=== PATIENT | male | born 1950 | race Caucasian/White ===

== ENCOUNTER 2017-12-15 08:43 | Outpatient (CLI) | payer MEDICARE, OTHER ==
--- NOTE | 2017-12-15 18:47 | Ultrasound Report ---
RIGHT LOWER EXTREMITY LIMITED NONVASCULAR ULTRASOUND: 12/15/2017 HISTORY: Pain at the below the knee amputation site. TECHNIQUE: Real-time scanning was performed with promotional representative static images obtained. FINDINGS: Ultrasound examination is performed in the area of clinical pain at the amputation site. No cystic or solid mass, fluid collection, or other abnormality is seen. IMPRESSION: NEGATIVE RIGHT LEG ULTRASOUND AT THE AMPUTATION SITE. AN EXPLANATION FOR PAIN IS NOT SEEN. TD: 12/15/2017 16:10
--- NOTE | 2017-12-15 18:50 | XRAY Report ---
RIGHT TIB-FIB: 12/15/2017 HISTORY: Amputation with pain at the amputation site. COMPARISON: None. FINDINGS: Patient has had a [id number] amputation. The amputation stump appears normal without evidence of periosteal reaction, significant heterotopic bone formation, foreign body, subcutaneous gas or other abnormality. There is adequate soft tissue covering the amputation site. IMPRESSION: NO UNEXPECTED FINDING STATUS POST BELOW THE KNEE AMPUTATION RIGHT LEG. TD: 12/15/2017 16:10
== END 2017-12-15 08:44 | disposition home or self-care (01) ==
LOC: DI 08:43
PROVIDERS: ATTEND Anesthesiology
DX: M79.604 Pain in right leg (principal); G54.6 Phantom limb syndrome with pain; Z89.511 Acquired absence of right leg below knee
CPT/HCPCS: 76882

== ENCOUNTER 2018-01-07 08:14 | Outpatient (CLI) | payer MEDICARE, OTHER ==
--- NOTE | 2018-01-08 08:40 | CT Report ---
Procedure Date: 01/07/2018 Accession Number: [id number] / [id number] Procedure: CT - Lumbar Spine W/O CPT Code: FULL RESULT: EXAM: CT LUMBAR SPINE WITHOUT CONTRAST EXAM DATE: 01/07/2018 09:11 AM. CLINICAL HISTORY: Chronic right lower extremity pain. COMPARISONS: None. TECHNIQUE: Thin-section axial images were acquired of the lumbar spine from T12 to S1 without contrast. Post-processing: Coronal and sagittal reformats. Other: None. In accordance with CT protocol optimization, one or more of the following dose reduction techniques were utilized for this exam: automated exposure control, adjustment of mA and/or KV based on patient size, or use of iterative reconstructive technique. FINDINGS: Alignment: Broad-based levoconvex asymmetric lumbar curve measuring about 11 degrees. Slight degenerative L2 on L3 retrolisthesis. Bones: Five [id number]-pwl-[id number] lumbar vertebral bodies are present. Diffuse chronic degenerative changes. No acute fracture, vertebral body height loss or displaced pars defect. Disk Levels/Facets: T12-L1: Degenerative anterior marginal spurring. Chronic small L1 superior endplate Schmorl's node anteriorly. No disk herniation or significant stenosis. L1-L2: Mild degenerative disk disease and facet arthropathy. Anterior marginal spurring. Asymmetric left of midline foraminal and extraforaminal zone disk protrusion. No significant stenosis or focal nerve root compression. L2-L3: Moderate degenerative disk disease. Vacuum disk. Marginal spurring. Disk space narrowing and chronic endplate degenerative appearing irregularities. Concentric disk bulge and additional asymmetric bulge or broad-based protrusion to the left of midline notably involving the left extraforaminal and foraminal zones. Mild to moderate foraminal narrowing on the left. The left subarticular zone is also mildly stenotic and on the right, mild to moderate foraminal stenosis is also present from intraforaminal disk protrusion with accompanying osteophytic spurring. Mild stenosis also of the central and right subarticular zones. L3-L4: Moderate degenerative disk disease. Moderate to marked right worse than left facet arthropathy. Marginal spurring. Diffuse disk bulge. Additional asymmetric bulge to the right of midline extending through the right foramen into the right extraforaminal zone. Moderately prominent stenosis of the central canal and lateral recesses secondary to bulging annulus and prominent posterior element hypertrophic degenerative changes including ligamenta flavum thickening. Degenerative foraminal stenosis is present bilaterally, mild on the left and moderate to severe on the right. L4-L5: Moderate degenerative disk disease. Mild right and moderate to severe left-sided facet arthropathy. Broad-based disk bulge is present accompanied by osteophytic spurring, especially prominent posteriorly with additional asymmetric bulge or broad-based protrusion to the left of midline contributing to stenosis of the left subarticular, foraminal and extraforaminal zones into which this asymmetric protrusion with osteophyte extends. Central stenosis is mild. Subarticular zone stenosis on the left is mild to moderate. Left foraminal zone stenosis is severe from a combination of soft disk and osteophyte as well as facet degenerative bony hypertrophy. Foraminal stenosis is at least moderate also on the right. L5-S1: Fused disk space. No significant stenosis. The L5 vertebra appears sacralized and transitional. Musculature: No acute abnormality or significant asymmetry. Other: Dorsal epidural spinal stimulator wire electrodes at T11 and T12. IMPRESSION: Prominent chronic multilevel degenerative changes in the lumbar spine with potentially significant multizone multilevel stenosis as detailed above. Mild broad-based levoscoliosis. Dorsal spinal nerve root stimulator hardware at the T11 and T12 levels. RADIA
== END 2018-01-07 08:15 | disposition home or self-care (01) ==
LOC: DI 08:14
PROVIDERS: ATTEND Internal Medicine
DX: M51.36 Other intervertebral disc degeneration, lumbar region (principal); M47.896 Other spondylosis, lumbar region; M51.26 Other intervertebral disc displacement, lumbar region; M48.061 Spinal stenosis, lumbar region without neurogenic claudication; Z97.8 Presence of other specified devices; M43.16 Spondylolisthesis, lumbar region; M41.86 Other forms of scoliosis, lumbar region
CPT/HCPCS: 72131

== ENCOUNTER 2020-01-13 06:51 | Outpatient (CLI) | payer MEDICARE, OTHER ==
--- NOTE | 2020-01-13 10:14 | Ultrasound Report ---
PROCEDURE: Aorta Screening INDICATIONS: AORTA SCREENING TECHNIQUE: Real time scanning was performed of the aorta and iliac arteries, with image documentatio n. COMPARISON: CT lumbar spine dated 01/07/2018 FINDINGS: Aorta: Proximal aortic diameter measures 2.8 x 2.7 cm. Mid-aorta measures 2.6 x 2.2 cm. Distal aor tic diameter is 2.2 x 2.1 cm. Iliac arteries: Right common iliac artery measures 1.6 cm. Left common iliac artery measures 1.5 cm . IMPRESSION: Abdominal aortic ectasia, stable. No evidence for abdominal aortic aneurysm. Recommend continued clinical and imaging surveillance with follow-up screening ultrasound in 5 years. Reviewed by: Carmine Desai MD on 01/13/2020 10:12 AM PDT Approved by: Carmine Desai MD on 01/13/2020 10:12 AM PDT Station ID: [id number]
--- NOTE | 2020-01-13 10:17 | Ultrasound Report ---
PROCEDURE: Bladder INDICATIONS: LOWER URINARY TRACT SX TECHNIQUE: Sonographic evaluation of the lower urinary collecting system. COMPARISON: None. FINDINGS: Multiple grayscale and color Doppler images of the urinary bladder and prostate were acquired. Visual ized urinary bladder wall is unremarkable for degree of bladder distention. No suspicious intralumina l mass lesion. Prevoid urinary bladder volume measured 293 mL. Post void residual volume measured 256 mL. Bilateral ureteral jets were visualized. Prostate gland measures 5.1 x 3.9 x 3.6 cm. Prostatic volume measured 37.4 mL. IMPRESSION: 1. Large post void residual volume of 256 mL. Otherwise, unremarkable sonographic evaluation of the u rinary bladder. 2. Prominent prostate gland. Reviewed by: Carmine Desai MD on 01/13/2020 10:16 AM PDT Approved by: Carmine Desai MD on 01/13/2020 10:16 AM PDT Station ID: [id number]
== END 2020-01-13 06:52 | disposition home or self-care (01) ==
LOC: DI 06:51
PROVIDERS: ATTEND Internal Medicine
DX: Z13.6 Encounter for screening for cardiovascular disorders (principal); I77.811 Abdominal aortic ectasia; N40.1 Benign prostatic hyperplasia with lower urinary tract symptoms
CPT/HCPCS: 76706; 76857

== ENCOUNTER 2020-12-31 14:36 | Inpatient (IN) | payer MEDICARE, OTHER ==
[2020-12-31 15:33] LABS: BASOPHILS # (AUTO) 0.1 10^3/uL (0.0-0.1); BASOPHILS % (AUTO) 0.7 %; EOSINOPHILS # (AUTO) 0.2 10^3/uL (0.0-0.7); EOSINOPHILS % (AUTO) 2.8 %; HCT - HEMATOCRIT 26.4 % (42.0-52.0); HGB - HEMOGLOBIN 8.6 g/dL (14.0-18.0); LYMPHOCYTES # (AUTO) 1.9 10^3/uL (1.5-3.5); LYMPHOCYTES % (AUTO) 23.6 %; MEAN CORPUSCULAR HEMOGLOBIN 29.9 pg (27.0-31.0); MEAN CORPUSCULAR HGB CONC 32.6 g/dL (32.0-36.0); MEAN CORPUSCULAR VOLUME 91.7 fL (80.0-94.0); MEAN PLATELET VOLUME 8.2 fL (7.4-11.4); MONOCYTES # (AUTO) 0.9 10^3/uL (0.0-1.0); MONOCYTES % (AUTO) 10.5 %; NEUTROPHILS # (AUTO) 5.1 10^3/uL (1.5-6.6); NEUTROPHILS % (AUTO) 62.2 %; PLT - PLATELET COUNT 278 10^3/uL (130-450); RED BLOOD COUNT 2.88 10^6/uL (4.70-6.10); RED CELL DISTRIBUTION WIDTH 13.4 % (12.0-15.0); WHITE BLOOD COUNT 8.2 x10^3/uL (4.8-10.8)
[2020-12-31 15:45] LABS: ALBUMIN 4.1 g/dL (3.2-5.5); ALBUMIN/GLOBULIN RATIO 1.5 (1.0-2.2); BILIRUBIN,TOTAL 0.6 mg/dL (0.2-1.0); CALCIUM 9.2 mg/dL (8.5-10.3); CREATININE 0.9 mg/dL (0.6-1.2); POTASSIUM 3.8 mmol/L (3.5-5.0); TOTAL PROTEIN 6.9 g/dL (6.7-8.2)
--- NOTE | 2020-12-31 15:54 | XRAY Report ---
PROCEDURE: Chest 1 View X-Ray INDICATIONS: Chest Pain TECHNIQUE: One view of the chest was acquired. COMPARISON: None FINDINGS: Surgical changes and devices: None. Lungs and pleura: No pleural effusions or pneumothorax. Lungs are clear. Mediastinum: Mediastinal contours appear normal. Heart size is normal. Bones and chest wall: No suspicious bony lesions. Overlying soft tissues appear unremarkable. IMPRESSION: No evidence acute pulmonary process. Reviewed by: Ronal Capps MD on 12/31/2020 2:53 PM LAINA Approved by: Ronal Capps MD on 12/31/2020 2:53 PM AKDT Station ID: [id number]
[2020-12-31] MEDS ORDERED: SODIUM CHLORIDE 0.9% 1,000 ML IV STA ×2 (16:37→16:39)
[2020-12-31] MEDS ORDERED: ONDANSETRON 4 MG/2 ML VIAL IVP PRN (16:43)
[2020-12-31] MEDS ORDERED: SODIUM CHLORIDE FLUSH 0.9% 10 ML SYRINGE IVP PRN (16:43)
--- NOTE | 2020-12-31 16:43 | ED Physician Documentation ---
History of Present Illness - Stated complaint Stated Complaint: CAN'T SWALLOW - Chief complaint Chief Complaint: Heent - History obtained from History obtained from: Patient, Family - History of Present Illness Timing: How many weeks ago (3-4) Pain level max: 0 Pain level now: 0 - Additonal information Additional information: Patient is a 70-year-old male who presents to the department today stating that he has had difficulty swallowing increasing over the past month or so. Has been down in [place], so did not seek care. Flew into [place] last night and came home today. He states that today he was attempting to eat an egg when even that had difficulty going down. He tried to drink milk afterwards and had to tilt himself forward so the milk would run back out. He states he is able to keep a very small amount of water down fluid. Unable to tolerate solids now. He states he has also had dark stools for the past several weeks. No colonoscopy in the past. Nothing makes it better or worse. No abdominal pain. No fevers. No chills. Currently not on any medications at home. Review of Systems Ten Systems: 10 systems reviewed and negative Constitutional: denies: Fever, Chills Ears: denies: Ear pain Nose: denies: Rhinorrhea / runny nose, Congestion Throat: denies: Sore throat Cardiac: denies: Chest pain / pressure Respiratory: denies: Cough, Wheezing GI: reports: Bloody / black stool. denies: Vomiting, Diarrhea, Hematemesis : denies: Dysuria, Frequency, Hesitancy Skin: denies: Rash Musculoskeletal: denies: Neck pain, Back pain Neurologic: denies: Headache PD PAST MEDICAL HISTORY - Past Medical History Past Medical History: No - Past Surgical History Past Surgical History: No - Allergies Allergies/Adverse Reactions: Allergies Allergy/AdvReac Type Severity Reaction Status Date / Time Tetanus Vaccines and Toxoid Allergy Unknown Verified 12/31/20 15:04 - Living Situation Living Situation: reports: With family Living Arrangement: reports: At home - Social History Does the pt have substance abuse?: No - Family History Family history: reports: Non contributory PD ED PE NORMAL - Vitals Vital signs reviewed: Yes - General General: Alert and oriented X 3, No acute distress - HEENT HEENT: PERRL, EOMI, Moist mucous membranes, Pharynx benign - Neck Neck: Supple, no meningeal sign - Cardiac Cardiac: RRR - Respiratory Respiratory: No respiratory distress, Clear bilaterally - Abdomen Abdomen: Soft, Non tender, Non distended - Rectal Rectal: Pt declined - Derm Derm: Warm and dry - Neuro Neuro: Alert and oriented X 3 - Psych Psych: Normal mood, Normal affect Results - Vitals Vitals: Vital Signs - 24 hr 12/31/20 14:55 Temperature 36.5 C Heart Rate 92 Respiratory 16 Rate Blood Pressure 116/66 O2 Saturation 98 Oxygen O2 Source Room air - Labs Labs: Laboratory Tests 12/31/20 12/31/20 12/31/20 15:29 15:29 15:29 WBC 8.2 RBC 2.88 L Hgb 8.6 L Hct 26.4 L MCV 91.7 MCH 29.9 MCHC 32.6 RDW 13.4 Plt Count 278 MPV 8.2 Neut # (Auto) 5.1 Lymph # (Auto) 1.9 [place] # (Auto) 0.9 Eos # (Auto) 0.2 Baso # (Auto) 0.1 Absolute Nucleated RBC 0.00 Nucleated RBC % 0.0 Sodium 141 Potassium 3.8 Chloride 106 Carbon Dioxide 26 Anion Gap 9.0 BUN 20 Creatinine 0.9 Estimated GFR (MDRD) 84 L Glucose 121 H Calcium 9.2 Total Bilirubin 0.6 AST 14 ALT 11 Alkaline Phosphatase 59 Troponin I High Sens 4.9 Total Protein 6.9 Albumin 4.1 Globulin 2.8 Albumin/Globulin Ratio 1.5 Lipase 24 PD MEDICAL DECISION MAKING - ED course Complexity details: reviewed results, re-evaluated patient, considered differential, d/w patient, d/w webmethods consultant ED course: Patient is a 70-year-old male with difficulty swallowing. Unable to tolerate solid foods currently. Able to drink small amounts of water, and manage saliva only. He does appear dehydrated. Given IV fluids. He also has a significant drop in his hemoglobin and has had dark stools. Given the inability to keep himself hydrated along with the significant anemia, discussed the case with Dr. Wright, general surgery who will plan for endoscopy and colonoscopy tomorrow. Discussed the case with Dr. Melendez, hospitalist who accepts This document was made in part using voice recognition software. While efforts are made to proofread this document, sound alike and grammatical errors may occur. Departure - Departure Disposition: ED Place in Observation Clinical Impression: Symptomatic anemia GI bleed Qualifiers: GI bleed type/associated pathology: unspecified gastrointestinal hemorrhage type Qualified Code(s): K92.2 - Gastrointestinal hemorrhage, unspecified Dysphagia Qualifiers: Dysphagia type: unspecified Qualified Code(s): R13.10 - Dysphagia, unspecified Condition: Stable Discharge Date/Time: 12/31/20 17:17
[2020-12-31] MEDS: D5NS W/20 MEQ KCL 1,000 ML IV SCH (17:41)
[2020-12-31] MEDS: SODIUM CHLORIDE FLUSH 0.9% 10 ML SYRINGE IVP SCH (17:48)
[2020-12-31 18:02] LABS: B. PARAPERTUSSIS- RESP PCR PAN NOT DETECTED; B. PERTUSSIS- RESP PCR PANEL NOT DETECTED; C. PNEUMONIAE- RESP PCR PANEL NOT DETECTED; CORONAVIRUS 229E-RESP PCR NOT DETECTED; CORONAVIRUS HKU1-RESP PCR NOT DETECTED; CORONAVIRUS NL63-RESP PCR NOT DETECTED; CORONAVIRUS OC43-RESP PCR NOT DETECTED; HUMAN METAPNEUMOVIRUS NOT DETECTED; INFLUENZA A- RESP PCR PANEL NOT DETECTED; INFLUENZA B - RESP PCR PANEL NOT DETECTED; M. PNEUMONIAE- RESP PCR PANEL NOT DETECTED; PARAINFLUENZA VIRUS 1 NOT DETECTED; PARAINFLUENZA VIRUS 2 NOT DETECTED; PARAINFLUENZA VIRUS 3 NOT DETECTED; PARAINFLUENZA VIRUS 4 NOT DETECTED; RHINOVIRUS/ENTEROVIRUS NOT DETECTED; RSV- RESP PCR PANEL NOT DETECTED; SARS-CoV-2 -RESP PCR PANEL NOT DETECTED
--- NOTE | 2020-12-31 19:05 | HISTORY & PHYSICAL EXAMINATION ---
Chief Complaint - Chief Complaint Chief Complaint: dysphagia and odynophagia History of Present Illness - Admitted From Admitted From:: [facility] ED - History Obtained From Records Reviewed: yes History obtained from: patient - History of Present Illness HPI Comment/Other: Patient is a 70-year-old male with medical history significant for insomnia only who presented to the ED today with complaint of difficulty and pain with swallowing. His symptoms have been going on for a couple of weeks. He normally resides in [facility] 8 months of the year and just returned yesterday. He reports chest pain with deep inspiration and a feeling like he has/needs to burp. 2 days ago he was able to tolerate ice cream. He can handle scrambled eggs however he has significant problems with foods like bread. With liquids like water he has to be sitting straight upright to be able to drink and after a period of time he still experiences dysphagia despite the caution. He also describes an incident 2 nights ago while he was eating he suddenly felt like everything was stuck in his throat. He went to the bathroom and simply leaned over and everything came back up. He denies nausea, vomiting, fever or chills. He reports mild abdominal pain. He has lost 40 pounds in the past 6 months but reports it was intentional. He is being admitted for further work-up to include an EGD. 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 Nerve stim place 2015. Removed 2019) - Family & Social History Family History Comment/Other: He denies any significant family history. Living arrangement: At home Living Situation: With spouse/s.o. Social History Notes: He lives with his . 8 months out of 12 in [place] and 4 months on [facility]. He is independent of activities of daily living. He does not use tobacco products, use alcohol or recreational substances. - POLST Patient has POLST: No POLST Status: Full Code Meds/Allgy - Allergies Allergies/Adverse Reactions: Allergies Allergy/AdvReac Type Severity Reaction Status Date / Time Tetanus Vaccines and Toxoid Allergy Unknown Verified 12/31/20 15:04 Review of Systems - Constitutional Constitutional: denies: Fatigue, Fever, Chills, Weakness - Eyes Eyes: denies: Pain - Ears, Nose & Throat Ears, Nose & Throat: denies: Ear pain - Cardiovascular Cariovascular: denies: Irregular heart rate, Palpitations, Chest pain, Edema - Respiratory Respiratory: denies: Cough, Sputum production, Wheezing, SOB at rest, SOB with exertion - Gastrointestinal Gastrointestinal: reports: Reflux/heartburn. denies: Abdominal distention, Nausea, Vomiting - Genitourinary Genitourinary: denies: Dysuria, Frequency, Urgency, Hematuria - Musculoskeletal Musculoskeletal: reports: Other (right bka stump). denies: Muscle pain, Back pain, Muscle aches - Integumentary Integumentary: denies: Rash, Pruritis, Lesions - Neurological Neurological: denies: General weakness, Focal weakness, Headache, Dizziness - Psychiatric Psychiatric: denies: Depression, Anxiety - Endocrine Endocrine: denies: Polyuria, Polydypsia - Hematologic/Lymphatic Hematologic/Lymphatic: denies: Anemia, Bruising Prior Level of Functionality: Patient is independent of activities of daily living. Exam - Vital Signs Vital Signs: Vital Signs x48h Temp Pulse Pulse Resp BP BP Pulse Ox 12/31/20 18:27 37.8 C 61 16 133/62 H 97 12/31/20 17:13 36.5 C 66 18 137/73 H 100 12/31/20 14:55 36.5 C 92 16 116/66 98 - Physical Exam General Appearance: positive: No acute distress, Alert Eyes Bilateral: positive: PERRL, EOMI ENT: positive: No signs of dehydration Neck: positive: Nml inspection, No JVD, Trachea midline Respiratory: positive: Chest non-tender, No respiratory distress, Breath sounds nml. negative: Wheezes, Rales, Rhonchi Cardiovascular: positive: Regular rate & rhythm, No murmur Abdomen: positive: Non-tender, Nml bowel sounds, No distention. negative: Guarding, Rebound Back: positive: Nml inspection Skin: positive: No rash, Warm, Dry Extremities: positive: Full ROM, No pedal edema, Other (tenderness at right bka stump) Neurologic/Psychiatric: positive: Oriented x3, Mood/affect nml Conclusion/Plan - Problem List (1) Dysphagia Conclusion/Plan: Patient made strict n.p.o. IV hydration with D5+normal saline+ 20 mEq KCl at 83 mL/h Dr. Euceda with general surgery consulted for EGD in the morning Another consideration is differential will be Chaga's Disease. Qualifiers: Dysphagia type: unspecified Qualified Code(s): R13.10 - Dysphagia, unspecified (2) Odynophagia Conclusion/Plan: Patient made strict n.p.o. IV hydration with D5+normal saline+ 20 mEq KCl at 83 mL/h Dr. Euceda with general surgery consulted for EGD in the morning (3) Insomnia Conclusion/Plan: On zolpidem - Lab Results Fish Bones: 12/31/20 15:29 12/31/20 15:29 Core Measures - Anticipated LOS I expect patient to be DC'd or transferred within 96 hours.: Yes - DVT/VTE - Prophylaxis VTE/DVT Device ordered at admit?: Yes
[2020-12-31] MEDS: HYDROcod/ACETAM 7.5 MG/325 MG TABLET PO PRN (20:06)
[2020-12-31] MEDS: ZOLPIDEM 5 MG TABLET PO PRN (22:52)
[2021-01-01] MEDS: SODIUM CHLORIDE FLUSH 0.9% 10 ML SYRINGE IVP SCH ×4 (02:47→23:46)
[2021-01-01] MEDS: HYDROcod/ACETAM 7.5 MG/325 MG TABLET PO PRN ×3 (05:26→19:27)
[2021-01-01] MEDS: D5NS W/20 MEQ KCL 1,000 ML IV SCH ×2 (05:30→16:57)
[2021-01-01 05:37] LABS: HCT - HEMATOCRIT 24.1 % (42.0-52.0); HGB - HEMOGLOBIN 7.7 g/dL (14.0-18.0); MEAN CORPUSCULAR HEMOGLOBIN 29.1 pg (27.0-31.0); MEAN CORPUSCULAR VOLUME 90.9 fL (80.0-94.0); MEAN PLATELET VOLUME 8.7 fL (7.4-11.4); RED BLOOD COUNT 2.65 10^6/uL (4.70-6.10); RED CELL DISTRIBUTION WIDTH 13.1 % (12.0-15.0); WHITE BLOOD COUNT 5.4 x10^3/uL (4.8-10.8)
[2021-01-01 05:54] LABS: CALCIUM 8.2 mg/dL (8.5-10.3); CREATININE 0.8 mg/dL (0.6-1.2); POTASSIUM 3.5 mmol/L (3.5-5.0)
[2021-01-01 06:16] LABS: FOLATE 10.01 ng/mL (5.90 - >24.8)
--- NOTE | 2021-01-01 08:40 | HISTORY & PHYSICAL EXAMINATION ---
Chief Complaint - Chief Complaint Chief Complaint: pain and difficulty on swallowing History of Present Illness - Admitted From Admitted From:: ED - History Obtained From Records Reviewed: yes History obtained from: pt Exam Limitations: none - History of Present Illness HPI Comment/Other: He describes living a healthy life and being well until about 3 weeks ago. He had about 30 lbs intentional weight loss on a keto diet. About 3 weeks ago he developed progressive difficulty and pain on swallowing and presence of low c hest epigastric pain. He states he does not drink, smoke, and has had no significant heart burn symptoms. He denies lower abdominal symptoms. 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 Nerve stim place 2015. Removed 2019) - Family & Social History Family History Comment/Other: He denies any significant family history. Living arrangement: At home Living Situation: With spouse/s.o. Social History Notes: He lives with his . 8 months out of 12 in [place] and 4 months on [facility]. He is independent of activities of daily living. He does not use tobacco products, use alcohol or recreational substances. - POLST Patient has POLST: No POLST Status: Full Code Meds/Allgy - Allergies Allergies/Adverse Reactions: Allergies Allergy/AdvReac Type Severity Reaction Status Date / Time Tetanus Vaccines and Toxoid Allergy Unknown Verified 12/31/20 15:04 Review of Systems - Other Findings Other Findings: 10 pt ros as above otherwise unremarkable Exam - Vital Signs Reviewed Vital Signs: Yes Vital Signs: Vital Signs x48h Temp Pulse Resp BP Pulse Ox 01/01/21 07:15 37.3 C 62 18 124/69 97 01/01/21 03:14 37.0 C 70 18 135/55 H 96 - Physical Exam General Appearance: positive: Alert Eyes Bilateral: positive: PERRL, EOMI Neck: positive: No JVD Respiratory: positive: No respiratory distress, Breath sounds nml Cardiovascular: positive: Regular rate & rhythm Abdomen: positive: Non-tender, No distention Neurologic/Psychiatric: positive: Oriented x3 Conclusion/Plan - Problem List (1) Dysphagia Conclusion/Plan: Plan EGD with biopsies, possible dilation. parq held and consent obtained Qualifiers: Dysphagia type: unspecified Qualified Code(s): R13.10 - Dysphagia, unspecified - Lab Results Fish Bones: 01/01/21 05:20 01/01/21 05:20 - Diagnostic Imaging Results Diagnostic Imaging Results: positive: Read independently (normal chest xray)
--- NOTE | 2021-01-01 10:52 | PHARMACY PROGRESS NOTE ---
- Best Possible Medication History Admit Date and Time: 12/31/20 6701 Processed by: Pharmacy Medication History completed: Yes Patient Interview: Completed (PATIENT ABLE TO CONFIRM HOME MEDICATIONS) As the person ultimately responsible for medication therapy, providers are able to order a medication from an existing home medication list in [facility] via the "Reconcile Routine" prior to Confirmation of that medication by human resources support specialist. Such practice is discouraged except when the physician, in their clinical judgment, deems that a medical need exists for a medication without regard to previous use.
--- NOTE | 2021-01-01 12:40 | ANESTHESIA ---
Pre-Anesthesia VS, & Labs - Diagnosis anemia, dysphagia - Procedure EGD Vital Signs: Temp Pulse Resp BP Pulse Ox 37.3 C 71 16 131/64 H 98 01/01/21 11:00 01/01/21 11:00 01/01/21 11:00 01/01/21 11:00 01/01/21 11:00 Height: 6 ft 5 in Weight (kg): 89.35 kg Body Mass Index: 23.3 BMI Classification: Healthy weight - NPO >8 hours - Lab Results Current Lab Results: Laboratory Tests 01/01/21 05:20: Vitamin B12 380, Folate 10.01 01/01/21 05:20: Sodium 138, Potassium 3.5, Chloride 106, Carbon Dioxide 23, Anion Gap 9.0, BUN 13, Creatinine 0.8, Estimated GFR (MDRD) 96, Glucose 117 H, Calcium 8.2 L, Iron 24 L, TIBC 329, % Saturation 7 L, Transferrin 235 01/01/21 05:20: WBC 5.4, RBC 2.65 L, Hgb 7.7 L, Hct 24.1 L, MCV 90.9, MCH 29.1, MCHC 32.0, RDW 13.1, Plt Count 224, MPV 8.7 12/31/20 15:29: Troponin I High Sens 4.9 12/31/20 15:29: Sodium 141, Potassium 3.8, Chloride 106, Carbon Dioxide 26, Anion Gap 9.0, BUN 20, Creatinine 0.9, Estimated GFR (MDRD) 84 L, Glucose 121 H, Calcium 9.2, Total Bilirubin 0.6, AST 14, ALT 11, Alkaline Phosphatase 59, Total Protein 6.9, Albumin 4.1, Globulin 2.8, Albumin/Globulin Ratio 1.5, Lipase 24 12/31/20 15:29: WBC 8.2, RBC 2.88 L, Hgb 8.6 L, Hct 26.4 L, MCV 91.7, MCH 29.9, MCHC 32.6, RDW 13.4, Plt Count 278, MPV 8.2, Neut # (Auto) 5.1, Lymph # (Auto) 1.9, [place] # (Auto) 0.9, Eos # (Auto) 0.2, Baso # (Auto) 0.1, Absolute Nucleated RBC 0.00, Nucleated RBC % 0.0 Fish Bones: 01/01/21 05:20 01/01/21 05:20 Home Medications and Allergies Home Medications: Ambulatory Orders Citalopram [CeleXA] 10 mg PO DAILY 01/01/21 HYDROcodone/ACET 10/325 [[place] 10 mg/325 mg] 1 tab PO BID PRN 01/01/21 Lisinopril [Zestril] 20 mg PO DAILY 01/01/21 Zolpidem Tartrate [Ambien] 10 mg PO QPM PRN 01/01/21 Active Medications Hydrocodone Bitart/Acetaminophen (Hydrocod/Acetam 7.5 Mg/325 Mg Tablet) 1 tab PO Q4HR PRN PRN Reason: PAIN Last Admin: 01/01/21 09:44 Dose: 1 tab Documented by: Potassium Chloride/Dextrose/Sod Cl (D5ns W/20 Meq Kcl) 1,000 mls @ 83.33 mls/hr IV .Q12H1M [facility] Last Admin: 01/01/21 05:30 Dose: 83.33 mls/hr Documented by: Ondansetron HCl (Ondansetron 4 Mg/2 Ml Vial) 4 mg IVP Q6HR PRN PRN Reason: Nausea / Vomiting Sodium Chloride (Sodium Chloride Flush 0.9% 10 Ml Syringe) 10 ml IVP PRN PRN PRN Reason: NEEDED PER PROVIDER ORDERS Sodium Chloride (Sodium Chloride Flush 0.9% 10 Ml Syringe) 10 ml IVP 0100,0900,1700 [facility] Last Admin: 01/01/21 09:45 Dose: Not Given Documented by: Zolpidem Tartrate (Zolpidem 5 Mg Tablet) 5 mg PO QPM PRN PRN Reason: Insomnia Last Admin: 12/31/20 22:52 Dose: 5 mg Documented by: Citalopram [CeleXA] 10 mg PO DAILY 01/01/21 HYDROcodone/ACET 10/325 [[place] 10 mg/325 mg] 1 tab PO BID PRN 01/01/21 Lisinopril [Zestril] 20 mg PO DAILY 01/01/21 Zolpidem Tartrate [Ambien] 10 mg PO QPM PRN 01/01/21 Allergies/Adverse Reactions: Allergies Allergy/AdvReac Type Severity Reaction Status Date / Time Tetanus Vaccines and Toxoid Allergy Unknown Verified 12/31/20 15:04 Anes History & Medical History - Anesthetic History Anesthesia Complications: reports: No previous complications - Medical History Cardiovascular: reports: None Pulmonary: reports: None Gastrointestinal: reports: Other (dysphagia) Urinary: reports: None Neuro: reports: None Musculoskeletal: reports: None, Other (recent weightloss 40 lbs) Endocrine/Autoimmune: reports: None Blood Disorders: reports: Anemia Skin: reports: None Smoking Status: Never smoker Psychosocial: reports: No issues indicated History of Cancer?: No Other Past Medical History: Insomnia - Surgical History Orthopedic: reports: Other (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 Nerve stim place 2016. Removed 2019) Exam General: Alert, Oriented x3, Cooperative, No acute distress Dental: WNL Mouth Openin Fingerbreadth Neck Mobility: Normal Mallampati classification: II Thyromental Distance: 4-6 cm Mental/Cognitive Status: Alert/Oriented X3, Normal for patient Plan Anesthesia Type: Total IV Consent for Procedure(s) Verified and Reviewed: Yes Code Status: Attempt Resuscitation ASA classification: 2-Mild systemic disease Is this case an emergency?: No
[2021-01-01] MEDS ORDERED: LIDOCAINE-MPF 2% 5 ML VIAL ONE (15:07)
[2021-01-01] MEDS ORDERED: fentaNYL 100 MCG/2 ML VIAL ONE (15:07)
[2021-01-01] MEDS ORDERED: MIDAZOLAM 2 MG/2 ML VIAL ONE (15:07)
[2021-01-01] MEDS ORDERED: PROPOFOL 200 MG/20 ML VIAL IVP ONE (15:07)
--- NOTE | 2021-01-01 15:57 | PROVIDER PROGRESS NOTE ---
Progress Note 70-year-old male who presents with anemia as well as dysphagia, dyspepsia, who was recommended for upper endoscopy per my partner covering call. He is status post below that listed procedures: 1. On entering the esophagus immediately appreciated was a large necrotic distal esophageal/gastroesophageal mass with friability and associated oozing 2. There were variceal-like prominences within the gastric cardia extending from the esophagus which were difficult to delineate from the associated necrosis from the gastroesophageal junctional mass 3. Duodenum normal. No evidence of of duodenitis. Cold forcep biopsy obtained. Hemostatic. 4. Antrum without any antritis. Biopsies obtained cold forceps. Hemostatic. Patent pylorus. 5. Retroflexion was notable for the above listed areas including the necrotic gastroesophageal junctional mass and cardial prominence is consistent with varices. 6. Necrotic tumor biopsied Gastroesophageal junction circumferential.. This was performed cautiously to assure no issues as it relates to bleeding. Plan would be as follows: 1. Transfer to a higher level of care with the ability to address endoscopic hemostasis. 2. Imaging to include staging work-up for what is likely a forgot gastroesophageal malignancy 3. Facility with oncologic resources including radiation amongst others including advance interventional gastroenterology 4. Serial H&H's, transfuse as necessary. 5. Bowel rest Please note that voice recognition software was used to transcribe this note and inadvertent errors might persist in spite of review and editing. I am obliged to you for your attention. I am thankful to you for allowing me to participate with you in this care of this patient.
--- NOTE | 2021-01-01 16:10 | PROVIDER PROGRESS NOTE ---
Assessment/Plan - Problem List (1) Gastric mass Assessment/Plan: The patient underwent EGD done by Dr. George Euceda today. The findings are that of a bleeding gastric mass which is likely malignancy. Was likely causing the obstruction, inability to swallow and pain with swallowing. Will admit to full inpatient status for further management of this. He may need transfer to specialized gastric surgeons, per Dr. Euceda recommendations. Will follow hemoglobin and transfuse if he goes under 7. (2) Esophageal varices determined by endoscopy Assessment/Plan: This patient denied drinking any alcohol or having alcohol abuse issues. Possibly back pressure from the obstructing mass may have caused the esophageal varices. We will continue n.p.o. status. Plan to transfer to specialists: GI, surgery, for higher level of care. (3) UGI bleed Assessment/Plan: This mass is bleeding and he also has esophageal varices which could have bled. Will follow hemoglobin q12 hand transfuse if he goes under 7. (4) Anemia Assessment/Plan: As in #3 above. (5) Insomnia Assessment/Plan: As per Hx - Current Meds Current Meds: Current Medications Generic Name Dose Route Start Last Admin Trade Name Freq PRN Reason Stop Dose Admin Hydrocodone Bitart/Acetaminophen 1 tab 12/31/20 19:42 01/01/21 09:44 Hydrocod/Acetam 7.5 Mg/325 Mg Tablet PO 1 tab Q4HR PRN Administration PAIN Potassium Chloride/Dextrose/Sod Cl 1,000 mls @ 83.33 mls/hr 12/31/20 17:00 01/01/21 05:30 D5ns W/20 Meq Kcl IV 83.33 mls/hr .Q12H1M SERVANDO Administration Sodium Chloride 10 ml 12/31/20 17:00 01/01/21 09:45 Sodium Chloride Flush 0.9% 10 Ml Syringe IVP Not Given 0100,0900,1700 SERVANDO Zolpidem Tartrate 5 mg 12/31/20 20:29 12/31/20 22:52 Zolpidem 5 Mg Tablet PO 5 mg QPM PRN Administration Insomnia - Lab Result Fish Bone Diagrams: 01/02/21 17:15 01/02/21 05:20 - Additional Planning My Orders: My Active Orders 12/31/20 16:43 Oxygen Therapy [RC] .PRN Ondansetron Inj [Zofran Inj] 4 mg IVP Q6HR PRN Sodium Chloride Flush 0.9% [Normal Saline Flush 0.9%] 10 ml IVP PRN PRN 12/31/20 16:44 Activity Orders [RC] Q2HR IO [RC] IOSHIFT Initiate Bowel Care Protocol [RC] .protocol Initiate Line Care Protocol [RC] QSHIFT Initiate Personal Care Protoco [RC] .protocol Vital Signs [RC] Q4HR Code Status [OTHERS] Routine Condition of Patient [OTHERS] Routine DVT Prophylaxis [OTHERS] Routine 12/31/20 16:46 IV Insert [RC] .ONCE MARIA ALEJANDRA Hose [RC] QSHIFT 12/31/20 17:00 D5ns W/20 Meq KCl 1,000 ml IV 83.33 mls/hr Sodium Chloride Flush 0.9% [Normal Saline Flush 0.9%] 10 ml IVP 0100,0900,1700 01/01/21 08:00 General Surgery Consult [CONS] Routine 01/01/21 10:53 DIET [NPO] [DIET] 01/01/21 16:04 Admit [Admit \\ Transfer \\ Status] [RC] .ONCE 01/01/21 17:00 HEMOGLOBIN AND HEMATOCRIT [HEME] Q12H 01/02/21 05:00 CMP [COMPREHENSIVE METABOLIC PANEL] [CHEM] DAILYLAB HEMOGLOBIN AND HEMATOCRIT [HEME] Q12H 01/02/21 17:00 HEMOGLOBIN AND HEMATOCRIT [HEME] Q12H 01/03/21 05:00 HEMOGLOBIN AND HEMATOCRIT [HEME] Q12H Subjective - Subjective Patient Reports: Resting Comfortably, Other (Has "hunger pains". He thinks he will be able to tolerate clear liquids.) Objective Vital Signs: Vital Signs - 24 hr 12/31/20 12/31/20 12/31/20 17:13 18:27 23:49 Temperature 36.5 C 37.8 C 36.5 C Heart Rate 66 Heart Rate [ 61 95 Brachial] Respiratory 18 16 14 Rate Blood Pressure 137/73 H Blood Pressure 133/62 H 119/64 [Left Brachial artery] O2 Saturation 100 97 95 01/01/21 01/01/21 01/01/21 03:14 07:15 11:00 Temperature 37.0 C 37.3 C 37.3 C Heart Rate Heart Rate [ 70 62 71 Brachial] Respiratory 18 18 16 Rate Blood Pressure Blood Pressure 135/55 H 124/69 131/64 H [Left Brachial artery] O2 Saturation 96 97 98 01/01/21 16:03 Temperature 37.1 C Heart Rate Heart Rate [ 88 Brachial] Respiratory 18 Rate Blood Pressure Blood Pressure 149/78 H [Left Brachial artery] O2 Saturation 96 Oxygen O2 Source Room air I&O (Last 24 Hrs): Intake and Output Totals x24h 12/30/20 12/31/20 01/01/21 23:59 23:59 23:59 Intake Total 500 983.294 Output Total 1725 Balance 500 -741.706 General: Alert, Oriented x3 HEENT: Mucous membr. moist/pink Neck: Supple, No JVD Neuro: Alert, Non Focal Cardiovascular: Regular rate, No murmurs Respiratory: No respiratory distress, Breath sounds nml Abdomen: Normal bowel sounds, Soft, No tenderness Extremities: No edema - Results Results: Laboratory Results WBC 5.4 x10^3/uL (4.8-10.8) 01/01/21 05:20 RBC 2.65 10^6/uL (4.70-6.10) L 01/01/21 05:20 Hgb 7.7 g/dL (14.0-18.0) L 01/01/21 05:20 Hct 24.1 % (42.0-52.0) L 01/01/21 05:20 MCV 90.9 fL (80.0-94.0) 01/01/21 05:20 MCH 29.1 pg (27.0-31.0) 01/01/21 05:20 MCHC 32.0 g/dL (32.0-36.0) 01/01/21 05:20 RDW 13.1 % (12.0-15.0) 01/01/21 05:20 Plt Count 224 10^3/uL (130-450) 01/01/21 05:20 MPV 8.7 fL (7.4-11.4) 01/01/21 05:20 Neut # (Auto) 5.1 10^3/uL (1.5-6.6) 12/31/20 15:29 Lymph # (Auto) 1.9 10^3/uL (1.5-3.5) 12/31/20 15:29 [place] # (Auto) 0.9 10^3/uL (0.0-1.0) 12/31/20 15:29 Eos # (Auto) 0.2 10^3/uL (0.0-0.7) 12/31/20 15:29 Baso # (Auto) 0.1 10^3/uL (0.0-0.1) 12/31/20 15:29 Absolute Nucleated RBC 0.00 x10^3/uL 12/31/20 15:29 Nucleated RBC % 0.0 /100WBC 12/31/20 15:29 Sodium 138 mmol/L (135-145) 01/01/21 05:20 Potassium 3.5 mmol/L (3.5-5.0) 01/01/21 05:20 Chloride 106 mmol/L (101-111) 01/01/21 05:20 Carbon Dioxide 23 mmol/L (21-32) 01/01/21 05:20 Anion Gap 9.0 (6-13) 01/01/21 05:20 BUN 13 mg/dL (6-20) 01/01/21 05:20 Creatinine 0.8 mg/dL (0.6-1.2) 01/01/21 05:20 Estimated GFR (MDRD) 96 (>89) 01/01/21 05:20 Glucose 117 mg/dL (70-100) H 01/01/21 05:20 Calcium 8.2 mg/dL (8.5-10.3) L 01/01/21 05:20 Iron 24 ug/dL (45-182) L 01/01/21 05:20 TIBC 329 ug/dL (250-450) 01/01/21 05:20 % Saturation 7 % (20-50) L 01/01/21 05:20 Transferrin 235 mg/dL (180-329) 01/01/21 05:20 Total Bilirubin 0.6 mg/dL (0.2-1.0) 12/31/20 15:29 AST 14 IU/L (10-42) 12/31/20 15:29 ALT 11 IU/L (10-60) 12/31/20 15:29 Alkaline Phosphatase 59 IU/L (42-121) 12/31/20 15:29 Troponin I High Sens 4.9 ng/L (2.3-19.7) 12/31/20 15:29 Total Protein 6.9 g/dL (6.7-8.2) 12/31/20 15:29 Albumin 4.1 g/dL (3.2-5.5) 12/31/20 15:29 Globulin 2.8 g/dL (2.1-4.2) 12/31/20 15:29 Albumin/Globulin Ratio 1.5 (1.0-2.2) 12/31/20 15:29 Lipase 24 U/L (22-51) 12/31/20 15:29 Vitamin B12 380 pg/mL (180-914) 01/01/21 05:20 Folate 10.01 ng/mL (5.90 - >24.8) 01/01/21 05:20 Nasal Adenovirus (PCR) NOT DETECTED 12/31/20 16:57 Nasal B. parapertussis DNA (PCR) NOT DETECTED 12/31/20 16:57 Nasal Coronavir 229E PCR NOT DETECTED 12/31/20 16:57 Nasal Coronavir HKU1 PCR NOT DETECTED 12/31/20 16:57 Nasal Coronavir NL63 PCR NOT DETECTED 12/31/20 16:57 Nasal Coronavir OC43 PCR NOT DETECTED 12/31/20 16:57 Nasal Enterovir/Rhinovir PCR NOT DETECTED 12/31/20 16:57 Nasal Influenza B PCR NOT DETECTED 12/31/20 16:57 Nasal Influenza A PCR NOT DETECTED 12/31/20 16:57 Nasal Parainfluen 1 PCR NOT DETECTED 12/31/20 16:57 Nasal Parainfluen 2 PCR NOT DETECTED 12/31/20 16:57 Nasal Parainfluen 3 PCR NOT DETECTED 12/31/20 16:57 Nasal Parainfluen 4 PCR NOT DETECTED 12/31/20 16:57 Nasal RSV (PCR) NOT DETECTED 12/31/20 16:57 Nasal B.pertussis DNA PCR NOT DETECTED 12/31/20 16:57 Nasal C.pneumoniae (PCR) NOT DETECTED 12/31/20 16:57 David Human Metapneumo PCR NOT DETECTED 12/31/20 16:57 Nasal M.pneumoniae (PCR) NOT DETECTED 12/31/20 16:57 Nasal SARS-CoV-2 (PCR) NOT DETECTED 12/31/20 16:57
[2021-01-01 17:13] LABS: HCT - HEMATOCRIT 24.3 % (42.0-52.0); HGB - HEMOGLOBIN 7.8 g/dL (14.0-18.0)
--- NOTE | 2021-01-01 18:06 | ANESTHESIA POST OP EVALUATION ---
Anesthesia Post Eval - Post Anesthesia Eval Vitals: Last Vital Signs Temp 37.1 C 01/01/21 16:03 Pulse 88 01/01/21 16:03 Resp 18 01/01/21 16:03 BP 149/78 H 01/01/21 16:03 Pulse Ox 96 01/01/21 16:03 CV Function Including HR & BP: Stable Pain Control: Satisfactory Nausea & Vomiting: Negative Mental Status: Baseline Respiratory Status: Airway Patent Hydration Status: Satisfactory Anesthesia Complications: None
[2021-01-01] MEDS: ZOLPIDEM 5 MG TABLET PO PRN (23:45)
[2021-01-02] MEDS: D5NS W/20 MEQ KCL 1,000 ML IV SCH ×2 (04:38→16:40)
[2021-01-02] MEDS: HYDROcod/ACETAM 7.5 MG/325 MG TABLET PO PRN ×5 (04:38→22:08)
[2021-01-02 05:50] LABS: HCT - HEMATOCRIT 24.2 % (42.0-52.0); HGB - HEMOGLOBIN 7.8 g/dL (14.0-18.0)
[2021-01-02 06:00] LABS: ALBUMIN 3.4 g/dL (3.2-5.5); ALBUMIN/GLOBULIN RATIO 1.3 (1.0-2.2); ALKALINE PHOSPHATASE 59 IU/L (42-121); ALT ALANINE AMINOTRANSFERASE < 10 IU/L (10-60); AST ASPARTATE AMINOTRANSFERASE 11 IU/L (10-42); BILIRUBIN,TOTAL 0.6 mg/dL (0.2-1.0); BUN - BLOOD UREA NITROGEN 8 mg/dL (6-20); CALCIUM 8.2 mg/dL (8.5-10.3); CARBON DIOXIDE - CO2 23 mmol/L (21-32); CHLORIDE 106 mmol/L (101-111); CREATININE 0.6 mg/dL (0.6-1.2); GFR - MDRD 134 (>89); GLUCOSE 108 mg/dL (70-100); POTASSIUM 3.5 mmol/L (3.5-5.0); SODIUM 137 mmol/L (135-145)
[2021-01-02] MEDS: SODIUM CHLORIDE FLUSH 0.9% 10 ML SYRINGE IVP SCH ×2 (10:01→17:34)
[2021-01-02] MEDS ORDERED: polyethylene glycoL 3350 17 GM PACKET PO SCH (14:00)
--- NOTE | 2021-01-02 17:03 | Discharge Plan ---
Discharge Plan Problem Reviewed?: Yes Disposition: 02 Transfer Acute Care Hosp Condition: Stable Diet: Regular (Full Liquid) No Smoking: If you smoke, Please STOP! Call for help. Follow-up with: Michael House MD [Primary Care Provider] -
--- NOTE | 2021-01-02 17:05 | DISCHARGE SUMMARY ---
"Discharge Summary Admit Date: 01/01/21 Discharge Date: 01/02/21 Discharging Provider: Nathan Eaton MD Primary Care Provider: Michael El Condition at Discharge: Stable Discharge Disposition: 02 Transfer Acute Care Hosp - DIAGNOSES Admission Diagnoses: Dysphagia Odynophagia Weight loss Discharge Diagnoses with Status of Each Condition: Esophageal massnewly diagnosed, guarded Acute blood loss anemiastable, somewhat worsened Weight lossstable Diet aphasia stable, unchanged Dysphagiaunchanged - HPI History of Present Illness: Patient is a 70-year-old male with medical history significant for insomnia only who presented to the ED today with complaint of difficulty and pain with swallowing. His symptoms have been going on for a couple of weeks. He normally resides in [facility] 8 months of the year and just returned yesterday. He reports chest pain with deep inspiration and a feeling like he has/needs to burp. 2 days ago he was able to tolerate ice cream. He can handle scrambled eggs however he has significant problems with foods like bread. With liquids like water he has to be sitting straight upright to be able to drink and after a period of time he still experiences dysphagia despite the caution. He also describes an incident 2 nights ago while he was eating he suddenly felt like everything was stuck in his throat. He went to the bathroom and simply leaned over and everything came back up. He denies nausea, vomiting, fever or chills. He reports mild abdominal pain. He has lost 40 pounds in the past 6 months but reports it was intentional. He is being admitted for further work-up to include an EGD. - CONSULTS | PROCEDURES Consultations: Dr George Euceda Procedures: EGD: 70-year-old male who presents with anemia as well as dysphagia, dyspepsia, who was recommended for upper endoscopy per my partner covering call. He is status post below that listed procedures: 1. On entering the esophagus immediately appreciated was a large necrotic distal esophageal/gastroesophageal mass with friability and associated oozing 2. There were variceal-like prominences within the gastric cardia extending from the esophagus which were difficult to delineate from the associated necrosis from the gastroesophageal junctional mass 3. Duodenum normal. No evidence of of duodenitis. Cold forcep biopsy obtained. Hemostatic. 4. Antrum without any antritis. Biopsies obtained cold forceps. Hemostatic. Patent pylorus. 5. Retroflexion was notable for the above listed areas including the necrotic gastroesophageal junctional mass and cardial prominence is consistent with varices. 6. Necrotic tumor biopsied Gastroesophageal junction circumferential.. This was performed cautiously to assure no issues as it relates to bleeding. Plan would be as follows: 1. Transfer to a higher level of care with the ability to address endoscopic hemostasis. 2. Imaging to include staging work-up for what is likely a forgot gastroesophageal malignancy 3. Facility with oncologic resources including radiation amongst others including advance interventional gastroenterology 4. Serial H&H's, transfuse as necessary. 5. Bowel rest - Dr George Euceda - HOSPITAL COURSE Hospital Course: After admission, the patient was hemodynamically stable and was able to tolerate clear liquids. His diet was not advanced due to concern for aspiration and obstruction. He was also painful to swallow. The following day after admission, on 01/01/2021, patient underwent EGD by Dr. George Euceda. This found a bleeding gastric mass in the distal gastroesophageal junction with necrotic features, suggestive of possible malignancy. Biopsies were taken with results pending at the time of discharge. Patient remained relatively stable, with minor discomfort and symptoms however his hemoglobin and hematocrit did slowly trend downward throughout the hospital stay.Hemoglobin level on admission was 8.6, hematocrit 26.4, morning on the day of discharge was 7.8/24.2. After discussion with surgeon performing EGD, Dr. Euceda it was decided that the patient would benefit from transfer to a facility with a higher level of care to have advanced endoscopy capabilities, palliative radiation, and possibly thoracic surgery consultation for resection of this mass. The team at [facility] in [place] were contacted and were kind enough to accept the patient in transfer having spoken with Dr. Pillo Francis and Dr. Odell Goins, thoracic surgeon and hospitalist respectively. - ALLERGIES Allergies/Adverse Reactions: Allergies Allergy/AdvReac Type Severity Reaction Status Date / Time Tetanus Vaccines and Toxoid Allergy Unknown Verified 12/31/20 15:04 - MEDICATIONS Home Medications: Ambulatory Orders Medication Instructions Recorded Confirmed Citalopram [CeleXA] 10 mg PO DAILY 01/01/21 01/01/21 HYDROcodone/ACET 10/325 [[place] 10 1 tab PO BID PRN 01/01/21 01/01/21 mg/325 mg] Lisinopril [Zestril] 20 mg PO DAILY 01/01/21 01/01/21 Zolpidem Tartrate [Ambien] 10 mg PO QPM PRN 01/01/21 01/01/21 - PHYSICAL EXAM AT DISCHARGE General Appearance: positive: No acute distress Eyes Bilateral: positive: Normal inspection ENT: positive: ENT inspection nml Neck: positive: Nml inspection Cardiovascular: positive: Regular rate & rhythm Peripheral Pulses: positive: 2+ Abdomen: positive: Tenderness (Mild to moderate epigastric tenderness) Skin: positive: Color nml Extremities: positive: Non-tender, Full ROM, Nml appearance Neurologic/Psychiatric: positive: Oriented x3 - LABS Result Diagrams: 01/02/21 05:20 01/02/21 05:20 - DIAGNOSTIC IMAGING Diagnostic Imaging Results: Final report reviewed"
[2021-01-02 17:19] LABS: HGB - HEMOGLOBIN 8.1 g/dL (14.0-18.0)
--- NOTE | 2021-01-02 18:14 | HISTORY & PHYSICAL EXAMINATION ---
History and Physical - History and Physical THIS IS A PROGRESS NOTE: POD #1 s/p EGD yesterday. 70-year-old male who presents with anemia as well as dysphagia, dyspepsia. Pathology has called with concern for malignancy. He is status post below below listed procedures: 1. On entering the esophagus immediately appreciated was a large necrotic distal esophageal/gastroesophageal mass with friability and associated oozing 2. There were variceal-like prominences within the gastric cardia extending from the esophagus which were difficult to delineate from the associated necrosis from the gastroesophageal junctional mass 3. Duodenum normal. No evidence of of duodenitis. Cold forcep biopsy obtaine d. Hemostatic. 4. Antrum without any antritis. Biopsies obtained cold forceps. Hemostatic. Patent pylorus. 5. Retroflexion was notable for the above listed areas including the necrotic gastroesophageal junctional mass and cardial prominence is consistent with varices. 6. Necrotic tumor biopsied Gastroesophageal junction circumferential.. This was performed cautiously to assure no issues as it relates to bleeding. 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 Severe dysphagia, with acute blood loss anemia. Discussed with thoracic surgery at [facility] in recommending transfer and possible edoscopic ablation versus inpatient external beam radiation. Will also need a jejunostomy tube as well. Multiple specialities absent here and patient is not appropriate for outpatient followup given the acuity and severity of his presentation. Discussed with hospitalist service as well. Plan would be as follows: 1. Transfer to a higher level of care with the ability to address endoscopic hemostasis. 2. Imaging to include staging work-up for what is likely a forgot gastroesophageal malignancy 3. Facility with oncologic resources including radiation amongst others including advance interventional gastroenterology 4. Serial H&H's, transfuse as necessary. 5. Bowel rest Please note that voice recognition software was used to transcribe this note and inadvertent errors might persist in spite of review and editing. I am obliged to you for your attention. I am thankful to you for allowing me to participate with you in this care of this patient.
[2021-01-02] MEDS: ZOLPIDEM 5 MG TABLET PO PRN (22:08)
[2021-01-03 00:03] VITALS: BP 133/74
[2021-01-03] MEDS: SODIUM CHLORIDE FLUSH 0.9% 10 ML SYRINGE IVP SCH (00:27)
== END 2021-01-03 00:40 | disposition short-term general hospital (02) | DRG 374 ==
LOC: ED 14:36 → MS2 16:43 → OBSVTOIN 01-01 16:04
PROVIDERS: ADMIT Internal Medicine; ATTEND Family Medicine Sports Medicine
PROC: 0DB78ZX Excision of Stomach, Pylorus, Via Natural or Artificial Opening Endoscopic, Diagnostic (ICD-10-PCS; 2021-01-01)
PROC: 0DB48ZX Excision of Esophagogastric Junction, Via Natural or Artificial Opening Endoscopic, Diagnostic (ICD-10-PCS; 2021-01-01)
PROC: 0DB98ZX Excision of Duodenum, Via Natural or Artificial Opening Endoscopic, Diagnostic (ICD-10-PCS; principal; 2021-01-01 12:30)
DX: C16.0 Malignant neoplasm of cardia (principal); I85.01 Esophageal varices with bleeding; D64.9 Anemia, unspecified; G47.00 Insomnia, unspecified; Z20.822 Contact with and (suspected) exposure to COVID-19; D62 Acute posthemorrhagic anemia; R13.10 Dysphagia, unspecified; R63.4 Abnormal weight loss; Z68.23 Body mass index [BMI] 23.0-23.9, adult; Z79.899 Other long term (current) drug therapy; Z89.511 Acquired absence of right leg below knee
CPT/HCPCS: 36415; 43239; 71045; 80048; 80053; 82607; 82746; 83540; 83690; 84466; 84484; 85014; 85018; 85025; 85027; 87631; 93005; 96365; 96366; 99284; 99285; A9270; G0378; 0202U

== ENCOUNTER 2021-01-03 00:42 | Outpatient (CLI) | payer MEDICARE, OTHER | END 2021-01-03 00:43 | disposition short-term general hospital (02) | LOC: EMS 00:42 | PROVIDERS: ATTEND Internal Medicine | DX: K22.8 Other specified diseases of esophagus (principal) | CPT/HCPCS: A0425; A0426 ==

== ENCOUNTER 2021-01-15 22:09 | Outpatient (CLI) | payer MEDICARE, OTHER | END 2021-01-15 22:10 | disposition critical access hospital (66) | LOC: EMS 22:09 | DX: G89.18 Other acute postprocedural pain (principal); R50.9 Fever, unspecified; R11.2 Nausea with vomiting, unspecified; Z93.1 Gastrostomy status | CPT/HCPCS: A0425; A0427 ==

== ENCOUNTER 2021-01-15 22:29 | Inpatient (IN) | payer MEDICARE, OTHER ==
[2021-01-15] MEDS ORDERED: ACETAMINOPHEN 325 MG TABLET PO STA (23:20)
[2021-01-15 23:58] LABS: BASOPHILS % (AUTO) 0.1 %; EOSINOPHILS # (AUTO) 0.1 10^3/uL (0.0-0.7); EOSINOPHILS % (AUTO) 0.8 %; LYMPHOCYTES # (AUTO) 1.6 10^3/uL (1.5-3.5); LYMPHOCYTES % (AUTO) 11.3 %; MEAN CORPUSCULAR HEMOGLOBIN 26.6 pg (27.0-31.0); MEAN CORPUSCULAR VOLUME 88.7 fL (80.0-94.0); MEAN PLATELET VOLUME 8.7 fL (7.4-11.4); MONOCYTES # (AUTO) 1.1 10^3/uL (0.0-1.0); MONOCYTES % (AUTO) 7.9 %; NEUTROPHILS % (AUTO) 78.8 %; NRBC ABSOLUTE COUNT (AUTO) 0.02 x10^3/uL; NUCLEATED RED BLOOD CELLS AUTO 0.1 /100WBC; PLT - PLATELET COUNT 361 10^3/uL (130-450); RED BLOOD COUNT 1.24 10^6/uL (4.70-6.10); RED CELL DISTRIBUTION WIDTH 14.7 % (12.0-15.0)
[2021-01-16 00:03] LABS: HGB - HEMOGLOBIN 3.3 g/dL (14.0-18.0)
[2021-01-16 00:07] LABS: LACTIC ACID, VENOUS 2.2 mmol/L (0.5-2.2)
[2021-01-16 00:08] LABS: ALBUMIN 2.7 g/dL (3.2-5.5); BILIRUBIN,TOTAL 0.4 mg/dL (0.2-1.0); CALCIUM 7.3 mg/dL (8.5-10.3); CREATININE 0.8 mg/dL (0.6-1.2); POTASSIUM 4.2 mmol/L (3.5-5.0); TOTAL PROTEIN 5.5 g/dL (6.7-8.2)
[2021-01-16] MEDS ORDERED: IOVERSOL 320 100 ML VIAL IVP ONE ×2 (01:16→02:51)
[2021-01-16] MEDS ORDERED: MORPHINE 2 MG/ML CARPUJECT IVP STA ×2 (01:20→03:50)
[2021-01-16 01:40] LABS: BILIRUBIN,URINE NEGATIVE (NEGATIVE); CLARITY,URINE CLEAR (CLEAR); GLUCOSE, URINE (UA) NEGATIVE (NEGATIVE); KETONES,URINE (UA) NEGATIVE (NEGATIVE); LEUKOCYTE ESTERASE, URINE NEGATIVE (NEGATIVE); NITRITE,URINE NEGATIVE (NEGATIVE); OCCULT BLOOD,URINE NEGATIVE (NEGATIVE); PH,URINE 5.5 PH (5.0-7.5); PROTEIN,URINE NEGATIVE (NEGATIVE); UROBILINOGEN,URINE 0.2 (NORMAL) E.U./dL (NORMAL)
[2021-01-16 01:43] LABS: BACTERIA,URINE None Seen /HPF (None Seen); RBC,URINE None Seen /HPF (0-5); SQUAMOUS EPITHELIAL CELL,UR NONE SEEN (<= Few); WBC,URINE 0-3 /HPF (0-3)
[2021-01-16] MEDS ORDERED: PIPERACILLIN/TAZOBACTAM 3.375 GM in SODIUM CHLORIDE 0.9% MINIBAG 100 ML IV STA (02:47)
[2021-01-16 03:45] LABS: LACTIC ACID, VENOUS 2.3 mmol/L (0.5-2.2)
[2021-01-16] MEDS ORDERED: HYDROmorphone 0.5 MG/0.5 ML SYRINGE IVP PRN (04:24)
[2021-01-16] MEDS ORDERED: ONDANSETRON 4 MG/2 ML VIAL IVP PRN (04:24)
--- NOTE | 2021-01-16 04:37 | HISTORY & PHYSICAL EXAMINATION ---
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 He and his returned from [place] several weeks ago and for 1 month he had noticed difficulty swallowing, food would regurgitate up and he had trouble swallowing even saliva. He was admitted here with that complaint and anemia several weeks ago. EGD was done here that showed a necrotic bleeding gastric ulcer that was obstructing the GI tract, esophageal varices, and he required transfer to higher level of care. The patient reports that he was told it is a cancer but the type is not known yet. Apparently it is not amenable to surgery but radiation and chemo are still being considered. Patient had a jejunostomy tube placed and puts liquefied feeds into that. Today the patient developed rigors and a fever and mild generalized abdominal pain and came to the ER. He has been found to have a hemoglobin of 3, heme positive black stool and was febrile, lactic acid level elevated at 2.3, and he was tachycardic. Chest x-ray is unremarkable, urinalysis unremarkable and the abdominal imaging shows a probable ileus. The presumed source of sepsis is GI, because of the recent manipulation and due to his necrotic and invading gastric malignancy. The patient is being admitted to the Hospitalist service for IV fluids, IV antibiotics, blood transfusions. History - Past Medical History Cardiovascular: reports: None Respiratory: reports: None Neuro: reports: None Endocrine/Autoimmune: reports: None GI: reports: Other : reports: None Musculoskeletal: reports: None, Other Derm: reports: None MRSA Hx?: No Other Past Medical History: Stomach cancer - Past Surgical History Ortho: reports: Other (Has a R leg prosthesis and stimulation unit) - Family & Social History Family History: Mother: , Father: Family History Comment/Other: He denies any significant family history. Living arrangement: At home Living Situation: With spouse/s.o. Social History Notes: He lives with his . 8 months out of 12 in [place] and 4 months on [facility]. He is independent of activities of daily living. He does not use tobacco products, use alcohol or recreational substances. - Substance History Use: Uses substance without health or social issues: NONE - POLST Patient has POLST: No POLST Status: Full Code Meds/Allgy - Home Medications Home Medications: Ambulatory Orders Medication Instructions Recorded Confirmed Citalopram [CeleXA] 10 mg PO DAILY 01/01/21 01/01/21 HYDROcodone/ACET 10/325 [[place] 10 1 tab PO BID PRN 01/01/21 01/01/21 mg/325 mg] Lisinopril [Zestril] 20 mg PO DAILY 01/01/21 01/01/21 Zolpidem Tartrate [Ambien] 10 mg PO QPM PRN 01/01/21 01/01/21 - Allergies Allergies/Adverse Reactions: Allergies Allergy/AdvReac Type Severity Reaction Status Date / Time Tetanus Vaccines and Toxoid Allergy Unknown Verified 12/31/20 15:04 Review of Systems - Constitutional Constitutional: reports: Weakness - Ears, Nose & Throat Ears, Nose & Throat: reports: Other (Feels like mouth is very dry) - Gastrointestinal Gastrointestinal: reports: Abdominal pain, Abdominal distention, Black stools, Other (He still has trouble handling saliva, he was told to moisten his mouth and expectorate any fluid.) - Musculoskeletal Musculoskeletal: reports: Other (The right BKA leg occasionally has jerking movements which he used to treat with oxycodone and stretching out.) - Neurological Neurological: reports: Other (Insomnia) - Hematologic/Lymphatic Hematologic/Lymphatic: reports: Anemia - All Other Systems All Other Systems: reports: Reviewed and negative Exam - Vital Signs Vital Signs: Vital Signs x48h Temp Pulse Pulse Resp BP BP Pulse Ox 01/16/21 04:02 37.3 C 99 19 119/61 01/16/21 04:00 37.3 C 99 19 119/61 96 01/16/21 03:30 36.5 C 99 19 123/64 99 01/16/21 03:19 36.8 C 98 19 115/59 L 01/16/21 03:18 36.8 C 98 19 115/59 L 01/16/21 03:09 36.4 C L 96 19 121/58 L 96 01/16/21 03:05 101 H 18 121/58 L 01/16/21 03:00 100 18 121/58 L 96 01/16/21 02:57 36.4 C L 99 18 117/59 L 01/16/21 02:38 98 18 121/58 L 98 01/16/21 02:03 96 16 113/59 L 94 01/16/21 01:30 98 19 119/55 L 95 01/16/21 01:22 101 H 14 118/57 L 98 01/15/21 22:43 38.3 C H 111 H 13 115/55 L 95 01/15/21 22:38 38.3 C H 111 H 13 115/55 L 95 - Physical Exam General Appearance: positive: Alert, Other (Extremely pale /ashen, appears fatigued) Eyes Bilateral: positive: Normal inspection, Other (Temporal wasting) ENT: positive: Dry mucous membranes Neck: positive: Nml inspection, No JVD Respiratory: positive: No respiratory distress, Breath sounds nml Cardiovascular: positive: Regular rate & rhythm, No murmur Abdomen: positive: Other (Distended, soft, no guarding or rebound, left midabdomen J-tube site appears clean) Skin: positive: Dry, Pallor Extremities: positive: Other (R BKA, L appears normal) Neurologic/Psychiatric: positive: Oriented x3 (Non-focal) Sepsis Event Note (H) - Sepsis Criteria Sepsis Criteria: Recorded Temperature greater than 38.3C or Less than 36C, Recorded Heart Rate greater than 90 bpm, WBC count greater than 12,000 or less than 4000, Metabolic: lactate > 2 mmol/L Conclusion/Plan - Problem List (1) Sepsis Conclusion/Plan: Will begin IV fluids. He already received a bolus in the ED which helped his tachycardia. Await blood cx results. We will begin empiric antibiotics for presumed source being gastrointestinal. We will begin iv Zosyn, and would also plan to use iv Flagyl for anaerobic coverage, but the hospital has no Flagyl supply currently. Follow WBC daily For fevers, Ofirmev IV will be ordered. (2) Profound anemia Conclusion/Plan: Follow H/H every 12 hours. Order blood transfusions (3) Anemia due to GI blood loss Conclusion/Plan: Will follow H/H every 12 hours. Transfuse to get closer to a hemoglobin of 7 however if this is a continuously bleeding tumor, there may be no good outcome unless there is a plan to handle the area that is bleeding (4) Gastric cancer Conclusion/Plan: His gastric cancer was at thr distal esophagus, was obstructive, necrotic and bleeding and probably causing back pressure and he had esophageal varices noted on EGD done here. The pathology report is adenocarcinoma. He admits to having black bowel movements and today guaiac testing in the ED was positive. Will request records from the recent hospitalization at [facility] to determine what was done and the upcoming plan. He was told to only rinse his mouth and spit it out, even sometimes his saliva. His diet therefore will be strict n.p.o., but he can swish and spit (5) Jejunostomy tube present Conclusion/Plan: This was implanted when he was at [facility]. We will request records from that hospitalization. Continue with J-tube feeds, will ask for assistance from a dietary consult. (6) Thrombocytopenia Conclusion/Plan: Follow CBC daily. Because of his GI bleed and this platelet count, no anticoagulants for DVT prophylaxis or aspirin can be used. (7) Hx of right BKA Conclusion/Plan: The right leg is twitching when he is uncomfortable. He wants to stretch out. In the past he used oxycodone for this. We will order IV narcotics as needed - Lab Results Fish Bones: 01/15/21 23:45 01/15/21 23:45
[2021-01-16] MEDS ORDERED: ACETAMINOPHEN 1,000 MG/100 ML 100 ML IV PRN (04:49)
[2021-01-16] MEDS ORDERED: HYDROmorphone 1 MG/ML CARPUJECT IVP STA (04:59)
[2021-01-16] MEDS ORDERED: D5.45NS W/20 MEQ KCL 1,000 ML IV SCH (05:00)
[2021-01-16 05:06] LABS: B. PARAPERTUSSIS- RESP PCR PAN NOT DETECTED; B. PERTUSSIS- RESP PCR PANEL NOT DETECTED; C. PNEUMONIAE- RESP PCR PANEL NOT DETECTED; CORONAVIRUS 229E-RESP PCR NOT DETECTED; CORONAVIRUS HKU1-RESP PCR NOT DETECTED; CORONAVIRUS NL63-RESP PCR NOT DETECTED; CORONAVIRUS OC43-RESP PCR NOT DETECTED; HUMAN METAPNEUMOVIRUS NOT DETECTED; INFLUENZA A- RESP PCR PANEL NOT DETECTED; INFLUENZA B - RESP PCR PANEL NOT DETECTED; M. PNEUMONIAE- RESP PCR PANEL NOT DETECTED; PARAINFLUENZA VIRUS 1 NOT DETECTED; PARAINFLUENZA VIRUS 2 NOT DETECTED; PARAINFLUENZA VIRUS 3 NOT DETECTED; PARAINFLUENZA VIRUS 4 NOT DETECTED; RHINOVIRUS/ENTEROVIRUS NOT DETECTED; RSV- RESP PCR PANEL NOT DETECTED; SARS-CoV-2 -RESP PCR PANEL NOT DETECTED
[2021-01-16 06:49] LABS: BASOPHILS % (AUTO) 0.3 %; EOSINOPHILS # (AUTO) 0.1 10^3/uL (0.0-0.7); EOSINOPHILS % (AUTO) 0.5 %; LYMPHOCYTES # (AUTO) 1.7 10^3/uL (1.5-3.5); LYMPHOCYTES % (AUTO) 11.6 %; MEAN CORPUSCULAR HEMOGLOBIN 28.1 pg (27.0-31.0); MEAN CORPUSCULAR HGB CONC 32.3 g/dL (32.0-36.0); MEAN CORPUSCULAR VOLUME 86.9 fL (80.0-94.0); MEAN PLATELET VOLUME 8.9 fL (7.4-11.4); MONOCYTES # (AUTO) 1.3 10^3/uL (0.0-1.0); MONOCYTES % (AUTO) 8.8 %; NEUTROPHILS # (AUTO) 11.2 10^3/uL (1.5-6.6); NEUTROPHILS % (AUTO) 77.7 %; NRBC ABSOLUTE COUNT (AUTO) 0.02 x10^3/uL; NUCLEATED RED BLOOD CELLS AUTO 0.1 /100WBC; PLT - PLATELET COUNT 369 10^3/uL (130-450); RED BLOOD COUNT 1.53 10^6/uL (4.70-6.10); RED CELL DISTRIBUTION WIDTH 14.3 % (12.0-15.0); WHITE BLOOD COUNT 14.5 x10^3/uL (4.8-10.8)
[2021-01-16] MEDS: SODIUM CHLORIDE FLUSH 0.9% 10 ML SYRINGE IVP PRN (06:49)
[2021-01-16] MEDS: PIPERACILLIN/TAZOBACTAM 3.375 GM in SODIUM CHLORIDE 0.9% MINIBAG 100 ML IV SCH ×3 (06:50→21:37)
[2021-01-16 06:56] LABS: HCT - HEMATOCRIT 13.3 % (42.0-52.0); HGB - HEMOGLOBIN 4.3 g/dL (14.0-18.0)
[2021-01-16 06:57] LABS: SLIDE REVIEW? Indicated
[2021-01-16 07:01] LABS: CALCIUM 7.3 mg/dL (8.5-10.3); CREATININE 0.7 mg/dL (0.6-1.2); MAGNESIUM 2.3 mg/dL (1.7-2.8); POTASSIUM 4.1 mmol/L (3.5-5.0)
[2021-01-16 07:09] LABS: PLATELET ESTIMATE, MANUAL NORMAL (130-450,000) (NORMAL); PLATELET MORPHOLOGY NORMAL APPEARANCE (NORMAL); RBC MORPHOLOGY (MULTIPLE) 1+ MICROCYTOSIS (NORMAL); WBC MORPHOLOGY (MULTIPLE) NORMAL APPEARANCE (NORMAL)
[2021-01-16 07:11] LABS: LACTIC ACID, VENOUS 2.1 mmol/L (0.5-2.2)
--- NOTE | 2021-01-16 07:18 | ED Physician Documentation ---
PD HPI FEVER - Stated complaint Stated Complaint: SEPSIS - Chief complaint Chief Complaint: Fever - History obtained from History obtained from: Patient, Family, EMS - History of Present Illness Timing - onset: How many days ago (3) Timing details: Gradual onset, Waxing and waning Pain level now: 5 Associated symptoms: Chills, Dry cough, NVD Recently seen: Emergency Dept, Surgery, Transferred - Additional information Additional information: BIBA. Patient was admitted to [facility] 12/31 for anemia and few weeks of gradually progressive difficulty with PO intake, solids and liquids. He was found to have necrotic mass on upper endoscopy with biopsies that eventually returned positive for adenocarcinoma. He was transferred to [facility] where he had a J-tube placed. Patient says he was told the cancer was deemed inoperable and that he is to be reevaluated outpatient for consideration of chemotherapy and/or radiation. He says he was discharged 6 days ago. He presents at this time c/o nausea and vomiting x 3 days with low-grade fevers over past 3 days but tonight had 101.8 fever. Review of Systems Constitutional: reports: Fever, Chills, Fatigue Eyes: reports: Reviewed and negative Ears: reports: Reviewed and negative Nose: reports: Reviewed and negative Throat: reports: Reviewed and negative Cardiac: reports: Reviewed and negative Respiratory: reports: Cough. denies: Dyspnea GI: reports: Abdominal Pain, Nausea, Vomiting, Bloody / black stool (black stool) : denies: Dysuria, Frequency Skin: reports: Reviewed and negative Musculoskeletal: reports: Reviewed and negative Neurologic: reports: Generalized weakness. denies: Focal weakness, Numbness, Altered mental status PD PAST MEDICAL HISTORY - Past Medical History Past Medical History: Yes Cardiovascular: None Respiratory: None Neuro: None Endocrine/Autoimmune: None GI: Other : None Musculoskeletal: Other Derm: None Other Past Medical History: Stomach cancer - Past Surgical History Past Surgical History: No Ortho: Amputation, Other - Present Medications Home Medications: Ambulatory Orders Medication Instructions Recorded Confirmed Citalopram [CeleXA] 10 mg PO DAILY 01/01/21 01/01/21 HYDROcodone/ACET 10/325 [[place] 10 1 tab PO BID PRN 01/01/21 01/01/21 mg/325 mg] Lisinopril [Zestril] 20 mg PO DAILY 01/01/21 01/01/21 Zolpidem Tartrate [Ambien] 10 mg PO QPM PRN 01/01/21 01/01/21 - Allergies Allergies/Adverse Reactions: Allergies Allergy/AdvReac Type Severity Reaction Status Date / Time Tetanus Vaccines and Toxoid Allergy Unknown Verified 12/31/20 15:04 - Social History Does the pt smoke?: No Smoking Status: Never smoker Does the pt drink ETOH?: No Does the pt have substance abuse?: No - Immunizations Immunizations are current?: Yes - POLST Patient has POLST: No POLST Status: Full Code PD ED PE NORMAL - Vitals Vital signs reviewed: Yes - General General: Alert and oriented X 3, No acute distress, Well developed/nourished - HEENT HEENT: Other (tacky/pasty mucous membranes) - Cardiac Cardiac: No murmur - Respiratory Respiratory: No respiratory distress, Other (left base rhonchi) - Abdomen Abdomen: Soft, Non distended, Other (mild diffuse tenderness without rebound or guarding; j tube in place and site is c/d/i) - Derm Derm: Warm and dry, Other (pale conjunctiva, pale lips and intraoral mucous membranes) - Extremities Extremities: Other (right BKA (h/o crush injury leading to amputation)) PD ED PE EXPANDED - Cardiac Cardiac: Tachy, Regular Rhythm - Rectal Rectal: Heme Occult Pos - QC +, Normal Tone, Other (black stool on glove) Results - Vitals Vitals: Vital Signs - 24 hr 01/15/21 01/15/21 01/16/21 22:38 22:43 01:22 Temperature 38.3 C H 38.3 C H Heart Rate 111 H 111 H 101 H Heart Rate [ Monitoring electrodes] Respiratory 13 13 14 Rate Blood Pressure 115/55 L 115/55 L 118/57 L Blood Pressure [Left Brachial artery] O2 Saturation 95 95 98 01/16/21 01/16/21 01/16/21 01:30 02:03 02:38 Temperature Heart Rate 98 96 98 Heart Rate [ Monitoring electrodes] Respiratory 19 16 18 Rate Blood Pressure 119/55 L 113/59 L 121/58 L Blood Pressure [Left Brachial artery] O2 Saturation 95 94 98 01/16/21 01/16/21 01/16/21 02:57 03:00 03:05 Temperature 36.4 C L Heart Rate 99 100 101 H Heart Rate [ Monitoring electrodes] Respiratory 18 18 18 Rate Blood Pressure 117/59 L 121/58 L 121/58 L Blood Pressure [Left Brachial artery] O2 Saturation 96 01/16/21 01/16/21 01/16/21 03:09 03:18 03:19 Temperature 36.4 C L 36.8 C 36.8 C Heart Rate 98 98 Heart Rate [ 96 Monitoring electrodes] Respiratory 19 19 19 Rate Blood Pressure 115/59 L 115/59 L Blood Pressure 121/58 L [Left Brachial artery] O2 Saturation 96 01/16/21 01/16/21 01/16/21 03:30 04:00 04:02 Temperature 36.5 C 37.3 C 37.3 C Heart Rate 99 99 99 Heart Rate [ Monitoring electrodes] Respiratory 19 19 19 Rate Blood Pressure 123/64 119/61 119/61 Blood Pressure [Left Brachial artery] O2 Saturation 99 96 Oxygen O2 Source Room air - Labs Labs: Microbiology 01/16/21 01:00 Occult Blood - Final Stool Laboratory Tests 01/15/21 01/15/21 01/15/21 23:45 23:45 23:45 WBC 14.0 H RBC 1.24 L Hgb 3.3 L* Hct 11.0 L* MCV 88.7 MCH 26.6 L MCHC 30.0 L RDW 14.7 Plt Count 361 MPV 8.7 Neut # (Auto) 11.0 H Lymph # (Auto) 1.6 [place] # (Auto) 1.1 H Eos # (Auto) 0.1 Baso # (Auto) 0.0 Absolute Nucleated RBC 0.02 Nucleated RBC % 0.1 Sodium 134 L Potassium 4.2 Chloride 101 Carbon Dioxide 23 Anion Gap 10.0 BUN 25 H Creatinine 0.8 Estimated GFR (MDRD) 96 Glucose 117 H Lactic Acid 2.2 Calcium 7.3 L Total Bilirubin 0.4 AST 29 ALT 39 Alkaline Phosphatase 73 Total Protein 5.5 L Albumin 2.7 L Globulin 2.8 Albumin/Globulin Ratio 1.0 Urine Color Urine Clarity Urine pH Ur Specific Peggs Urine Protein Urine Glucose (UA) Urine Ketones Urine Occult Blood Urine Nitrite Urine Bilirubin Urine Urobilinogen Ur Leukocyte Esterase Urine RBC Urine WBC Ur Squamous Epith Cells Urine Bacteria Urine Culture Comments Nasal Adenovirus (PCR) Nasal B. parapertussis DNA (PCR) Nasal Coronavir 229E PCR Nasal Coronavir HKU1 PCR Nasal Coronavir NL63 PCR Nasal Coronavir OC43 PCR Nasal Enterovir/Rhinovir PCR Nasal Influenza B PCR Nasal Influenza A PCR Nasal Parainfluen 1 PCR Nasal Parainfluen 2 PCR Nasal Parainfluen 3 PCR Nasal Parainfluen 4 PCR Nasal RSV (PCR) Nasal B.pertussis DNA PCR Nasal C.pneumoniae (PCR) David Human Metapneumo PCR Nasal M.pneumoniae (PCR) Nasal SARS-CoV-2 (PCR) Blood Type Blood Type Recheck Antibody Screen Crossmatch IS Only 01/15/21 01/16/21 01/16/21 23:45 00:55 01:30 WBC RBC Hgb Hct MCV MCH MCHC RDW Plt Count MPV Neut # (Auto) Lymph # (Auto) [place] # (Auto) Eos # (Auto) Baso # (Auto) Absolute Nucleated RBC Nucleated RBC % Sodium Potassium Chloride Carbon Dioxide Anion Gap BUN Creatinine Estimated GFR (MDRD) Glucose Lactic Acid Calcium Total Bilirubin AST ALT Alkaline Phosphatase Total Protein Albumin Globulin Albumin/Globulin Ratio Urine Color YELLOW Urine Clarity CLEAR Urine pH 5.5 Ur Specific Peggs 1.015 Urine Protein NEGATIVE Urine Glucose (UA) NEGATIVE Urine Ketones NEGATIVE Urine Occult Blood NEGATIVE Urine Nitrite NEGATIVE Urine Bilirubin NEGATIVE Urine Urobilinogen 0.2 (NORMAL) Ur Leukocyte Esterase NEGATIVE Urine RBC None Seen Urine WBC 0-3 Ur Squamous Epith Cells NONE SEEN Urine Bacteria None Seen Urine Culture Comments NOT INDICATED Nasal Adenovirus (PCR) Nasal B. parapertussis DNA (PCR) Nasal Coronavir 229E PCR Nasal Coronavir HKU1 PCR Nasal Coronavir NL63 PCR Nasal Coronavir OC43 PCR Nasal Enterovir/Rhinovir PCR Nasal Influenza B PCR Nasal Influenza A PCR Nasal Parainfluen 1 PCR Nasal Parainfluen 2 PCR Nasal Parainfluen 3 PCR Nasal Parainfluen 4 PCR Nasal RSV (PCR) Nasal B.pertussis DNA PCR Nasal C.pneumoniae (PCR) David Human Metapneumo PCR Nasal M.pneumoniae (PCR) Nasal SARS-CoV-2 (PCR) Blood Type O POSITIVE Blood Type Recheck O POSITIVE Antibody Screen NEGATIVE Crossmatch IS Only See Detail 01/16/21 01/16/21 03:30 04:00 WBC RBC Hgb Hct MCV MCH MCHC RDW Plt Count MPV Neut # (Auto) Lymph # (Auto) [place] # (Auto) Eos # (Auto) Baso # (Auto) Absolute Nucleated RBC Nucleated RBC % Sodium Potassium Chloride Carbon Dioxide Anion Gap BUN Creatinine Estimated GFR (MDRD) Glucose Lactic Acid 2.3 H Calcium Total Bilirubin AST ALT Alkaline Phosphatase Total Protein Albumin Globulin Albumin/Globulin Ratio Urine Color Urine Clarity Urine pH Ur Specific Peggs Urine Protein Urine Glucose (UA) Urine Ketones Urine Occult Blood Urine Nitrite Urine Bilirubin Urine Urobilinogen Ur Leukocyte Esterase Urine RBC Urine WBC Ur Squamous Epith Cells Urine Bacteria Urine Culture Comments Nasal Adenovirus (PCR) NOT DETECTED Nasal B. parapertussis DNA (PCR) NOT DETECTED Nasal Coronavir 229E PCR NOT DETECTED Nasal Coronavir HKU1 PCR NOT DETECTED Nasal Coronavir NL63 PCR NOT DETECTED Nasal Coronavir OC43 PCR NOT DETECTED Nasal Enterovir/Rhinovir PCR NOT DETECTED Nasal Influenza B PCR NOT DETECTED Nasal Influenza A PCR NOT DETECTED Nasal Parainfluen 1 PCR NOT DETECTED Nasal Parainfluen 2 PCR NOT DETECTED Nasal Parainfluen 3 PCR NOT DETECTED Nasal Parainfluen 4 PCR NOT DETECTED Nasal RSV (PCR) NOT DETECTED Nasal B.pertussis DNA PCR NOT DETECTED Nasal C.pneumoniae (PCR) NOT DETECTED David Human Metapneumo PCR NOT DETECTED Nasal M.pneumoniae (PCR) NOT DETECTED Nasal SARS-CoV-2 (PCR) NOT DETECTED Blood Type Blood Type Recheck Antibody Screen Crossmatch IS Only - Rads (name of study) CT A/P with IV contrast Radiology: Prelim report reviewed, See rad report PD MEDICAL DECISION MAKING - ED course Complexity details: reviewed old records, reviewed results, re-evaluated patient, considered differential, d/w patient, d/w family ED course: febrile on arrival, bp remains stable during ED stay. Leukocytosis but normal lactate. He is profoundly anemic with hgb 3.3. Guaiac positive with black stool. He has very mild TTP on abdominal exam and without peritoneal findings. PRBC ordered and transfusion started in ED. No apparent source of infection on initial testing (unremarkable CXR, UA; CT A/P does not demonstrate infectious/inflammatory process). Case d/w Dr. Marcano; surgical intervention not indicated at this time, does not see benefit nor necessity to transfer at this time. D/W Dr. Melendez, accepts admission to [facility]. Departure - Departure Disposition: 66 [facility] DC/Xfer Clinical Impression: GI bleed Qualifiers: GI bleed type/associated pathology: unspecified gastrointestinal hemorrhage type Qualified Code(s): K92.2 - Gastrointestinal hemorrhage, unspecified Fever Qualifiers: Fever type: unspecified Qualified Code(s): R50.9 - Fever, unspecified Condition: Stable Discharge Date/Time: 01/16/21 05:30
--- NOTE | 2021-01-16 07:59 | XRAY Report ---
PROCEDURE: Chest 2 View X-Ray INDICATIONS: Fever, cough TECHNIQUE: 2 view(s) of the chest. COMPARISON: 12/31/2020 FINDINGS: Surgical changes and devices: None. Lungs and pleura: No pleural effusions or pneumothorax. Lungs are clear. Mediastinum: Mediastinal contours are normal. Heart size is normal. Bones and chest wall: No suspicious bony abnormalities. Soft tissues appear unremarkable. IMPRESSION: No acute cardiopulmonary process demonstrated radiographically. Reviewed by: Yandel Lozoya MD on 01/16/2021 7:58 AM PDT Approved by: Yandel Lozoya MD on 01/16/2021 7:58 AM PDT Station ID: [id number]
[2021-01-16] MEDS: PANTOPRAZOLE 40 MG VIAL IVP SCH ×2 (08:31→21:30)
[2021-01-16] MEDS: SODIUM CHLORIDE FLUSH 0.9% 10 ML SYRINGE IVP SCH ×2 (08:32→20:23)
--- NOTE | 2021-01-16 09:38 | CT Report ---
PROCEDURE: Abdomen/Pelvis W INDICATIONS: Fever, severe anemia CONTRAST: IV CONTRAST: Optiray 320 ml: 100 PO CONTRAST: *NO PO CONTRAST TECHNIQUE: After the administration of intravenous contrast, 5 mm thick sections acquired from the diaphragms to the symphysis. 5 mm thick coronal and sagittal reformats were acquired. For radiation dose reducti on, the following was used: automated exposure control, adjustment of mA and/or kV according to harley ent size. COMPARISON: None. FINDINGS: Image quality: Excellent. ABDOMEN: Lung bases: Lung bases are clear. Heart size is normal. Solid organs: There are 2 nonspecific hypodensities in the left hepatic lobe, one measuring 9 mm and the other measuring 1.3 cm. There is also a tiny hypodensity in the right hepatic dome measuring 5 mm which is likely a cyst. Mildly dilated intrahepatic biliary ducts. The gallbladder is distended with out obvious wall thickening or adjacent inflammatory change. Biliary system is non dilated. Pancrea s enhances normally. No adrenal nodules. Kidneys demonstrate normal size and enhancement, without h ydronephrosis. Peritoneum and bowel: There is abnormal fluid distention and questionable wall thickening of the stom ach. There is also fluid distention of the duodenum and proximal jejunum to the level of a the J-tube insertion site. Beyond the J-tube the bowel is decompressed. There is no small bowel wall thickening or inflammatory change surrounding the intestine. The appendix is normally distended without wall th ickening. Nodes and vessels: There is mild prominence but not threshold enlargement of several gastrohepatic li gament lymph nodes suspicious for jarrod metastatic disease in the setting of recent gastric cancer di agnosis. Aorta and inferior vena cava are normal in size. Miscellaneous: No ventral hernias. PELVIS: Genitourinary: Bladder wall thickness is normal. Miscellaneous: No inguinal hernias or adenopathy. Bones: No suspicious bony lesions. No vertebral body compression fractures. IMPRESSION: Abnormal fluid distention of the distal esophagus, stomach, and the duodenum with thickening of the s tomach. Distention and dilatation is present to the level of the J-tube insertion site. The on the J- tube insertion site the small bowel is decompressed. Findings are suggestive of an obstruction at the level of the J-tube insertion site. Gastric wall thickening is consistent with recent gastric cancer diagnosis. Gallbladder distention without findings of cholecystitis. Nonspecific hepatic hypodensities are worrisome for metastatic disease, although this is not definiti ve. Numerous prominent but not vessels enlarged gastrohepatic ligament lymph nodes are suspicious for nod al metastasis. No significant change from the preliminary report. Reviewed by: Yandel Lozoya MD on 01/16/2021 9:37 AM PDT Approved by: Yandel Lozoya MD on 01/16/2021 9:37 AM PDT Station ID: [id number]
[2021-01-16] MEDS ORDERED: MORPHINE 2 MG/ML CARPUJECT IVP PRN (12:18)
[2021-01-16] MEDS ORDERED: HYDROcod/ACETAM 10 MG/325 MG TABLET PO PRN (14:07)
[2021-01-16] MEDS: D5.45NS W/20 MEQ KCL 1,000 ML IV SCH ×2 (14:25→21:45)
[2021-01-16 17:00] LABS: HGB - HEMOGLOBIN 5.4 g/dL (14.0-18.0)
[2021-01-16 17:01] LABS: HCT - HEMATOCRIT 16.6 % (42.0-52.0)
[2021-01-16] MEDS: oxyCODONE 5 MG TABLET PO PRN (20:22)
[2021-01-16] MEDS: ZOLPIDEM 5 MG TABLET PO PRN (21:45)
[2021-01-17] MEDS: SODIUM CHLORIDE FLUSH 0.9% 10 ML SYRINGE IVP SCH ×3 (00:15→16:56)
[2021-01-17] MEDS: oxyCODONE 5 MG TABLET PO PRN ×5 (01:04→21:01)
[2021-01-17 05:12] LABS: BASOPHILS # (AUTO) 0.1 10^3/uL (0.0-0.1); BASOPHILS % (AUTO) 0.6 %; EOSINOPHILS # (AUTO) 0.2 10^3/uL (0.0-0.7); EOSINOPHILS % (AUTO) 2.6 %; HCT - HEMATOCRIT 21.2 % (42.0-52.0); LYMPHOCYTES # (AUTO) 1.3 10^3/uL (1.5-3.5); LYMPHOCYTES % (AUTO) 15.7 %; MEAN CORPUSCULAR HEMOGLOBIN 28.7 pg (27.0-31.0); MEAN CORPUSCULAR VOLUME 86.9 fL (80.0-94.0); MEAN PLATELET VOLUME 8.9 fL (7.4-11.4); MONOCYTES # (AUTO) 0.9 10^3/uL (0.0-1.0); MONOCYTES % (AUTO) 11.6 %; NEUTROPHILS # (AUTO) 5.5 10^3/uL (1.5-6.6); NEUTROPHILS % (AUTO) 67.9 %; NRBC ABSOLUTE COUNT (AUTO) 0.02 x10^3/uL; NUCLEATED RED BLOOD CELLS AUTO 0.2 /100WBC; PLT - PLATELET COUNT 296 10^3/uL (130-450); RED BLOOD COUNT 2.44 10^6/uL (4.70-6.10); RED CELL DISTRIBUTION WIDTH 15.9 % (12.0-15.0); WHITE BLOOD COUNT 8.1 x10^3/uL (4.8-10.8)
[2021-01-17 05:20] LABS: CALCIUM 7.5 mg/dL (8.5-10.3); CREATININE 0.6 mg/dL (0.6-1.2); MAGNESIUM 2.2 mg/dL (1.7-2.8); POTASSIUM 4.4 mmol/L (3.5-5.0)
[2021-01-17] MEDS: PIPERACILLIN/TAZOBACTAM 3.375 GM in SODIUM CHLORIDE 0.9% MINIBAG 100 ML IV SCH ×3 (05:29→21:02)
[2021-01-17] MEDS: D5.45NS W/20 MEQ KCL 1,000 ML IV SCH (05:30)
[2021-01-17] MEDS ORDERED: CITALOPRAM 10 MG TABLET PO SCH (09:00)
[2021-01-17] MEDS: PANTOPRAZOLE 40 MG VIAL IVP SCH ×2 (09:07→21:02)
[2021-01-17 13:58] LABS: HCT - HEMATOCRIT 24.4 % (42.0-52.0)
--- NOTE | 2021-01-17 14:39 | PROVIDER PROGRESS NOTE ---
Subjective - Prog Note Date Prog Note Date: 01/17/21 - Subjective Subjective: He reports doing well today. Denies any abdominal pain. Has been tolerating clear liquid diet without nausea or vomiting. Current Medications - Current Medications Current Medications: Active Medications Citalopram Hydrobromide (Citalopram 10 Mg Tablet) 10 mg PO DAILY [facility] Last Admin: 01/17/21 09:07 Dose: 10 mg Documented by: Piperacillin Sod/Tazobactam (Sod 3.375 gm/ Sodium Chloride) 100 mls @ 25 mls/hr IV Q8H [facility] Last Infusion: 01/17/21 10:04 Dose: Infused Documented by: Morphine Sulfate (Morphine 2 Mg/Ml Carpuject) 2 mg IVP Q2HR PRN PRN Reason: PAIN Last Admin: 01/16/21 12:39 Dose: 2 mg Documented by: Ondansetron HCl (Ondansetron 4 Mg/2 Ml Vial) 4 mg IVP Q6HR PRN PRN Reason: Nausea / Vomiting Oxycodone HCl (Oxycodone 5 Mg Tablet) 10 mg PO Q4HR PRN PRN Reason: PAIN Last Admin: 01/17/21 10:14 Dose: 10 mg Documented by: Pantoprazole Sodium (Pantoprazole 40 Mg Vial) 40 mg IVP BID [facility] Last Admin: 01/17/21 09:07 Dose: 40 mg Documented by: Sodium Chloride (Sodium Chloride Flush 0.9% 10 Ml Syringe) 10 ml IVP PRN PRN PRN Reason: NEEDED PER PROVIDER ORDERS Last Admin: 01/16/21 06:49 Dose: 10 ml Documented by: Sodium Chloride (Sodium Chloride Flush 0.9% 10 Ml Syringe) 10 ml IVP 0100,0900,1700 [facility] Last Admin: 01/17/21 09:07 Dose: 10 ml Documented by: Zolpidem Tartrate (Zolpidem 5 Mg Tablet) 10 mg PO QPM PRN PRN Reason: Insomnia Last Admin: 01/16/21 21:45 Dose: 10 mg Documented by: Citalopram [CeleXA] 10 mg PO DAILY 01/01/21 HYDROcodone/ACET 10/325 [[place] 10 mg/325 mg] 1 tab PO BID PRN 01/01/21 Lisinopril [Zestril] 20 mg PO DAILY 01/01/21 Zolpidem Tartrate [Ambien] 10 mg PO QPM PRN 01/01/21 Scopolamine Patch [Transderm-Scop] 1 each TOP Q3D 01/16/21 Objective - Vital Signs/Intake & Output Reviewed Vital Signs: Yes Vital Signs: Vital Signs x48h Temp Pulse Pulse Resp BP BP Pulse Ox 01/17/21 13:06 37.1 C 73 18 139/78 H 01/17/21 13:00 37.1 C 65 18 139/78 H 97 01/17/21 10:45 36.9 C 72 18 129/71 01/17/21 10:25 36.6 C 72 18 124/72 01/17/21 09:00 18 96 Intake & Output: Intake & Output 01/14/21 01/15/21 01/16/21 01/17/21 23:59 23:59 23:59 23:59 Intake Total 3333.750 2232.667 Output Total 1075 700 Balance 2258.750 1532.667 - Objective General Appearance: positive: No acute distress, Alert Eyes Bilateral: positive: Normal inspection ENT: positive: ENT inspection nml Neck: positive: Nml inspection Respiratory: positive: No respiratory distress. negative: Wheezes, Rales Cardiovascular: positive: Regular rate & rhythm, No murmur. negative: Tachycardia Abdomen: positive: Non-tender, No distention, Other (Jejunostomy in place.). negative: Tenderness Extremities: positive: No pedal edema, Other (Right BKA noted.) Neurologic/Psychiatric: negative: Disoriented to person, Disoriented to place - Lab Results Fish Bones: 01/17/21 13:51 01/17/21 04:30 Other Labs: Lab Results x24hrs 01/17/21 01/17/21 01/17/21 Range/Units 13:51 04:30 04:30 WBC 8.1 (4.8-10.8) x10^3/uL RBC 2.44 L (4.70-6.10) 10^6/uL Hgb 8.0 L 7.0 L* (14.0-18.0) g/dL Hct 24.4 L 21.2 L (42.0-52.0) % MCV 86.9 (80.0-94.0) fL MCH 28.7 (27.0-31.0) pg MCHC 33.0 (32.0-36.0) g/dL RDW 15.9 H (12.0-15.0) % Plt Count 296 (130-450) 10^3/uL MPV 8.9 (7.4-11.4) fL Neut # (Auto) 5.5 (1.5-6.6) 10^3/uL Lymph # (Auto) 1.3 L (1.5-3.5) 10^3/uL Vernon # (Auto) 0.9 (0.0-1.0) 10^3/uL Eos # (Auto) 0.2 (0.0-0.7) 10^3/uL Baso # (Auto) 0.1 (0.0-0.1) 10^3/uL Absolute Nucleated RBC 0.02 x10^3/uL Nucleated RBC % 0.2 /100WBC Sodium 136 (135-145) mmol/L Potassium 4.4 (3.5-5.0) mmol/L Chloride 105 (101-111) mmol/L Carbon Dioxide 24 (21-32) mmol/L Anion Gap 7.0 (6-13) BUN 16 (6-20) mg/dL Creatinine 0.6 (0.6-1.2) mg/dL Estimated GFR (MDRD) 134 (>89) Glucose 130 H (70-100) mg/dL Calcium 7.5 L (8.5-10.3) mg/dL Magnesium 2.2 (1.7-2.8) mg/dL Blood Type Antibody Screen Crossmatch IS Only 01/16/21 01/16/21 Range/Units 16:42 00:55 WBC (4.8-10.8) x10^3/uL RBC (4.70-6.10) 10^6/uL Hgb 5.4 L* (14.0-18.0) g/dL Hct 16.6 L* (42.0-52.0) % MCV (80.0-94.0) fL MCH (27.0-31.0) pg MCHC (32.0-36.0) g/dL RDW (12.0-15.0) % Plt Count (130-450) 10^3/uL MPV (7.4-11.4) fL Neut # (Auto) (1.5-6.6) 10^3/uL Lymph # (Auto) (1.5-3.5) 10^3/uL Vernon # (Auto) (0.0-1.0) 10^3/uL Eos # (Auto) (0.0-0.7) 10^3/uL Baso # (Auto) (0.0-0.1) 10^3/uL Absolute Nucleated RBC x10^3/uL Nucleated RBC % /100WBC Sodium (135-145) mmol/L Potassium (3.5-5.0) mmol/L Chloride (101-111) mmol/L Carbon Dioxide (21-32) mmol/L Anion Gap (6-13) BUN (6-20) mg/dL Creatinine (0.6-1.2) mg/dL Estimated GFR (MDRD) (>89) Glucose (70-100) mg/dL Calcium (8.5-10.3) mg/dL Magnesium (1.7-2.8) mg/dL Blood Type O POSITIVE Antibody Screen NEGATIVE Crossmatch IS Only See Detail ABX Reporting Has patient been on IV antibiotics over the past 48 hours?: Yes Sepsis Event Note (H) - Sepsis Criteria Sepsis Criteria: Recorded Temperature greater than 38.3C or Less than 36C, Recorded Heart Rate greater than 90 bpm, WBC count greater than 12,000 or less than 4000, Metabolic: lactate > 2 mmol/L Assessment/Plan - Problem List (1) Anemia due to GI blood loss Impression: He has slowly responded to transfusion. His hemoglobin is 7.0 this morning and this afternoon it has improved to 8.0 after 1 unit of packed red blood cell. There has been no obvious evidence of bleeding but his stool is positive for occult blood. This is likely secondary to the gastric cancer. He will keep him on Protonix IV. We will continue to monitor his hemoglobin every 8 hours and transfuse as needed. (2) Fever Impression: Afebrile since admission without any obvious source of infection. Chest x-ray and urinalysis unremarkable. Blood cultures are negative to date. He does remain on Zosyn IV. I do wonder if there could have been bacterial translocation and transient bacteremia causing his fever. We will keep him on Zosyn IV with today being day 2. If he remains afebrile with negative blood cultures then we will likely discontinue antibiotics tomorrow. Qualifiers: Fever type: unspecified Qualified Code(s): R50.9 - Fever, unspecified (3) Gastric cancer Impression: He unfortunately has known metastatic gastric cancer which is on operable. I did speak with Dr. Sanon today of oncology the patient is supposed to be seeing in 9 days. He did review the patient's chart and we discussed his presentation and concern for acute blood loss anemia secondary to the gastric cancer. Dr. Sanon does feel that the patient could benefit from palliative radiation and possibly interventional radiology for consideration of embolization. He feels transfer to high-level care would be warranted. I did speak with [facility] in [place] and although they have no beds at the moment, I did add the patient to the list. I also spoke to [facility] and they also have no beds at the moment but I also added the patient to the list there. We will look to transfer the patient once a bed is available. The patient and family were updated on this plan and are agreeable to it. (4) Jejunostomy tube present Impression: We will initiate trickle feeds today to ensure there is no evidence of obstruction.
[2021-01-17 15:13] LABS: INR 1.4 (0.8-1.2); PT - PROTHROMBIN TIME 15.6 secs (9.9-12.6)
[2021-01-17 20:12] LABS: HCT - HEMATOCRIT 24.4 % (42.0-52.0); HGB - HEMOGLOBIN 8.3 g/dL (14.0-18.0)
[2021-01-17] MEDS: SODIUM CHLORIDE FLUSH 0.9% 10 ML SYRINGE IVP PRN ×2 (21:02→22:54)
[2021-01-17] MEDS: ZOLPIDEM 5 MG TABLET PO PRN (22:04)
[2021-01-17] MEDS ORDERED: ZOLPIDEM 5 MG TABLET PO ONE (23:14)
[2021-01-18] MEDS: SODIUM CHLORIDE FLUSH 0.9% 10 ML SYRINGE IVP SCH (00:03)
[2021-01-18 04:14] VITALS: BP 119/74
--- NOTE | 2021-01-18 06:49 | Discharge Plan ---
Discharge Plan Problem Reviewed?: Yes Disposition: 02 Transfer Acute Care Hosp Condition: Stable No Smoking: If you smoke, Please STOP! Call for help. Follow-up with: Michael House MD [Primary Care Provider] -
--- NOTE | 2021-01-18 06:53 | DISCHARGE SUMMARY ---
"Discharge Summary Admit Date: 01/16/21 Discharge Date: 01/18/21 Discharging Provider: Praveena Cormier MD Condition at Discharge: Stable Discharge Disposition: 02 Transfer Acute Care Hosp - DIAGNOSES Discharge Diagnoses with Status of Each Condition: 1. Acute blood loss anemia due to GI blood loss 2. Gastric cancer 3. Sepsis 4. Jejunostomy tube present 5. 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 He and his returned from [place] several weeks ago and for 1 month he had noticed difficulty swallowing, food would regurgitate up and he had trouble swallowing even saliva. He was admitted here with that complaint and anemia several weeks ago. EGD was done here that showed a necrotic bleeding gastric ulcer that was obstructing the GI tract, es ophageal varices, and he required transfer to higher level of care. The patient reports that he was told it is a cancer but the type is not known yet. Apparently it is not amenable to surgery but radiation and chemo are still being considered. Patient had a jejunostomy tube placed and puts liquefied feeds into that. Today the patient developed rigors and a fever and mild generalized abdominal pain and came to the ER. He has been found to have a hemoglobin of 3, heme positive black stool and was febrile, lactic acid level elevated at 2.3, and he was tachycardic. Chest x-ray is unremarkable, urinalysis unremarkable and the abdominal imaging shows a probable ileus. The presumed source of sepsis is GI, because of the recent manipulation and due to his necrotic and invading gastric malignancy. The patient is being admitted to the Hospitalist service for IV fluids, IV antibiotics, blood transfusions. - Past Medical History Cardiovascular: reports: None Respiratory: reports: None Neuro: reports: None Endocrine/Autoimmune: reports: None GI: reports: Other : reports: None Musculoskeletal: reports: None, Other Derm: reports: None MRSA Hx?: No Other Past Medical History: Stomach cancer - Past Surgical History Ortho: reports: Other (Has a R leg prosthesis and stimulation unit) - CONSULTS | PROCEDURES Procedures: 1. Chest x-ray without acute cardiopulmonary process. 2. Abdomen pelvis CT with abdominal fluid distention of the distal esophagus, stomach, and the duodenum with thickening of the stomach. Distention and dilation is present to the level of the J-tube insertion site. On the J-tube insertion site the small bowel is decompressed. Findings are suggestive of obstruction at the level of the J-tube insertion site. Gastric wall thickening consistent with recent gastric cancer diagnosis. Gallbladder distention without findings of cholecystitis. Nonspecific hepatic hypodensities worrisome for metastatic disease. Prominent but not enlarged gastrohepatic ligament lymph nodes suspicious for jarrod metastasis. 3. Transfusion of 6 units of packed red cells 4. Blood cultures negative after 2 days - HOSPITAL COURSE Hospital Course: The patient was placed on MedSurg and started on empiric antibiotics because of the high fevers, white cell count. He was transfused 6 units of blood to maintain his hemoglobin. On admission he started out at 3.3. By discharge he was 8.3. Platelets remained stable and at discharge were 296. White cell count was now normal on the day of discharge. He presented at a white cell count 14,000 and he was now 8.1 thousand. Blood cultures were negative for growth. Fecal occult blood stool test was negative. Although stool was black and tarry at times. Due to the complicated nature of the gastric mass, we did query oncology from the [facility] who comes to the [place] to consult on oupatient oncology patients. This patient was going to need relatively urgent radiation therapy to control the size of this mass as well as hopefully control bleeding. As such we reached out to [facility] who accepted this patient in transfer. At discharge temperature was 36.9. Pulse 81. Blood pressure 119/74. Respirations 18. 96% on room air. He was denying abdominal pain and tolerating a clear liquid diet without nausea or vomiting. He did not have any respiratory distress, did not have any wheezing or rales. He had a regular rate and rhythm without a murmur. The abdomen had a jejunostomy tube in place, but was nontender, hypoactive bowel sounds. The right BKA is noted, with skin closed/healed. He is oriented to person and place. He is transferred in stable condition, greater than 30 minutes was spent fulfillment coordinator rdinating discharge. - ALLERGIES Allergies/Adverse Reactions: Allergies Allergy/AdvReac Type Severity Reaction Status Date / Time Tetanus Vaccines and Toxoid Allergy Unknown Verified 12/31/20 15:04 - MEDICATIONS Home Medications: Ambulatory Orders Medication Instructions Recorded Confirmed Citalopram [CeleXA] 10 mg PO DAILY 01/01/21 01/16/21 HYDROcodone/ACET 10/325 [[place] 10 1 tab PO BID PRN 01/01/21 01/16/21 mg/325 mg] Lisinopril [Zestril] 20 mg PO DAILY 01/01/21 01/01/21 Zolpidem Tartrate [Ambien] 10 mg PO QPM PRN 01/01/21 01/16/21 Scopolamine Patch [Transderm-Scop] 1 each TOP Q3D 01/16/21 01/16/21 - LABS Result Diagrams: 01/17/21 20:06 01/17/21 04:30 - SEPSIS Sepsis Criteria: Recorded Temperature greater than 38.3C or Less than 36C, Recorded Heart Rate greater than 90 bpm, WBC count greater than 12,000 or less than 4000, Metabolic: lactate > 2 mmol/L"
== END 2021-01-18 04:30 | disposition short-term general hospital (02) | DRG 872 ==
LOC: EDUNIT# → SUPCPDRO 22:29 → ED 22:29 → MS3 01-16 04:24
PROVIDERS: ADMIT Internal Medicine; ATTEND Specialist
PROC: 30233N1 Transfusion of Nonautologous Red Blood Cells into Peripheral Vein, Percutaneous Approach (ICD-10-PCS; principal; 2021-01-16)
DX: A41.9 Sepsis, unspecified organism (principal); R50.9 Fever, unspecified; K92.2 Gastrointestinal hemorrhage, unspecified; Z20.822 Contact with and (suspected) exposure to COVID-19; C16.9 Malignant neoplasm of stomach, unspecified; D64.9 Anemia, unspecified; D62 Acute posthemorrhagic anemia; Z89.511 Acquired absence of right leg below knee; Z87.11 Personal history of peptic ulcer disease; Z93.4 Other artificial openings of gastrointestinal tract status; D69.6 Thrombocytopenia, unspecified; R16.0 Hepatomegaly, not elsewhere classified
CPT/HCPCS: 36415; 36430; 71046; 74177; 80048; 80053; 81001; 82272; 83605; 83735; 85014; 85018; 85025; 85610; 86850; 86900; 86901; 86920; 87040; 87631; 96365; 96375; 96376; 99284; 99285; A9270; J1170; P9016; Q9967; 0202U; 84100; 84134; 87086

== ENCOUNTER 2021-01-18 04:30 | Outpatient (CLI) | payer MEDICARE, OTHER | END 2021-01-18 04:31 | disposition short-term general hospital (02) | LOC: EMS 04:30 | PROVIDERS: ATTEND Specialist | DX: K92.2 Gastrointestinal hemorrhage, unspecified (principal); R19.09 Other intra-abdominal and pelvic swelling, mass and lump; R50.9 Fever, unspecified; Z74.01 Bed confinement status | CPT/HCPCS: A0425; A0428 ==

== ENCOUNTER 2021-02-22 05:21 | Outpatient (CLI) | payer MEDICARE, OTHER | END 2021-02-22 05:22 | disposition critical access hospital (66) | LOC: EMS 05:21 | DX: T85.528A Displacement of other gastrointestinal prosthetic devices, implants and grafts, initial encounter (principal); R55 Syncope and collapse | CPT/HCPCS: A0425; A0429 ==

== ENCOUNTER 2021-02-22 05:40 | Inpatient (IN) | payer MEDICARE, OTHER ==
[2021-02-22] MEDS ORDERED: ONDANSETRON 4 MG/2 ML VIAL IVP STA ×2 (06:14→08:28)
[2021-02-22] MEDS ORDERED: SODIUM CHLORIDE 0.9% 1,000 ML IV STA ×3 (06:14→08:27)
[2021-02-22 06:32] LABS: BASOPHILS % (AUTO) 0.4 %; EOSINOPHILS % (AUTO) 0.4 %; HCT - HEMATOCRIT 27.8 % (42.0-52.0); HGB - HEMOGLOBIN 8.3 g/dL (14.0-18.0); LYMPHOCYTES % (AUTO) 14.4 %; MEAN CORPUSCULAR HEMOGLOBIN 24.5 pg (27.0-31.0); MEAN CORPUSCULAR HGB CONC 29.9 g/dL (32.0-36.0); MEAN PLATELET VOLUME 9.9 fL (7.4-11.4); MONOCYTES % (AUTO) 8.4 %; NEUTROPHILS % (AUTO) 75.6 %; PLT - PLATELET COUNT 149 10^3/uL (130-450); RED BLOOD COUNT 3.39 10^6/uL (4.70-6.10); RED CELL DISTRIBUTION WIDTH 18.9 % (12.0-15.0); WHITE BLOOD COUNT 2.6 x10^3/uL (4.8-10.8)
[2021-02-22 06:37] LABS: ABNORMAL LYMPHS % (MANUAL) 0 %
[2021-02-22 06:46] LABS: ALBUMIN 2.2 g/dL (3.2-5.5); ALBUMIN/GLOBULIN RATIO 0.9 (1.0-2.2); BILIRUBIN,TOTAL 0.4 mg/dL (0.2-1.0); CALCIUM 6.8 mg/dL (8.5-10.3); CREATININE 0.7 mg/dL (0.6-1.2); POTASSIUM 4.4 mmol/L (3.5-5.0); TOTAL PROTEIN 4.7 g/dL (6.7-8.2)
[2021-02-22] MEDS ORDERED: PROMETHAZINE INJ 25 MG in SODIUM CHLORIDE 0.9% 50 ML IV STA (06:53)
[2021-02-22] MEDS ORDERED: PROMETHAZINE 25 MG/1 ML VIAL ONE (06:58)
--- NOTE | 2021-02-22 07:04 | ED Physician Documentation ---
History of Present Illness - Stated complaint Stated Complaint: FEEDING TUBE CAME OUT - Chief complaint Chief Complaint: Abd Pain - History obtained from History obtained from: Patient, EMS - Additonal information Additional information: Patient is brought to the emergency department by EMS for chief complaint of "J- tube fell out". Patient states he woke up a few hours ago and realized that his J-tube had come out. Patient states it has been in place for about 2 months and that he is noticed that the skin and tissue around the suture sites has been becoming increasingly red and "mushy". Patient denies any fevers or chills. He has brought the J-tube with him. Medics do note that the patient complained of feeling very dizzy when they got him up to transfer to their bed, and they state that the patient said he felt like he was going to lose consciousness. Patient has been feeling fairly fine, though he does complain of a little nausea. He just started chemotherapy about 4 days ago for stage IV gastric cancer. He has also been receiving radiation. No other complaints at this time. Review of Systems Ten Systems: 10 systems reviewed and negative Constitutional: reports: Sweats, Other (Dizziness) Eyes: reports: Reviewed and negative Ears: reports: Reviewed and negative Nose: reports: Reviewed and negative Throat: reports: Reviewed and negative Cardiac: reports: Reviewed and negative Respiratory: reports: Reviewed and negative GI: reports: Nausea, Reviewed and negative : reports: Reviewed and negative Skin: reports: Reviewed and negative Musculoskeletal: reports: Reviewed and negative Neurologic: reports: Reviewed and negative Psychiatric: reports: Reviewed and negative Endocrine: reports: Reviewed and negative Immunocompromised: reports: Reviewed and negative PD PAST MEDICAL HISTORY - Past Medical History Past Medical History: Yes Cardiovascular: None Respiratory: None Neuro: None Endocrine/Autoimmune: None GI: Other : None Musculoskeletal: Other Derm: None - Past Surgical History Past Surgical History: No Ortho: Amputation, Other - Present Medications Home Medications: Ambulatory Orders Medication Instructions Recorded Confirmed Citalopram [CeleXA] 10 mg PO DAILY 01/01/21 01/16/21 HYDROcodone/ACET 10/325 [[place] 10 1 tab PO BID PRN 01/01/21 02/22/21 mg/325 mg] Lisinopril [Zestril] 20 mg PO DAILY 01/01/21 01/01/21 Zolpidem Tartrate [Ambien] 10 mg PO QPM PRN 01/01/21 02/22/21 Scopolamine Patch [Transderm-Scop] 1 each TOP Q3D 01/16/21 02/22/21 LORazepam [Ativan] 0.5 mg PO TID 02/22/21 02/22/21 Omeprazole [PriLOSEC] 20 mg PO DAILY 02/22/21 02/22/21 dexAMETHasone [Decadron] 4 mg PO DAILY 02/22/21 02/22/21 - Allergies Allergies/Adverse Reactions: Allergies Allergy/AdvReac Type Severity Reaction Status Date / Time Tetanus Vaccines and Toxoid Allergy Unknown Verified 02/22/21 05:44 - Social History Does the pt smoke?: No Smoking Status: Never smoker Does the pt drink ETOH?: No Does the pt have substance abuse?: No - Immunizations Immunizations are current?: Yes - POLST Patient has POLST: No POLST Status: Full Code PD ED PE NORMAL - Vitals Vital signs reviewed: Yes - General General: Alert and oriented X 3, No acute distress - HEENT HEENT: Atraumatic, PERRL, EOMI, Moist mucous membranes - Neck Neck: Supple, no meningeal sign - Cardiac Cardiac: RRR, No murmur - Respiratory Respiratory: No respiratory distress, Clear bilaterally - Abdomen Abdomen: Soft, Non tender, Non distended, Other (No specific tenderness. Jejunostomy site just to left of midline, oozing a little bit of yellow fluid. Does not appear cellulitic. Shallow ulcerations consistent with areas of suture, with mild only erythematous skin surrounding. No expressible drainage) - Derm Derm: Warm and dry - Extremities Extremities: No deformity - Neuro Neuro: Alert and oriented X 3 - Psych Psych: Normal mood, Normal affect Results - Vitals Vitals: Vital Signs - 24 hr 02/22/21 02/22/21 02/22/21 05:44 05:46 05:58 Temperature 36.1 C L 36.1 C L Heart Rate 90 90 75 Respiratory 16 16 19 Rate Blood Pressure 87/76 L 87/76 L 98/73 O2 Saturation 93 93 93 02/22/21 06:31 Temperature Heart Rate 62 Respiratory 18 Rate Blood Pressure 95/76 O2 Saturation 93 Oxygen O2 Source Room air - Labs Labs: Laboratory Tests 02/22/21 02/22/21 02/22/21 06:27 06:27 06:27 WBC 2.6 L RBC 3.39 L Hgb 8.3 L Hct 27.8 L MCV 82.0 MCH 24.5 L MCHC 29.9 L RDW 18.9 H Plt Count 149 MPV 9.9 Sodium 132 L Potassium 4.4 Chloride 101 Carbon Dioxide 21 Anion Gap 10.0 BUN 27 H Creatinine 0.7 Estimated GFR (MDRD) 111 Glucose 125 H Lactic Acid 2.4 H Calcium 6.8 L Total Bilirubin 0.4 AST 24 ALT 41 Alkaline Phosphatase 45 Total Protein 4.7 L Albumin 2.2 L Globulin 2.5 Albumin/Globulin Ratio 0.9 L Lipase 17 L PD MEDICAL DECISION MAKING - ED course Complexity details: reviewed results, re-evaluated patient, considered differential, d/w patient ED course: The patient was given IV fluid boluses and is currently receiving his second one. He has received Zofran, then Phenergan for his nausea.The tube was replaced, with good output of thick yellow fluid which smelled somewhat of stool. His labs had shown a hemoglobin of 8.4, and a slightly elevated lactate at 2.4. Plan is to continue to rehydrate. Patient signed out to Dr. Roldan pending completion of fluids and reevaluation. Departure - Departure Clinical Impression: Jejunostomy tube fell out, Dehydration Vomiting Qualifiers: Vomiting type: bilious vomiting Nausea presence: with nausea Qualified Code(s): R11.14 - Bilious vomiting Hypotension Qualifiers: Hypotension type: unspecified hypotension type Qualified Code(s): I95.9 - Hypotension, unspecified
[2021-02-22 07:38] LABS: BAND NEUTROPHILS % (MANUAL) 14 %; LYMPHOCYTES # (MANUAL) 0.4 10^3/uL (1.5-3.5); LYMPHOCYTES % (MANUAL) 2 %; MONOCYTES # (MANUAL) 0.1 10^3/uL (0.0-1.0); NEUTROPHILS # (MANUAL) 2.1 10^3/uL (1.5-6.6); REACTIVE LYMPHS % (MANUAL) 12 %
[2021-02-22 07:39] LABS: DIFFERENTIAL COMMENT MANUAL DIFFERENTIAL
--- NOTE | 2021-02-22 08:38 | XRAY Report ---
PROCEDURE: Abdomen 1 View X-Ray INDICATIONS: replaced J-tube TECHNIQUE: 1 view of the abdomen were acquired. COMPARISON: CT abdomen and pelvis 01/16/2021 FINDINGS: A jejunostomy tube is seen in the upper abdomen with tip in the right upper quadrant. No partial dila tierney loop of bowel demonstrated. Large amount of stool in the left colon and rectum. IMPRESSION: Catheter overlying the upper abdomen, by report representing a jejunostomy tube. Tip of the catheter is within the right upper quadrant. No significant change from preliminary report Reviewed by: Yandel Lozoya MD on 02/22/2021 8:37 AM PDT Approved by: Yandel Lozoya MD on 02/22/2021 8:37 AM PDT Station ID: [id number]
--- NOTE | 2021-02-22 08:49 | XRAY Report ---
PROCEDURE: Chest 1 View X-Ray INDICATIONS: chest pain TECHNIQUE: One view of the chest was acquired. COMPARISON: Chest x-ray 01/16/2021 FINDINGS: Surgical changes and devices: Right Port-A-Cath is present with distal tip projecting over the mid SV C. Lungs and pleura: There is an overall appearance of mild coarsened interstitial opacities. Mild appea nellie of increased opacity is noted within the left base. Mediastinum: Mediastinal contours appear normal. Heart size is normal. Bones and chest wall: No suspicious bony lesions. Overlying soft tissues appear unremarkable. IMPRESSION: Mild coarsened interstitial opacities possibly related to edema versus developing airspace disease prabhakar ch as pneumonia. Mild left basilar opacity could represent dependent changes versus developing areas of pneumonia/effusion. Reviewed by: Archana Burton MD on 02/22/2021 8:47 AM PDT Approved by: Archana Burton MD on 02/22/2021 8:47 AM PDT Station ID: [id number]
[2021-02-22] MEDS ORDERED: cefTRIAXone 1 GM VIAL IVP STA (08:52)
[2021-02-22] MEDS ORDERED: AZITHROMYCIN INJ 500 MG in SODIUM CHLORIDE 0.9% 250 ML IV STA (08:52)
[2021-02-22] MEDS ORDERED: ADENOSINE 6 MG/2 ML VIAL IVP STA (09:18)
[2021-02-22] MEDS ORDERED: KETAMINE 500 MG/10 ML VIAL IVP STA (09:38)
[2021-02-22 09:50] LABS: CORONAVIRUS 229E-RESP PCR NOT DETECTED; CORONAVIRUS HKU1-RESP PCR NOT DETECTED; CORONAVIRUS NL63-RESP PCR NOT DETECTED; CORONAVIRUS OC43-RESP PCR NOT DETECTED; HUMAN METAPNEUMOVIRUS NOT DETECTED; RHINOVIRUS/ENTEROVIRUS NOT DETECTED; SARS-CoV-2 -RESP PCR PANEL NOT DETECTED
[2021-02-22 09:51] LABS: B. PARAPERTUSSIS- RESP PCR PAN NOT DETECTED; B. PERTUSSIS- RESP PCR PANEL NOT DETECTED; C. PNEUMONIAE- RESP PCR PANEL NOT DETECTED; INFLUENZA A- RESP PCR PANEL NOT DETECTED; INFLUENZA B - RESP PCR PANEL NOT DETECTED; M. PNEUMONIAE- RESP PCR PANEL NOT DETECTED; PARAINFLUENZA VIRUS 1 NOT DETECTED; PARAINFLUENZA VIRUS 2 NOT DETECTED; PARAINFLUENZA VIRUS 3 NOT DETECTED; PARAINFLUENZA VIRUS 4 NOT DETECTED; RSV- RESP PCR PANEL NOT DETECTED
--- NOTE | 2021-02-22 10:26 | ED Physician Documentation ---
ED Addendum - Addendum Addendum: 02/22/21 10:22The patient's blood pressure had improved with some IV fluids. However it then softened again to 90s systolic. He did have improved color though. Recheck lactate x-ray showed an increase from the 2.4 now up to 3.6. He states he does feel generally weak still. His relative arrived and states he had been receiving IV antibiotics levofloxacin I believe or something with Floxin and the word for concern of pneumonia. I did talk with the hospitalist and we would place him in the hospital because of the concerns for the pneumonia versus or in conjunction with early sepsis and the low blood pressure. Certainly some element of under hydration is likely. He does not have any abdominal pain or tenderness so I did not do a scan. He had some loose stool and we sent that to the lab for studies. At this point awaiting orders and the patient to go to the floor, he did abruptly have him monitor rhythm change to a fast heart rate at 1 70-1 80. It was fairly regular appearing so could not distinguish SVT versus A. fib. He was awake and conversant but slightly pale. He was given 6 mg adenosine IV which slowed the rhythm down and showed an apparent A. fib which then resumed at the rate of 1 70-1 80. Blood pressure at this point was 83 systolic. He was a michelle le bit more pale in color. I was considering medication for sedation but given the apparent unstable nature of it with the new onset A. fib, I talked with the patient and explained the situation and he consented to an emergent cardioversion without sedation. AP approach with the pads was used and the patient was cardioverted at 120 J with successful return to sinus rhythm. His blood pressure improved to 99 systolic. I advised the hospitalist of the event and she will place him in ICU instead of the floor.
--- NOTE | 2021-02-22 11:24 | HISTORY & PHYSICAL EXAMINATION ---
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 He and his returned from [place] this Spring and for 1 month he had noticed difficulty swallowing, food would regurgitate up and he had trouble swallowing even saliva. He was admitted here with that complaint and anemia in December 2019 and EGD was done here that showed a necrotic bleeding gastric ulcer that was obstructing the GI tract, and he had esophageal varices, and he required transfer to higher level of care. He was diagnosed with gastric cancer, got a Jejunostomy tube placed, puts liquefied feeds into that. He was admitted here again with fever, abdominal pain and was found to have a hemoglobin of 3, heme positive black stool, was febrile, lactic acid level elevated at 2.3, was tachycardic and abdominal imaging then showed an ileus and he required blood transfused and iv antibiotics and was transferred to . Subsequently, has had a port placed, had recent outpatient radiation for 10 days and had chemo started on Friday02/18/2021 (5 days ago). Yesterday his jejunostomy tube fell out (it pulled on something), and today he had 2 loose BMs and felt weak and thus came to the ER. He was found to have BP of 90 systolic, Hgb 8 (which is his baseline), WBC 2.6, L.A. 2.4 and he received 2L of iv fluids. The repeat L.A. was 3.6. A CXR shows mild infiltrate vs atelectasis. He then went into witnessed Afib-flutter with RVR (new onset) at rate 180 c in the ED, and underwent cardioversion. He is being admitted to the ICU. History - Past Medical History Cardiovascular: reports: None Respiratory: reports: None Neuro: reports: None Endocrine/Autoimmune: reports: None GI: reports: Other : reports: None Musculoskeletal: reports: Other Derm: reports: None MRSA Hx?: No - Past Surgical History General: reports: EGD Ortho: reports: Amputation, Other - Family & Social History Family History: Mother: , Father: Family History Comment/Other: He denies any significant family history. Living Situation: With spouse/s.o. Social History Notes: He lives with his . 8 months out of 12 in [place] and 4 months on [facility]. He is independent of activities of daily living. He does not use tobacco products, use alcohol or recreational substances. - Substance History Use: Uses substance without health or social issues: NONE - POLST Patient has POLST: No POLST Status: Full Code Meds/Allgy - Home Medications Home Medications: Ambulatory Orders Medication Instructions Recorded Confirmed Citalopram [CeleXA] 10 mg PO DAILY 01/01/21 02/22/21 Zolpidem Tartrate [Ambien] 10 mg PO QPM PRN 01/01/21 02/22/21 Scopolamine Patch [Transderm-Scop] 1 each TOP Q3D 01/16/21 02/22/21 Enoxaparin Sodium [Lovenox] 80 mg SQ BID 02/22/21 02/22/21 LORazepam [Ativan] 0.5 mg PO TID PRN 02/22/21 02/22/21 Loperamide [Imodium] 2 mg PO PRN PRN 02/22/21 02/22/21 OLANZapine [Olanzapine] 2.5 mg PO QPM 02/22/21 02/22/21 Omeprazole [PriLOSEC] 20 mg PO DAILY 02/22/21 02/22/21 Ondansetron Odt [Zofran Odt] 4 mg SL Q8H PRN 02/22/21 02/22/21 Prochlorperazine [Compazine] 5 mg PO Q8H PRN 02/22/21 02/22/21 - Allergies Allergies/Adverse Reactions: Allergies Allergy/AdvReac Type Severity Reaction Status Date / Time Tetanus Vaccines and Toxoid Allergy Unknown Verified 02/22/21 05:44 Exam - Vital Signs Vital Signs: Vital Signs x48h Temp Pulse Resp BP Pulse Ox 02/22/21 09:18 173 H 18 83/62 L 92 02/22/21 09:05 169 H 16 104/59 L 92 02/22/21 08:45 70 16 103/84 H 93 02/22/21 08:30 78 16 90/70 93 02/22/21 08:15 82 16 90/60 94 02/22/21 07:30 67 18 116/70 93 02/22/21 07:06 74 18 101/60 95 02/22/21 06:31 62 18 95/76 93 02/22/21 05:58 75 19 98/73 93 02/22/21 05:46 36.1 C L 90 16 87/76 L 93 02/22/21 05:44 36.1 C L 90 16 87/76 L 93 Sepsis Event Note (H) - Sepsis Criteria Sepsis Criteria: Recorded Heart Rate greater than 90 bpm, SBP less than 90 mmHg, Metabolic: lactate > 2 mmol/L Conclusion/Plan - Problem List (1) Sepsis Conclusion/Plan: Colitis related to his chemo causing diarrhea could be his source of sepsis or his pulmonary infiltrates. Will start IV fluids. Will order empiric IV antibiotics to cover both aspiration pneumonia and colitis. Admit to the ICU. Follow electrolytes and CBC daily (2) Hypotension Conclusion/Plan: He likely has a combination of hypovolemia from N/V and septic shock as the cause of Hypotension Qualifiers: Hypotension type: unspecified hypotension type Qualified Code(s): I95.9 - Hypotension, unspecified (3) Aspiration pneumonia Conclusion/Plan: Because of the frequent vomiting that he has had recently, suspect that his pulmonary infiltrates could be aspiration pneumonia. He received empiric ceftriaxone and Zithromax for coverage of pneumonia in the ED but we will use Zosyn to cover anaerobes and for aspiration pneumonia treatment. Order sputum culture if he makes sputum (4) Diarrhea Conclusion/Plan: This is most likely related to the recent radiation and chemotherapy but will need to rule out infectious causes. C. difficile and stool cultures are pending. Will start IV fluids to prevent further dehydration. Will resume feeds through his jejunostomy (since it was replaced by the ED provider Dr. Samuel), with an easy to digest formula. Will start Imodium if C diff neg>> it was neg. (5) N&V (nausea and vomiting) Conclusion/Plan: This is most likely related to the radiation and chemotherapy. Will order as needed Zofran and as needed Compazine. (6) Leukopenia due to antineoplastic chemotherapy Conclusion/Plan: Follow CBC daily. When his ANC is below 1000, will start specific orders (7) New onset atrial fibrillation Conclusion/Plan: This has this is a new diagnosis for him and was witnessed in the ED and he was rapidly cardioverted back to sinus rhythm. Admit to the ICU and managed on telemetry. Evaluate for causes: will R/O hyperthyroidism, acute WA with troponins and heart failure by obtaining an Echo. Because of his low blood pressure, will not automatically add beta-saadia or Cardizem for prevention of recurrence, would use digoxin if he gets tachycardic again. Will consider what type of anticoagulation based on information regarding his jejunostomy that fell out. Will guaiac its contents (8) Gastric cancer Conclusion/Plan: According to the , he has mets in the abdomen. We will request records from his oncology provider or last hospitalization - Lab Results Fish Bones: 02/22/21 06:27 02/22/21 06:27
[2021-02-22] MEDS: D5NS W/20 MEQ KCL 1,000 ML IV SCH ×2 (11:30→21:21)
[2021-02-22] MEDS: MORPHINE 2 MG/ML CARPUJECT IVP PRN ×2 (12:54→15:08)
[2021-02-22] MEDS ORDERED: PIPERACILLIN/TAZOBACTAM 3.375 GM in SODIUM CHLORIDE 0.9% MINIBAG 100 ML IV SCH (13:00)
--- NOTE | 2021-02-22 13:49 | PHARMACY PROGRESS NOTE ---
- Best Possible Medication History Admit Date and Time: 02/22/21 0928 Processed by: Pharmacy Medication History completed: Yes Patient Interview: Completed Secondary Source(s): Written medication list (SPOUSE BROUGHT IN WRITTEN MEDICATION LIST ) As the person ultimately responsible for medication therapy, providers are able to order a medication from an existing home medication list in [facility] via the "Reconcile Routine" prior to Confirmation of that medication by technical support 1 software engineer. Such practice is discouraged except when the physician, in their clinical judgment, deems that a medical need exists for a medication without regard to previous use.
[2021-02-22] MEDS: ONDANSETRON 4 MG/2 ML VIAL IVP PRN ×2 (15:08→22:05)
[2021-02-22] MEDS: PROCHLORPERAZINE 10 MG/2 ML VIAL IVP PRN ×2 (16:39→23:32)
[2021-02-22] MEDS ORDERED: LOPERAMIDE ORAL SOLUTION 2 MG/15 ML UDC PO PRN (17:00)
[2021-02-22] MEDS: PIPERACILLIN/TAZOBACTAM 3.375 GM in SODIUM CHLORIDE 0.9% MINIBAG 100 ML IV SCH (17:20)
[2021-02-22] MEDS: SODIUM CHLORIDE FLUSH 0.9% 10 ML SYRINGE IVP SCH ×2 (17:29→20:22)
[2021-02-22] MEDS ORDERED: MORPHINE 2 MG/ML CARPUJECT IVP PRN (17:43)
[2021-02-22 20:15] LABS: BILIRUBIN,URINE NEGATIVE (NEGATIVE); GLUCOSE, URINE (UA) NEGATIVE (NEGATIVE); KETONES,URINE (UA) NEGATIVE (NEGATIVE); LEUKOCYTE ESTERASE, URINE NEGATIVE (NEGATIVE); NITRITE,URINE NEGATIVE (NEGATIVE); OCCULT BLOOD,URINE NEGATIVE (NEGATIVE); PH,URINE 5.5 PH (5.0-7.5); PROTEIN,URINE NEGATIVE (NEGATIVE); UROBILINOGEN,URINE 0.2 (NORMAL) E.U./dL (NORMAL)
[2021-02-22] MEDS: HYDROmorphone 1 MG/ML CARPUJECT IVP PRN ×2 (20:19→22:48)
[2021-02-22 20:21] LABS: CLARITY,URINE CLEAR (CLEAR)
[2021-02-22] MEDS: LORazepam 2 MG/ML VIAL IVP PRN (20:22)
[2021-02-22] MEDS ORDERED: SCOPOLAMINE PATCH TOP SCH (21:00)
[2021-02-22] MEDS ORDERED: ACETAMINOPHEN 325 MG TABLET PO PRN (23:31)
[2021-02-22] MEDS: SODIUM CHLORIDE FLUSH 0.9% 10 ML SYRINGE IVP PRN (23:32)
[2021-02-22] MEDS ORDERED: ZOLPIDEM 5 MG TABLET PO PRN (23:32)
[2021-02-22] MEDS: ZOLPIDEM 5 MG TABLET PO PRN (23:59)
[2021-02-23] MEDS: PIPERACILLIN/TAZOBACTAM 3.375 GM in SODIUM CHLORIDE 0.9% MINIBAG 100 ML IV SCH ×4 (01:03→20:32)
[2021-02-23] MEDS: LORazepam 2 MG/ML VIAL IVP PRN ×3 (03:45→22:29)
[2021-02-23] MEDS: SODIUM CHLORIDE FLUSH 0.9% 10 ML SYRINGE IVP PRN ×2 (05:43→06:12)
[2021-02-23 05:50] LABS: CALCIUM, IONIZED 1.03 mmol/L (1.15-1.33); VBG PH 7.445 (7.31-7.41)
[2021-02-23 06:08] LABS: EOSINOPHILS % (AUTO) 0.7 %; HCT - HEMATOCRIT 26.5 % (42.0-52.0); LYMPHOCYTES % (AUTO) 13.7 %; MEAN CORPUSCULAR HEMOGLOBIN 24.8 pg (27.0-31.0); MEAN CORPUSCULAR HGB CONC 30.2 g/dL (32.0-36.0); MEAN PLATELET VOLUME 10.2 fL (7.4-11.4); MONOCYTES % (AUTO) 6.5 %; NEUTROPHILS % (AUTO) 78.4 %; PLT - PLATELET COUNT 141 10^3/uL (130-450); RED BLOOD COUNT 3.23 10^6/uL (4.70-6.10)
[2021-02-23] MEDS: HYDROmorphone 1 MG/ML CARPUJECT IVP PRN ×4 (06:08→19:10)
[2021-02-23 06:11] LABS: INR 1.2 (0.8-1.2); PT - PROTHROMBIN TIME 13.5 secs (9.9-12.6)
[2021-02-23] MEDS: PANTOPRAZOLE 40 MG VIAL IVP SCH (06:12)
[2021-02-23 06:20] LABS: ALBUMIN 1.8 g/dL (3.2-5.5); BILIRUBIN,DIRECT 0.1 mg/dL (0.1-0.5); BILIRUBIN,TOTAL 0.4 mg/dL (0.2-1.0); PHOSPHORUS 2.8 mg/dL (2.5-4.6); WHITE BLOOD COUNT 1.4 x10^3/uL (4.8-10.8)
[2021-02-23 06:21] LABS: ABNORMAL LYMPHS % (MANUAL) 0 %; ALBUMIN 1.8 g/dL (3.2-5.5); ALBUMIN/GLOBULIN RATIO 0.8 (1.0-2.2); BILIRUBIN,TOTAL 0.6 mg/dL (0.2-1.0); CALCIUM 6.9 mg/dL (8.5-10.3); CREATININE 0.5 mg/dL (0.6-1.2); POTASSIUM 3.8 mmol/L (3.5-5.0); TOTAL PROTEIN 4.1 g/dL (6.7-8.2)
[2021-02-23 06:30] LABS: BAND NEUTROPHILS % (MANUAL) 5 %; DIFFERENTIAL COMMENT MANUAL DIFFERENTIAL; LYMPHOCYTES # (MANUAL) 0.2 10^3/uL (1.5-3.5); LYMPHOCYTES % (MANUAL) 15 %; NEUTROPHILS # (MANUAL) 1.1 10^3/uL (1.5-6.6); PLATELET ESTIMATE, MANUAL NORMAL (130-450,000) (NORMAL); PLATELET MORPHOLOGY NORMAL APPEARANCE (NORMAL); RBC MORPHOLOGY (MULTIPLE) 2+ ANISOCYTOSIS (NORMAL); WBC MORPHOLOGY (MULTIPLE) NORMAL APPEARANCE (NORMAL)
[2021-02-23] MEDS: D5NS W/20 MEQ KCL 1,000 ML IV SCH ×2 (08:03→17:36)
[2021-02-23] MEDS: METOPROLOL 5 MG/5 ML VIAL IVP SCH ×2 (08:36→17:36)
[2021-02-23] MEDS: ONDANSETRON 4 MG/2 ML VIAL IVP PRN (08:39)
[2021-02-23] MEDS: SODIUM CHLORIDE FLUSH 0.9% 10 ML SYRINGE IVP SCH ×2 (08:41→13:00)
[2021-02-23] MEDS ORDERED: ENOXAPARIN 40 MG/0.4 ML SYRINGE SUBQ SCH ×2 (09:00→10:30)
[2021-02-23] MEDS: PROCHLORPERAZINE 10 MG/2 ML VIAL IVP PRN (09:05)
--- NOTE | 2021-02-23 13:11 | ADVANCE CARE PLANNING NOTE ---
Advance Care Planning - Planning Encounter Date: 02/23/21 Time: 12:00 Purpose: To confirm DNR status and sign a POLST To confirm his wishes after having a telemedicine meeting with his Oncologist 1 hour ago. Parties in Attendance: I spoke to the patient and who was at bedside Decisional Capacity of the Patient: He is lucid and making appropriate decisions He was not given narcotics or Benzos (for N/V), until after the telemedicine meeting - Diagnosis for Encounter (1) Gastric cancer Summary: Yesterday the told me that the cancer was seen on his abdominal CT metastasized to many abdominal locations. After the meeting with Dr. Chavez 1 hour ago, his GI oncologist, the patient understood that he has 2 weeks to 2 months to live. No further chemotherapy will be offered to him because it would "shorten his life and not prolong it". The then described that Hospice has already been contacted 3 days ago and visited in their house and could potentially take him when he is ready for hospice care. 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 He and his returned from [place] this Spring and for 1 month he had noticed difficulty swallowing, food would regurgitate up and he had trouble swallowing even saliva. He was admitted here with that complaint and anemia in December 2019 and EGD was done here that showed a necrotic bleeding gastric ulcer that was obstructing the GI tract, and he had esophageal varices, and he required transfer to higher level of care. He was diagnosed with gastric cancer, got a Jejunostomy tube placed, puts liquefied feeds into that. He was admitted here again with fever, abdominal pain and was found to have a hemoglobin of 3, heme positive black stool, was febrile, lactic acid level elevated at 2.3, was tachycardic and abdominal imaging then showed an ileus and he required blood transfused and iv antibiotics and was transferred to . Subsequently, has had a port placed, had recent outpatient radiation for 10 days and had chemo started on Friday02/18/2021 (6 days ago). His jejunostomy tube fell out (it pulled on something), and he started having diarrhea and felt weak and thus came to the ER yesterday. He was found to have BP of 90 systolic, WBC 2.6, L.A. 2.4 then 3.6. The J tube was replaced by the ER doctor. He was admitted to the ICU with sepsis, chemo-induced N/V/D and neutropenia and a poss aspiration pneumonia. Goals of Care: The patient was definite about wanting to naturally, and wanted to be made DNR./DNI. We completed the POLST form during this meeting. He will follow his Oncologist's recommendations and not get further chemo. He and his want to proceed with Hospice care at his home. I advise that he be treated here as an Inpt for the N/V/D and (stump) pain, until these symptoms are under control. He and his agreed. I expect he may need to be here 1-2 more days therefore. Plan: Continue DNR/DNI status, which was ordered yesterday when he first told me his wishes. Move him out of ICU status. Continue narcotics, Ativan/Compazine/Scopalamine patch for N/V, start Imodium for diarrhea, continue tube feeds for comfort and possibly stop this before DCh. Will continue antibx until day of DCh. Hospice referral to be ordered officially. Inform Social Work to coordinate hospice equipment and discharge. Code Status: Do Not Attempt Resuscitation Time spent on advance care plannin min
--- NOTE | 2021-02-23 13:12 | PROVIDER PROGRESS NOTE ---
Assessment/Plan - Problem List (1) Aspiration pneumonia Assessment/Plan: A sputum culture was obtained and does have bacteria on Gram stain. Await culture results. Will continue empiric Zosyn (2) Diarrhea Assessment/Plan: His stool was negative for C. difficile. He could not have CT of the abdomen because of the elevated creatinine but most likely this is a result of the chemotherapy that he just had because the time course suggests this. Will not plan a CT abdomen since comfort and Hospice care are the upcoming plan. Will start Imodium to decrease liquid stools. Continue with IV fluids. (3) N&V (nausea and vomiting) Assessment/Plan: Overnight his prn Zofran alternating with prn Compazine did little to help his symptoms. His scopolamine patch was resumed once the meds were reconciled which helped. Ativan IV was also given which significantly helped the nausea. We will continue with these meds as needed (4) Leukopenia due to antineoplastic chemotherapy Assessment/Plan: White blood count has dropped further, consistent with recent chemotherapy. Will order precautions as his ANC drops below thousand. Since there will be no aggressive measures such as blood transfusions or transfer planned, will decrease the frequency of monitoring his CBC (5) New onset atrial fibrillation Assessment/Plan: Urgent cardioversion done in the ED yesterday. Etiology is unclear, he does not have hyperthyroidism, troponins were negative for an acute HI. He is not short of breath to consider PE as a cause, he does have a history of DVT however. He is uncomfortable wearing MARIA ALEJANDRA stockings on 1 foot and request Lovenox. The Lovenox will not be a prophylactic dose but resume his DVT dose of 80 mg subcu twice daily (6) Gastric cancer Assessment/Plan: He had a telemedicine meeting with his gastro oncologist today, Dr. Chavez. He was told that there will be no more chemotherapy treatments because of how badly this last chemo made him feel. He has 2 weeks to 2 mos prognosis, per his . Hospice was recommended. I explained to him and the that we will continue to treat his symptoms of N/V/D before he is discharged. Will order a hospice consult officially. (7) Sepsis Assessment/Plan: Resolved (8) Hypotension Qualifiers: Hypotension type: unspecified hypotension type Qualified Code(s): I95.9 - Hypotension, unspecified Assessment/Plan: Resolved with iv fluids - Current Meds Current Meds: Current Medications Generic Name Dose Route Start Last Admin Trade Name Freq PRN Reason Stop Dose Admin Acetaminophen 650 mg 02/22/21 23:31 02/22/21 23:58 Acetaminophen 325 Mg Tablet PO 650 mg Q6HR PRN Administration Pain or Fever > 38C (100.4F) Hydromorphone HCl 1 mg 02/22/21 20:05 02/23/21 12:59 Hydromorphone 1 Mg/Ml Carpuject IVP 1 mg Q3HR PRN Administration PAIN Potassium Chloride/Dextrose/Sod Cl 1,000 mls @ 100 mls/hr 02/22/21 11:00 02/23/21 08:03 D5ns W/20 Meq Kcl IV 100 mls/hr .Q10H SERVANDO Administration Piperacillin Sod/Tazobactam 100 mls @ 25 mls/hr 02/23/21 13:00 02/23/21 12:59 Sod 3.375 gm/ Sodium Chloride IV 25 mls/hr Q8H SERVANDO Administration Loperamide HCl 2 mg 02/22/21 17:00 02/22/21 18:05 Loperamide Oral Solution 2 Mg/15 Ml Udc PO 2 mg Q2H PRN Administration Diarrhea Lorazepam 0.5 mg 02/22/21 20:04 02/23/21 03:45 Lorazepam 2 Mg/Ml Vial IVP 0.5 mg Q6H PRN Administration Nausea / Vomiting Metoprolol Tartrate 2.5 mg 02/23/21 09:00 02/23/21 08:36 Metoprolol 5 Mg/5 Ml Vial IVP 2.5 mg Q8H SERVANDO Administration Ondansetron HCl 4 mg 02/22/21 11:00 02/23/21 08:39 Ondansetron 4 Mg/2 Ml Vial IVP 4 mg Q6HR PRN Administration Nausea / Vomiting Pantoprazole Sodium 40 mg 02/23/21 07:00 02/23/21 06:12 Pantoprazole 40 Mg Vial IVP 40 mg QDAC SERVANDO Administration Prochlorperazine Edisylate 10 mg 02/22/21 12:54 02/23/21 09:05 Prochlorperazine 10 Mg/2 Ml Vial IVP 10 mg Q6HR PRN Administration Nausea / Vomiting Scopolamine HBr 1 patch 02/22/21 21:00 02/22/21 20:22 Scopolamine Patch TOP 1 patch Q3D SERVANDO Administration Sodium Chloride 10 ml 02/22/21 17:00 02/23/21 13:00 Sodium Chloride Flush 0.9% 10 Ml Syringe IVP 10 ml 0100,0900,1700 SERVANDO Administration Sodium Chloride 10 ml 02/22/21 11:00 02/23/21 06:12 Sodium Chloride Flush 0.9% 10 Ml Syringe IVP 10 ml PRN PRN Administration NEEDED PER PROVIDER ORDERS Zolpidem Tartrate 10 mg 02/22/21 23:45 02/22/21 23:59 Zolpidem 5 Mg Tablet PO 10 mg QPM PRN Administration Insomnia - Lab Result Fish Bone Diagrams: 02/23/21 05:45 02/23/21 05:45 - Additional Planning My Orders: My Active Orders 02/22/21 12:30 CUL, RESPIRATORY [RM] Urgent 02/22/21 12:37 Straight Catheter Insertion [RC] PRN 02/22/21 12:41 Code Status [OTHERS] Routine 02/22/21 12:54 Prochlorperazine Inj [Compazine Inj] 10 mg IVP Q6HR PRN 02/22/21 13:57 Tube Feeding [RC] QSHIFT 02/22/21 17:00 Loperamide Oral Solution [Imodium Oral Solution] 2 mg PO Q2H PRN Sodium Chloride Flush 0.9% [Normal Saline Flush 0.9%] 10 ml IVP 0100,0900,1700 02/23/21 09:00 Metoprolol Inj [Lopressor Inj] 2.5 mg IVP Q8H 02/23/21 13:00 Piperacillin/Tazobactam [Zosyn] 3.375 gm Sodium Chloride 0.9% Minibag [Normal Saline 0.9% Minibag] 100 ml IV Q8H 02/23/21 21:00 Enoxaparin [Lovenox] 80 mg SUBQ BID 02/24/21 05:00 BMP - BASIC METABOLIC PANEL [CHEM] DAILYLAB CALCIUM, IONIZED ([facility]) [BG] DAILYLAB CBC - COMP BLD CT W/AUTO DIFF [HEME] DAILYLAB 02/25/21 05:00 BMP - BASIC METABOLIC PANEL [CHEM] DAILYLAB CALCIUM, IONIZED ([facility]) [BG] DAILYLAB CBC - COMP BLD CT W/AUTO DIFF [HEME] DAILYLAB COMPREHENSIVE METABOLIC PANEL [CHEM] Timed MAGNESIUM [CHEM] Timed PHOSPHORUS [CHEM] Timed PREALBUMIN [CHEM] Timed 02/26/21 05:00 BMP - BASIC METABOLIC PANEL [CHEM] DAILYLAB CBC - COMP BLD CT W/AUTO DIFF [HEME] DAILYLAB 02/28/21 05:00 COMPREHENSIVE METABOLIC PANEL [CHEM] Timed MAGNESIUM [CHEM] Timed PHOSPHORUS [CHEM] Timed PREALBUMIN [CHEM] Timed Subjective - Subjective Patient Reports: Feeling Better (Less stump pain, less abd pain where jejunostomy was replaced and sewn in, less diarrhea, less N/V on Ativan and Scopalamine patch) Objective Vital Signs: Vital Signs - 24 hr 02/22/21 02/22/21 02/22/21 14:00 15:00 16:00 Temperature 37.3 C Heart Rate [ 106 H 106 H 109 H Monitoring electrodes] Respiratory 19 18 18 Rate Blood Pressure Blood Pressure 103/71 108/80 114/74 [Right Brachial artery] O2 Saturation 94 93 95 02/22/21 02/22/21 02/22/21 17:00 18:00 19:00 Temperature Heart Rate [ 109 H 111 H 112 H Monitoring electrodes] Respiratory 21 21 21 Rate Blood Pressure Blood Pressure 99/69 117/77 118/78 [Right Brachial artery] O2 Saturation 94 95 96 02/22/21 02/22/21 02/22/21 19:21 20:00 21:00 Temperature 37.2 C Heart Rate [ 113 H 110 H Monitoring electrodes] Respiratory 22 20 Rate Blood Pressure Blood Pressure 120/80 108/70 [Right Brachial artery] O2 Saturation 95 93 02/22/21 02/22/21 02/23/21 22:00 23:00 00:00 Temperature 37.9 C Heart Rate [ 114 H 114 H 112 H Monitoring electrodes] Respiratory 17 21 19 Rate Blood Pressure Blood Pressure 117/83 H 121/78 124/78 [Right Brachial artery] O2 Saturation 95 92 93 02/23/21 02/23/21 02/23/21 01:00 02:00 03:00 Temperature Heart Rate [ 113 H 107 H 106 H Monitoring electrodes] Respiratory 22 24 18 Rate Blood Pressure Blood Pressure 121/74 113/71 115/72 [Right Brachial artery] O2 Saturation 92 95 97 02/23/21 02/23/21 02/23/21 04:00 05:00 06:00 Temperature 37.0 C Heart Rate [ 111 H 112 H 116 H Monitoring electrodes] Respiratory 23 24 23 Rate Blood Pressure Blood Pressure 116/76 123/81 H 120/77 [Right Brachial artery] O2 Saturation 95 96 96 02/23/21 02/23/21 02/23/21 07:00 08:00 08:36 Temperature 37.1 C Heart Rate [ 118 H 122 H Monitoring electrodes] Respiratory 23 21 Rate Blood Pressure 128/82 H Blood Pressure 122/80 119/78 [Right Brachial artery] O2 Saturation 95 96 02/23/21 02/23/21 02/23/21 08:40 08:45 08:50 Temperature Heart Rate [ 126 H 109 H 111 H Monitoring electrodes] Respiratory 22 Rate Blood Pressure Blood Pressure 128/82 H 126/83 H 125/75 [Right Brachial artery] O2 Saturation 96 02/23/21 02/23/21 02/23/21 09:00 10:00 11:00 Temperature Heart Rate [ 116 H 118 H 120 H Monitoring electrodes] Respiratory 23 22 26 H Rate Blood Pressure Blood Pressure 131/84 H 129/85 H 126/78 [Right Brachial artery] O2 Saturation 95 95 96 02/23/21 12:00 Temperature 37.5 C Heart Rate [ 121 H Monitoring electrodes] Respiratory 27 H Rate Blood Pressure Blood Pressure 119/73 [Right Brachial artery] O2 Saturation 95 Oxygen O2 Source Nasal cannula I&O (Last 24 Hrs): Intake and Output Totals x24h 02/21/21 02/22/21 02/23/21 23:59 23:59 23:59 Intake Total 5516.667 2110.000 Output Total 950 551 Balance 4566.667 1559.000 General: Alert, Oriented x3 HEENT: Mucous membr. 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) - Results Results: Laboratory Results WBC 1.4 x10^3/uL (4.8-10.8) L* 02/23/21 05:45 RBC 3.23 10^6/uL (4.70-6.10) L 02/23/21 05:45 Hgb 8.0 g/dL (14.0-18.0) L 02/23/21 05:45 Hct 26.5 % (42.0-52.0) L 02/23/21 05:45 MCV 82.0 fL (80.0-94.0) 02/23/21 05:45 MCH 24.8 pg (27.0-31.0) L 02/23/21 05:45 MCHC 30.2 g/dL (32.0-36.0) L 02/23/21 05:45 RDW 20.0 % (12.0-15.0) H 02/23/21 05:45 Plt Count 141 10^3/uL (130-450) 02/23/21 05:45 MPV 10.2 fL (7.4-11.4) 02/23/21 05:45 Neut # (Auto) Not Reportable 02/23/21 05:45 Lymph # (Auto) Not Reportable 02/23/21 05:45 [place] # (Auto) Not Reportable 02/23/21 05:45 Eos # (Auto) Not Reportable 02/23/21 05:45 Baso # (Auto) Not Reportable 02/23/21 05:45 Absolute Nucleated RBC Not Reportable 02/23/21 05:45 Total Counted 100 02/23/21 05:45 Band Neuts % (Manual) 5 % (0-10) 02/23/21 05:45 Reactive Lymphs % (Man) 12 % 02/22/21 06:27 Abnorm Lymph % (Manual) 0 % 02/23/21 05:45 Nucleated RBC % Not Reportable 02/23/21 05:45 Neutrophils # (Manual) 1.1 10^3/uL (1.5-6.6) L 02/23/21 05:45 Lymphocytes # (Manual) 0.2 10^3/uL (1.5-3.5) L 02/23/21 05:45 Monocytes # (Manual) 0.0 10^3/uL (0.0-1.0) 02/23/21 05:45 Eosinophils # (Manual) 0.0 10^3/uL (0-0.7) 02/23/21 05:45 Basophils # (Manual) 0.0 10^3/uL (0-0.1) 02/23/21 05:45 Differential Comment MANUAL DIFFERENTIAL 02/23/21 05:45 WBC Morphology NORMAL APPEARANCE (NORMAL) 02/23/21 05:45 Platelet Estimate NORMAL (130-450,000) (NORMAL) 02/23/21 05:45 Platelet Morphology NORMAL APPEARANCE (NORMAL) 02/23/21 05:45 RBC Morph Micro Appear 2+ ANISOCYTOSIS (NORMAL) 02/23/21 05:45 PT 13.5 secs (9.9-12.6) H 02/23/21 05:45 INR 1.2 (0.8-1.2) 02/23/21 05:45 VBG pH 7.445 (7.31-7.41) H 02/23/21 05:45 Ionized Calcium 1.03 mmol/L (1.15-1.33) L 02/23/21 05:45 Sodium 136 mmol/L (135-145) 02/23/21 05:45 Sodium Cancelled 02/23/21 05:45 Potassium 3.8 mmol/L (3.5-5.0) 02/23/21 05:45 Potassium Cancelled 02/23/21 05:45 Chloride 107 mmol/L (101-111) 02/23/21 05:45 Chloride Cancelled 02/23/21 05:45 Carbon Dioxide 21 mmol/L (21-32) 02/23/21 05:45 Carbon Dioxide Cancelled 02/23/21 05:45 Anion Gap 8.0 (6-13) 02/23/21 05:45 Anion Gap Cancelled 02/23/21 05:45 BUN 23 mg/dL (6-20) H 02/23/21 05:45 BUN Cancelled 02/23/21 05:45 Creatinine 0.5 mg/dL (0.6-1.2) L 02/23/21 05:45 Creatinine Cancelled 02/23/21 05:45 Estimated GFR (MDRD) 164 (>89) 02/23/21 05:45 Estimated GFR (MDRD) Cancelled 02/23/21 05:45 Glucose 146 mg/dL (70-100) H 02/23/21 05:45 Glucose Cancelled 02/23/21 05:45 Lactic Acid 1.7 mmol/L (0.5-2.2) 02/22/21 14:09 Calcium 6.9 mg/dL (8.5-10.3) L 02/23/21 05:45 Calcium Cancelled 02/23/21 05:45 Phosphorus 2.8 mg/dL (2.5-4.6) 02/23/21 05:45 Magnesium 2.0 mg/dL (1.7-2.8) 02/23/21 05:45 Total Bilirubin 0.4 mg/dL (0.2-1.0) 02/23/21 05:45 Total Bilirubin 0.6 mg/dL (0.2-1.0) 02/23/21 05:45 Direct Bilirubin 0.1 mg/dL (0.1-0.5) 02/23/21 05:45 AST 31 IU/L (10-42) 02/23/21 05:45 AST 33 IU/L (10-42) 02/23/21 05:45 ALT 42 IU/L (10-60) 02/23/21 05:45 ALT 44 IU/L (10-60) 02/23/21 05:45 Alkaline Phosphatase 43 IU/L (42-121) 02/23/21 05:45 Alkaline Phosphatase 44 IU/L (42-121) 02/23/21 05:45 Troponin I High Sens 48.3 ng/L (2.3-19.7) H* 02/22/21 14:09 Total Protein 4.0 g/dL (6.7-8.2) L 02/23/21 05:45 Total Protein 4.1 g/dL (6.7-8.2) L 02/23/21 05:45 Albumin 1.8 g/dL (3.2-5.5) L 02/23/21 05:45 Albumin 1.8 g/dL (3.2-5.5) L 02/23/21 05:45 Globulin 2.2 g/dL (2.1-4.2) 02/23/21 05:45 Globulin 2.3 g/dL (2.1-4.2) 02/23/21 05:45 Albumin/Globulin Ratio 0.8 (1.0-2.2) L 02/23/21 05:45 Prealbumin 10 mg/dL (18-45) L 02/23/21 05:45 Lipase 17 U/L (22-51) L 02/22/21 06:27 TSH 1.51 uIU/mL (0.34-5.60) 02/23/21 05:45 Urine Color YELLOW 02/22/21 16:10 Urine Clarity CLEAR (CLEAR) 02/22/21 16:10 Urine pH 5.5 PH (5.0-7.5) 02/22/21 16:10 Ur Specific [place] 1.025 (1.002-1.030) 02/22/21 16:10 Urine Protein NEGATIVE mg/dL (NEGATIVE) 02/22/21 16:10 Urine Glucose (UA) NEGATIVE mg/dL (NEGATIVE) 02/22/21 16:10 Urine Ketones NEGATIVE mg/dL (NEGATIVE) 02/22/21 16:10 Urine Occult Blood NEGATIVE (NEGATIVE) 02/22/21 16:10 Urine Nitrite NEGATIVE (NEGATIVE) 02/22/21 16:10 Urine Bilirubin NEGATIVE (NEGATIVE) 02/22/21 16:10 Urine Urobilinogen 0.2 (NORMAL) E.U./dL (NORMAL) 02/22/21 16:10 Ur Leukocyte Esterase NEGATIVE (NEGATIVE) 02/22/21 16:10 Ur Microscopic Review NOT INDICATED 02/22/21 16:10 Urine Culture Comments NOT INDICATED 02/22/21 16:10 Nasal Adenovirus (PCR) NOT DETECTED 02/22/21 08:50 Nasal B. parapertussis DNA (PCR) NOT DETECTED 02/22/21 08:50 Nasal Coronavir 229E PCR NOT DETECTED 02/22/21 08:50 Nasal Coronavir HKU1 PCR NOT DETECTED 02/22/21 08:50 Nasal Coronavir NL63 PCR NOT DETECTED 02/22/21 08:50 Nasal Coronavir OC43 PCR NOT DETECTED 02/22/21 08:50 Nasal Enterovir/Rhinovir PCR NOT DETECTED 02/22/21 08:50 Nasal Influenza B PCR NOT DETECTED 02/22/21 08:50 Nasal Influenza A PCR NOT DETECTED 02/22/21 08:50 Nasal Parainfluen 1 PCR NOT DETECTED 02/22/21 08:50 Nasal Parainfluen 2 PCR NOT DETECTED 02/22/21 08:50 Nasal Parainfluen 3 PCR NOT DETECTED 02/22/21 08:50 Nasal Parainfluen 4 PCR NOT DETECTED 02/22/21 08:50 Nasal RSV (PCR) NOT DETECTED 02/22/21 08:50 Nasal Screen MRSA (PCR) NEGATIVE (NEGATIVE) 02/22/21 11:30 Nasal B.pertussis DNA PCR NOT DETECTED 02/22/21 08:50 Nasal C.pneumoniae (PCR) NOT DETECTED 02/22/21 08:50 David Human Metapneumo PCR NOT DETECTED 02/22/21 08:50 Nasal M.pneumoniae (PCR) NOT DETECTED 02/22/21 08:50 Nasal SARS-CoV-2 (PCR) NOT DETECTED 02/22/21 08:50 Stl C. diff Tox B Gene NEGATIVE (NEGATIVE) 02/22/21 10:15 - Procedures Procedures: Procedures EXCISION OF DUODENUM, ENDO, DIAGN (01/01/21) EXCISION OF ESOPHAGOGASTRIC JUNCTION, ENDO, DIAGN (01/01/21) EXCISION OF STOMACH, PYLORUS, ENDO, DIAGN (01/01/21) TRANSFUSE NONAUT RED BLOOD CELLS IN PERIPH VEIN, PERC (01/16/21) Sepsis Event Note (H) - Sepsis Criteria Sepsis Criteria: Recorded Heart Rate greater than 90 bpm, SBP less than 90 mmHg, Metabolic: lactate > 2 mmol/L
[2021-02-23] MEDS: ACETAMINOPHEN 160 MG/5 ML SUSP UDC NG PRN (17:36)
[2021-02-23] MEDS: ENOXAPARIN 80 MG/0.8 ML SYRINGE SUBQ SCH (20:33)
[2021-02-23] MEDS: ZOLPIDEM 5 MG TABLET PO PRN (20:34)
[2021-02-23] MEDS ORDERED: MIDAZOLAM 2 MG/2 ML VIAL ONE (22:42)
[2021-02-23] MEDS ORDERED: fentaNYL 100 MCG/2 ML VIAL ONE (22:45)
[2021-02-23] MEDS ORDERED: diltiaZEM INJ 5 MG/ML VIAL ONE ×3 (22:48→22:52)
[2021-02-23] MEDS: diltiaZEM INJ 125 MG in DEXTROSE 5% 100 ML IV SCH (22:54)
[2021-02-23] MEDS ORDERED: MIDAZOLAM 2 MG/2 ML VIAL IVP STA (22:54)
[2021-02-23] MEDS ORDERED: diltiaZEM INJ 5 MG/ML VIAL IVP STA ×2 (22:55→22:56)
[2021-02-23] MEDS ORDERED: SODIUM CHLORIDE 0.9% 500 ML IV ONE (22:58)
[2021-02-23 23:16] LABS: CREATININE 0.5 mg/dL (0.6-1.2); PHOSPHORUS 2.7 mg/dL (2.5-4.6); POTASSIUM 3.7 mmol/L (3.5-5.0)
[2021-02-23 23:19] LABS: BASOPHILS % (AUTO) 0.5 %; HCT - HEMATOCRIT 27.2 % (42.0-52.0); HGB - HEMOGLOBIN 8.2 g/dL (14.0-18.0); LYMPHOCYTES % (AUTO) 23.3 %; MEAN CORPUSCULAR HEMOGLOBIN 24.8 pg (27.0-31.0); MEAN CORPUSCULAR HGB CONC 30.1 g/dL (32.0-36.0); MEAN CORPUSCULAR VOLUME 82.2 fL (80.0-94.0); MEAN PLATELET VOLUME 10.7 fL (7.4-11.4); MONOCYTES % (AUTO) 5.2 %; NEUTROPHILS % (AUTO) 69.5 %; PLT - PLATELET COUNT 143 10^3/uL (130-450); RED BLOOD COUNT 3.31 10^6/uL (4.70-6.10); RED CELL DISTRIBUTION WIDTH 20.1 % (12.0-15.0); WHITE BLOOD COUNT 2.1 x10^3/uL (4.8-10.8)
--- NOTE | 2021-02-23 23:19 | PROVIDER PROGRESS NOTE ---
Drop Wire Stringer Note - Drop Wire Stringer Note Drop Wire Stringer Note: Patient went into sustained V. tach with a heart rate as high as 212. His SBP was as low as 60's. He was awake and alert throughout the incident. I talked with him and he was agreeable to being shocked out of that rhythm. As a result he was given 2.5 of Versed and 120 J was applied x1. The subsequent rhythm was atrial fibrillation with heart rate as high as 170s. He was given diltiazem 15 mg IV x1. This was repeated shortly after the first dose. His heart rate improved and fluctuated between 100-130s. He was started on a diltiazem drip at 5 with instructions to titrate to effect. I updated the patient's about this events. She expressed understanding and asked if the patient can be kept alive. I explained that I would apply another shock if he went into V. tach again however that if his heart stopped and/or he became unresponsive or if he was h ypoxic and did not respond to noninvasive measures of oxygenation we will respect his wishes of DNR and not undertake any invasive measures. She expressed understanding.
[2021-02-23 23:26] LABS: ABNORMAL LYMPHS % (MANUAL) 0 %
[2021-02-23 23:30] LABS: CALCIUM 6.5 mg/dL (8.5-10.3)
[2021-02-23 23:55] LABS: BAND NEUTROPHILS % (MANUAL) 4 %; LYMPHOCYTES # (MANUAL) 0.4 10^3/uL (1.5-3.5); LYMPHOCYTES % (MANUAL) 20 %; MONOCYTES # (MANUAL) 0.1 10^3/uL (0.0-1.0); NEUTROPHILS # (MANUAL) 1.6 10^3/uL (1.5-6.6)
[2021-02-23 23:56] LABS: DIFFERENTIAL COMMENT MANUAL DIFFERENTIAL; PLATELET ESTIMATE, MANUAL NORMAL (130-450,000) (NORMAL); PLATELET MORPHOLOGY NORMAL APPEARANCE (NORMAL); WBC MORPHOLOGY (MULTIPLE) NORMAL APPEARANCE (NORMAL)
[2021-02-24] MEDS ORDERED: POTASSIUM CHLOR 20 MEQ/100 ML 20 MEQ/100 ML BAG IV ONE (00:48)
[2021-02-24] MEDS ORDERED: CALCIUM GLUCONATE 1,000 MG in SODIUM CHLORIDE 0.9% 50 ML IV ONE (00:49)
[2021-02-24] MEDS: HYDROmorphone 1 MG/ML CARPUJECT IVP PRN ×8 (01:32→23:39)
[2021-02-24] MEDS: SODIUM CHLORIDE FLUSH 0.9% 10 ML SYRINGE IVP SCH ×5 (01:36→23:33)
[2021-02-24] MEDS: METOPROLOL 5 MG/5 ML VIAL IVP SCH ×3 (02:21→17:04)
[2021-02-24] MEDS: SODIUM CHLORIDE FLUSH 0.9% 10 ML SYRINGE IVP PRN ×5 (02:24→23:39)
[2021-02-24] MEDS: D5NS W/20 MEQ KCL 1,000 ML IV SCH ×3 (03:58→23:41)
[2021-02-24] MEDS: ONDANSETRON 4 MG/2 ML VIAL IVP PRN ×2 (03:58→16:02)
[2021-02-24] MEDS: PIPERACILLIN/TAZOBACTAM 3.375 GM in SODIUM CHLORIDE 0.9% MINIBAG 100 ML IV SCH (05:08)
[2021-02-24 05:30] LABS: VBG PH 7.442 (7.31-7.41)
[2021-02-24 05:31] LABS: BASOPHILS % (AUTO) 0.5 %; EOSINOPHILS % (AUTO) 0.5 %; HCT - HEMATOCRIT 26.3 % (42.0-52.0); LYMPHOCYTES % (AUTO) 24.1 %; MEAN CORPUSCULAR HEMOGLOBIN 24.8 pg (27.0-31.0); MEAN CORPUSCULAR HGB CONC 30.4 g/dL (32.0-36.0); MEAN CORPUSCULAR VOLUME 81.4 fL (80.0-94.0); MEAN PLATELET VOLUME 9.6 fL (7.4-11.4); MONOCYTES % (AUTO) 5.2 %; NEUTROPHILS % (AUTO) 68.8 %; PLT - PLATELET COUNT 133 10^3/uL (130-450); RED BLOOD COUNT 3.23 10^6/uL (4.70-6.10); WHITE BLOOD COUNT 2.1 x10^3/uL (4.8-10.8)
[2021-02-24 05:37] LABS: CALCIUM 6.6 mg/dL (8.5-10.3); CREATININE 0.5 mg/dL (0.6-1.2); POTASSIUM 3.7 mmol/L (3.5-5.0)
[2021-02-24 05:50] LABS: ABNORMAL LYMPHS % (MANUAL) 2 %; ALBUMIN 1.7 g/dL (3.2-5.5); BAND NEUTROPHILS % (MANUAL) 2 %; LYMPHOCYTES # (MANUAL) 0.3 10^3/uL (1.5-3.5); LYMPHOCYTES % (MANUAL) 14 %; MAGNESIUM 1.9 mg/dL (1.7-2.8); NEUTROPHILS # (MANUAL) 1.7 10^3/uL (1.5-6.6); PHOSPHORUS 2.4 mg/dL (2.5-4.6)
[2021-02-24 05:51] LABS: DIFFERENTIAL COMMENT MANUAL DIFFERENTIAL; PLATELET ESTIMATE, MANUAL DECREASED (<130,000) (NORMAL); PLATELET MORPHOLOGY NORMAL APPEARANCE (NORMAL); WBC MORPHOLOGY (MULTIPLE) NORMAL APPEARANCE (NORMAL)
[2021-02-24] MEDS: PANTOPRAZOLE 40 MG VIAL IVP SCH (06:57)
[2021-02-24] MEDS: ACETAMINOPHEN 160 MG/5 ML SUSP UDC NG PRN ×2 (06:58→16:02)
[2021-02-24] MEDS ORDERED: POTASSIUM PHOSPHATE 15 MMOL in SODIUM CHLORIDE 0.9% 250 ML IV ONE (09:00)
[2021-02-24] MEDS: ENOXAPARIN 80 MG/0.8 ML SYRINGE SUBQ SCH ×2 (09:02→20:18)
--- NOTE | 2021-02-24 10:22 | PROVIDER PROGRESS NOTE ---
Assessment/Plan - Problem List (1) Infection due to ESBL-producing Escherichia coli Assessment/Plan: The sputum culture is growing E. coli which is ESBL-producing. We will stop his Zosyn. We will start iv Meropenem (2) Aspiration pneumonia Assessment/Plan: Antibiotic coverage to be changed as above in #1. Continue with O2 supplemental keeping sats over 90%. Mucinex if needed (3) V-tach Assessment/Plan: Went to V. tach at 220 last night. He was alert with this but blood pressure dropped to 60 systolic. He consented to conscious sedation and had an elective cardioversion and went into A. fib. He was then put on Dilts drip for rate control. Will check troponin x2 to determine if an acute [place] was the underlying cause of the VT Will begin amiodarone p.o. for suppression of both A. fib and VT, and stop Cardizem drip. (4) Diarrhea Assessment/Plan: Decreased Continue Imodium prn (5) N&V (nausea and vomiting) Assessment/Plan: Improved wioth prn meds (6) Leukopenia due to antineoplastic chemotherapy Assessment/Plan: Chemotherapy was several days ago and the WBC still dropping Today he had a Zoom meeting with his GI oncologist who said there will be no further chemotherapy because of how badly it is affected him. The patient will now be going home and accepted by hospice in the next few days (7) New onset atrial fibrillation Assessment/Plan: He required elective cardioversion done in the ED which converted him to sinus rhythm. He is on DVTtreatment doses of Lovenox (8) Gastric cancer Assessment/Plan: The prognosis is poor: He and his learned that he has 2 weeks to 2 months to live. He will be going home and accepted by hospice in several days (9) Sepsis Assessment/Plan: Resolved (10) Hypotension Qualifiers: Hypotension type: unspecified hypotension type Qualified Code(s): I95.9 - Hypotension, unspecified Assessment/Plan: Resolved - Current Meds Current Meds: Current Medications Generic Name Dose Route Start Last Admin Trade Name Freq PRN Reason Stop Dose Admin Acetaminophen 640 mg 02/23/21 16:10 02/24/21 06:58 Acetaminophen 160 Mg/5 Ml Susp Udc NG 640 mg Q6HR PRN Administration Pain or Fever > 38C (100.4F) Enoxaparin Sodium 80 mg 02/23/21 21:00 02/24/21 09:02 Enoxaparin 80 Mg/0.8 Ml Syringe SUBQ 80 mg BID SERVANDO Administration Hydromorphone HCl 1 mg 02/22/21 20:05 02/24/21 08:01 Hydromorphone 1 Mg/Ml Carpuject IVP 1 mg Q3HR PRN Administration PAIN Potassium Chloride/Dextrose/Sod Cl 1,000 mls @ 100 mls/hr 02/22/21 11:00 02/24/21 09:00 D5ns W/20 Meq Kcl IV 100 mls/hr .Q10H SERVANDO Infusion Diltiazem HCl 125 mg/ Dextrose 125 mls @ 5 mls/hr 02/23/21 23:00 02/24/21 09:00 IV 10 mg/hr .Q25H SERVANDO 10 mls/hr Titration Protocol 5 MG/HR Potassium Phosphate 15 mmol/ 255 mls @ 63.75 mls/hr 02/24/21 09:00 02/24/21 09:01 Sodium Chloride IV 02/24/21 12:59 63.75 mls/hr ONCE ONE Administration Loperamide HCl 2 mg 02/22/21 17:00 02/22/21 18:05 Loperamide Oral Solution 2 Mg/15 Ml Udc PO 2 mg Q2H PRN Administration Diarrhea Lorazepam 0.5 mg 02/22/21 20:04 02/23/21 22:29 Lorazepam 2 Mg/Ml Vial IVP 0.5 mg Q6H PRN Administration Nausea / Vomiting Metoprolol Tartrate 2.5 mg 02/23/21 09:00 02/24/21 09:01 Metoprolol 5 Mg/5 Ml Vial IVP 2.5 mg Q8H SERVANDO Administration Ondansetron HCl 4 mg 02/22/21 11:00 02/24/21 03:58 Ondansetron 4 Mg/2 Ml Vial IVP 4 mg Q6HR PRN Administration Nausea / Vomiting Pantoprazole Sodium 40 mg 02/23/21 07:00 02/24/21 06:57 Pantoprazole 40 Mg Vial IVP 40 mg QDAC SERVANDO Administration Prochlorperazine Edisylate 10 mg 02/22/21 12:54 02/23/21 09:05 Prochlorperazine 10 Mg/2 Ml Vial IVP 10 mg Q6HR PRN Administration Nausea / Vomiting Scopolamine HBr 1 patch 02/22/21 21:00 02/22/21 20:22 Scopolamine Patch TOP 1 patch Q3D SERVANDO Administration Sodium Chloride 10 ml 02/22/21 17:00 02/24/21 09:02 Sodium Chloride Flush 0.9% 10 Ml Syringe IVP 10 ml 0100,0900,1700 SERVANDO Administration Sodium Chloride 10 ml 02/22/21 11:00 02/24/21 06:57 Sodium Chloride Flush 0.9% 10 Ml Syringe IVP 10 ml PRN PRN Administration NEEDED PER PROVIDER ORDERS Zolpidem Tartrate 10 mg 02/22/21 23:45 02/23/21 20:34 Zolpidem 5 Mg Tablet PO 10 mg QPM PRN Administration Insomnia - Lab Result Fish Bone Diagrams: 02/25/21 04:30 02/25/21 04:30 - Additional Planning My Orders: My Active Orders 02/23/21 11:30 MISC TEST QUEST AMBIENT [REFLAB] Routine 02/23/21 13:00 Piperacillin/Tazobactam [Zosyn] 3.375 gm Sodium Chloride 0.9% Minibag [Normal Saline 0.9% Minibag] 100 ml IV Q8H 02/23/21 13:41 Telemetry- [RC] Q4HR 02/23/21 13:43 Miscellaenous Nursing Order [RC] QSHIFT 02/23/21 16:10 Acetaminophen [Tylenol] 640 mg NG Q6HR PRN 02/23/21 21:00 Enoxaparin [Lovenox] 80 mg SUBQ BID 02/24/21 09:00 Potassium Phosphate 15 mmol Sodium Chloride 0.9% [Normal Saline 0.9%] 250 ml IV ONCE 02/24/21 11:00 Meropenem [Merrem] 1 gm Sodium Chloride 0.9% Minibag [Normal Saline 0.9% Minibag] 100 ml IV Q8H 02/25/21 05:00 BMP - BASIC METABOLIC PANEL [CHEM] DAILYLAB CBC - COMP BLD CT W/AUTO DIFF [HEME] DAILYLAB COMPREHENSIVE METABOLIC PANEL [CHEM] Timed MAGNESIUM [CHEM] Timed PHOSPHORUS [CHEM] Timed 02/26/21 05:00 BMP - BASIC METABOLIC PANEL [CHEM] DAILYLAB CBC - COMP BLD CT W/AUTO DIFF [HEME] DAILYLAB 02/28/21 05:00 COMPREHENSIVE METABOLIC PANEL [CHEM] Timed Subjective - Subjective Patient Reports: Resting Comfortably, Cough (Sputum is mixed with gastric contents upon suctioning using a Yankauer) Objective Vital Signs: Vital Signs - 24 hr 02/23/21 02/23/21 02/23/21 11:00 12:00 13:00 Temperature 37.5 C Heart Rate [ 120 H 121 H 117 H Monitoring electrodes] Respiratory 26 H 27 H 26 H Rate Blood Pressure Blood Pressure 126/78 119/73 123/74 [Right Brachial artery] O2 Saturation 96 95 96 02/23/21 02/23/21 02/23/21 14:00 15:00 16:00 Temperature 37.7 C Heart Rate [ 117 H 115 H 120 H Monitoring electrodes] Respiratory 23 25 H 26 H Rate Blood Pressure Blood Pressure 125/78 114/80 129/80 [Right Brachial artery] O2 Saturation 94 98 95 02/23/21 02/23/21 02/23/21 17:00 17:36 18:00 Temperature Heart Rate [ 114 H 106 H Monitoring electrodes] Respiratory 25 H 22 Rate Blood Pressure 124/79 Blood Pressure 124/79 [Right Brachial artery] O2 Saturation 95 96 02/23/21 02/23/21 02/23/21 18:05 19:00 22:27 Temperature 37.6 C Heart Rate [ 108 H 109 H 107 H Monitoring electrodes] Respiratory 25 H 23 Rate Blood Pressure Blood Pressure 110/85 H 117/74 115/72 [Right Brachial artery] O2 Saturation 95 94 02/23/21 02/23/21 02/23/21 22:35 22:40 22:42 Temperature 36.3 C L Heart Rate [ 215 H 215 H 169 H Monitoring electrodes] Respiratory 22 29 H 30 H Rate Blood Pressure Blood Pressure 65/49 L 68/57 L 123/107 H [Right Brachial artery] O2 Saturation 100 02/23/21 02/23/21 02/23/21 22:44 22:50 22:54 Temperature Heart Rate [ 118 H 132 H Monitoring electrodes] Respiratory Rate Blood Pressure 59/40 L 73/58 L Blood Pressure 93/63 87/59 L [Right Brachial artery] O2 Saturation 02/23/21 02/23/21 02/23/21 22:59 23:00 23:04 Temperature Heart Rate [ 117 H 115 H 112 H Monitoring electrodes] Respiratory 26 H Rate Blood Pressure Blood Pressure 87/60 L 90/59 L 89/58 L [Right Brachial artery] O2 Saturation 94 02/23/21 02/23/21 02/23/21 23:09 23:17 23:22 Temperature Heart Rate [ 113 H 111 H 112 H Monitoring electrodes] Respiratory Rate Blood Pressure Blood Pressure 95/58 L 91/58 L 84/58 L [Right Brachial artery] O2 Saturation 02/23/21 02/23/21 02/23/21 23:27 23:30 23:32 Temperature Heart Rate [ 110 H 107 H Monitoring electrodes] Respiratory 21 Rate Blood Pressure Blood Pressure 92/57 L 90/55 L [Right Brachial artery] O2 Saturation 98 02/23/21 02/24/21 02/24/21 23:47 00:00 00:03 Temperature Heart Rate [ 100 111 H 111 H Monitoring electrodes] Respiratory 27 H Rate Blood Pressure Blood Pressure 100/60 101/65 101/65 [Right Brachial artery] O2 Saturation 94 02/24/21 02/24/21 02/24/21 00:15 00:18 00:30 Temperature Heart Rate [ 104 H 104 H 112 H Monitoring electrodes] Respiratory 27 H Rate Blood Pressure Blood Pressure 114/63 114/63 102/65 [Right Brachial artery] O2 Saturation 94 02/24/21 02/24/21 02/24/21 01:00 01:30 02:00 Temperature Heart Rate [ 111 H 99 115 H Monitoring electrodes] Respiratory 26 H 20 24 Rate Blood Pressure Blood Pressure 102/62 108/66 106/73 [Right Brachial artery] O2 Saturation 96 95 96 02/24/21 02/24/21 02/24/21 02:21 02:23 02:25 Temperature Heart Rate [ 105 H 92 Monitoring electrodes] Respiratory Rate Blood Pressure 106/73 Blood Pressure 116/74 110/74 [Right Brachial artery] O2 Saturation 02/24/21 02/24/21 02/24/21 02:30 02:35 02:40 Temperature Heart Rate [ 96 94 96 Monitoring electrodes] Respiratory Rate Blood Pressure Blood Pressure 106/82 H 106/75 110/70 [Right Brachial artery] O2 Saturation 02/24/21 02/24/21 02/24/21 02:45 03:00 03:15 Temperature 37.1 C Heart Rate [ 98 98 98 Monitoring electrodes] Respiratory 20 Rate Blood Pressure Blood Pressure 109/72 111/71 106/68 [Right Brachial artery] O2 Saturation 96 02/24/21 02/24/21 02/24/21 03:30 04:00 05:00 Temperature Heart Rate [ 99 97 103 H Monitoring electrodes] Respiratory 26 H 28 H Rate Blood Pressure Blood Pressure 109/71 116/73 118/72 [Right Brachial artery] O2 Saturation 97 94 02/24/21 02/24/21 02/24/21 06:00 07:00 08:00 Temperature 37.4 C Heart Rate [ 101 H 96 98 Monitoring electrodes] Respiratory 21 23 26 H Rate Blood Pressure Blood Pressure 101/67 126/72 124/70 [Right Brachial artery] O2 Saturation 95 96 95 02/24/21 09:00 Temperature Heart Rate [ 94 Monitoring electrodes] Respiratory 22 Rate Blood Pressure Blood Pressure 121/76 [Right Brachial artery] O2 Saturation 96 Oxygen O2 Source Nasal cannula I&O (Last 24 Hrs): Intake and Output Totals x24h 02/22/21 02/23/21 02/24/21 23:59 23:59 23:59 Intake Total 5516.667 4992.250 2615.500 Output Total 950 2001 1200 Balance 4566.667 2991.250 1415.500 General: Alert, Oriented x3 HEENT: EOMI, Mucous membr. 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) - Results Results: Laboratory Results WBC 2.1 x10^3/uL (4.8-10.8) L 02/24/21 05:00 RBC 3.23 10^6/uL (4.70-6.10) L 02/24/21 05:00 Hgb 8.0 g/dL (14.0-18.0) L 02/24/21 05:00 Hct 26.3 % (42.0-52.0) L 02/24/21 05:00 MCV 81.4 fL (80.0-94.0) 02/24/21 05:00 MCH 24.8 pg (27.0-31.0) L 02/24/21 05:00 MCHC 30.4 g/dL (32.0-36.0) L 02/24/21 05:00 RDW 20.0 % (12.0-15.0) H 02/24/21 05:00 Plt Count 133 10^3/uL (130-450) 02/24/21 05:00 MPV 9.6 fL (7.4-11.4) 02/24/21 05:00 Neut # (Auto) Not Reportable 02/24/21 05:00 Lymph # (Auto) Not Reportable 02/24/21 05:00 [place] # (Auto) Not Reportable 02/24/21 05:00 Eos # (Auto) Not Reportable 02/24/21 05:00 Baso # (Auto) Not Reportable 02/24/21 05:00 Absolute Nucleated RBC Not Reportable 02/24/21 05:00 Total Counted 100 02/24/21 05:00 Band Neuts % (Manual) 2 % (0-10) 02/24/21 05:00 Reactive Lymphs % (Man) 12 % 02/22/21 06:27 Abnorm Lymph % (Manual) 2 % 02/24/21 05:00 Nucleated RBC % Not Reportable 02/24/21 05:00 Neutrophils # (Manual) 1.7 10^3/uL (1.5-6.6) 02/24/21 05:00 Lymphocytes # (Manual) 0.3 10^3/uL (1.5-3.5) L 02/24/21 05:00 Monocytes # (Manual) 0.0 10^3/uL (0.0-1.0) 02/24/21 05:00 Eosinophils # (Manual) 0.0 10^3/uL (0-0.7) 02/24/21 05:00 Basophils # (Manual) 0.0 10^3/uL (0-0.1) 02/24/21 05:00 Differential Comment MANUAL DIFFERENTIAL 02/24/21 05:00 WBC Morphology NORMAL APPEARANCE (NORMAL) 02/24/21 05:00 Platelet Estimate DECREASED (<130,000) (NORMAL) 02/24/21 05:00 Platelet Morphology NORMAL APPEARANCE (NORMAL) 02/24/21 05:00 RBC Morph Micro Appear 1+ ANISOCYTOSIS (NORMAL) 1+ HYPOCHROMASIA (NORMAL) 02/24/21 05:00 RBC Morph Micro Appear 1+ ANISOCYTOSIS (NORMAL) 1+ HYPOCHROMASIA (NORMAL) 02/24/21 05:00 PT 13.5 secs (9.9-12.6) H 02/23/21 05:45 INR 1.2 (0.8-1.2) 02/23/21 05:45 VBG pH 7.409 (7.31-7.41) 02/24/21 23:53 Ionized Calcium 1.01 mmol/L (1.15-1.33) L 02/24/21 23:53 Sodium 133 mmol/L (135-145) L 02/24/21 05:00 Potassium 3.7 mmol/L (3.5-5.0) 02/24/21 05:00 Chloride 103 mmol/L (101-111) 02/24/21 05:00 Carbon Dioxide 21 mmol/L (21-32) 02/24/21 05:00 Anion Gap 9.0 (6-13) 02/24/21 05:00 BUN 15 mg/dL (6-20) 02/24/21 05:00 Creatinine 0.5 mg/dL (0.6-1.2) L 02/24/21 05:00 Estimated GFR (MDRD) 164 (>89) 02/24/21 05:00 Glucose 140 mg/dL (70-100) H 02/24/21 05:00 Lactic Acid 1.7 mmol/L (0.5-2.2) 02/22/21 14:09 Calcium 6.6 mg/dL (8.5-10.3) L 02/24/21 05:00 Phosphorus 2.4 mg/dL (2.5-4.6) L 02/24/21 05:00 Magnesium 1.9 mg/dL (1.7-2.8) 02/24/21 05:00 Total Bilirubin 0.4 mg/dL (0.2-1.0) 02/23/21 05:45 Total Bilirubin 0.6 mg/dL (0.2-1.0) 02/23/21 05:45 Direct Bilirubin 0.1 mg/dL (0.1-0.5) 02/23/21 05:45 AST 31 IU/L (10-42) 02/23/21 05:45 AST 33 IU/L (10-42) 02/23/21 05:45 ALT 42 IU/L (10-60) 02/23/21 05:45 ALT 44 IU/L (10-60) 02/23/21 05:45 Alkaline Phosphatase 43 IU/L (42-121) 02/23/21 05:45 Alkaline Phosphatase 44 IU/L (42-121) 02/23/21 05:45 Troponin I High Sens 41.3 ng/L (2.3-19.7) H* 02/24/21 05:00 Total Protein 4.0 g/dL (6.7-8.2) L 02/23/21 05:45 Total Protein 4.1 g/dL (6.7-8.2) L 02/23/21 05:45 Albumin 1.7 g/dL (3.2-5.5) L 02/24/21 05:00 Globulin 2.2 g/dL (2.1-4.2) 02/23/21 05:45 Globulin 2.3 g/dL (2.1-4.2) 02/23/21 05:45 Albumin/Globulin Ratio 0.8 (1.0-2.2) L 02/23/21 05:45 Prealbumin 10 mg/dL (18-45) L 02/23/21 05:45 Lipase 17 U/L (22-51) L 02/22/21 06:27 TSH 1.51 uIU/mL (0.34-5.60) 02/23/21 05:45 Urine Color YELLOW 02/22/21 16:10 Urine Clarity CLEAR (CLEAR) 02/22/21 16:10 Urine pH 5.5 PH (5.0-7.5) 02/22/21 16:10 Ur Specific [place] 1.025 (1.002-1.030) 02/22/21 16:10 Urine Protein NEGATIVE mg/dL (NEGATIVE) 02/22/21 16:10 Urine Glucose (UA) NEGATIVE mg/dL (NEGATIVE) 02/22/21 16:10 Urine Ketones NEGATIVE mg/dL (NEGATIVE) 02/22/21 16:10 Urine Occult Blood NEGATIVE (NEGATIVE) 02/22/21 16:10 Urine Nitrite NEGATIVE (NEGATIVE) 02/22/21 16:10 Urine Bilirubin NEGATIVE (NEGATIVE) 02/22/21 16:10 Urine Urobilinogen 0.2 (NORMAL) E.U./dL (NORMAL) 02/22/21 16:10 Ur Leukocyte Esterase NEGATIVE (NEGATIVE) 02/22/21 16:10 Ur Microscopic Review NOT INDICATED 02/22/21 16:10 Urine Culture Comments NOT INDICATED 02/22/21 16:10 Nasal Adenovirus (PCR) NOT DETECTED 02/22/21 08:50 Nasal B. parapertussis DNA (PCR) NOT DETECTED 02/22/21 08:50 Nasal Coronavir 229E PCR NOT DETECTED 02/22/21 08:50 Nasal Coronavir HKU1 PCR NOT DETECTED 02/22/21 08:50 Nasal Coronavir NL63 PCR NOT DETECTED 02/22/21 08:50 Nasal Coronavir OC43 PCR NOT DETECTED 02/22/21 08:50 Nasal Enterovir/Rhinovir PCR NOT DETECTED 02/22/21 08:50 Nasal Influenza B PCR NOT DETECTED 02/22/21 08:50 Nasal Influenza A PCR NOT DETECTED 02/22/21 08:50 Nasal Parainfluen 1 PCR NOT DETECTED 02/22/21 08:50 Nasal Parainfluen 2 PCR NOT DETECTED 02/22/21 08:50 Nasal Parainfluen 3 PCR NOT DETECTED 02/22/21 08:50 Nasal Parainfluen 4 PCR NOT DETECTED 02/22/21 08:50 Nasal RSV (PCR) NOT DETECTED 02/22/21 08:50 Nasal Screen MRSA (PCR) NEGATIVE (NEGATIVE) 02/22/21 11:30 Nasal B.pertussis DNA PCR NOT DETECTED 02/22/21 08:50 Nasal C.pneumoniae (PCR) NOT DETECTED 02/22/21 08:50 David Human Metapneumo PCR NOT DETECTED 02/22/21 08:50 Nasal M.pneumoniae (PCR) NOT DETECTED 02/22/21 08:50 Nasal SARS-CoV-2 (PCR) NOT DETECTED 02/22/21 08:50 Stl C. diff Tox B Gene NEGATIVE (NEGATIVE) 02/22/21 10:15 - Procedures Procedures: Procedures EXCISION OF DUODENUM, ENDO, DIAGN (01/01/21) EXCISION OF ESOPHAGOGASTRIC JUNCTION, ENDO, DIAGN (01/01/21) EXCISION OF STOMACH, PYLORUS, ENDO, DIAGN (01/01/21) TRANSFUSE NONAUT RED BLOOD CELLS IN PERIPH VEIN, PERC (01/16/21) Sepsis Event Note (H) - Sepsis Criteria Sepsis Criteria: Recorded Heart Rate greater than 90 bpm, SBP less than 90 mmHg, Metabolic: lactate > 2 mmol/L
[2021-02-24] MEDS ORDERED: diltiaZEM INJ 5 MG/ML VIAL ONE (10:57)
[2021-02-24] MEDS: MEROPENEM 1 GM in SODIUM CHLORIDE 0.9% MINIBAG 100 ML IV SCH ×2 (11:14→19:02)
[2021-02-24] MEDS: LORazepam 2 MG/ML VIAL IVP PRN ×2 (11:18→20:59)
[2021-02-24] MEDS: diltiaZEM INJ 125 MG in DEXTROSE 5% 100 ML IV SCH (11:27)
[2021-02-24 14:29] LABS: BUN - BLOOD UREA NITROGEN 14 mg/dL (6-20); CALCIUM 6.8 mg/dL (8.5-10.3); CARBON DIOXIDE - CO2 23 mmol/L (21-32); CHLORIDE 105 mmol/L (101-111); CREATININE 0.4 mg/dL (0.6-1.2); GFR - MDRD 213 (>89); GLUCOSE 125 mg/dL (70-100); IONIZED CALCIUM IF INDICATED YES; SODIUM 135 mmol/L (135-145)
[2021-02-24 14:31] LABS: CALCIUM, IONIZED 0.98 mmol/L (1.15-1.33); VBG PH 7.457 (7.31-7.41)
[2021-02-24] MEDS ORDERED: MAGNESIUM SULFATE 2 GRAM 2 GM/50 ML BAG IV ONE (15:18)
[2021-02-24] MEDS: PROCHLORPERAZINE 10 MG/2 ML VIAL IVP PRN (19:02)
[2021-02-24] MEDS: ZOLPIDEM 5 MG TABLET PO PRN (21:04)
[2021-02-24] MEDS ORDERED: METOPROLOL 5 MG/5 ML VIAL IVP STA (23:19)
[2021-02-25] MEDS: METOPROLOL 5 MG/5 ML VIAL IVP SCH ×3 (01:16→18:02)
[2021-02-25] MEDS: diltiaZEM INJ 125 MG in DEXTROSE 5% 100 ML IV SCH ×2 (01:17→09:51)
[2021-02-25] MEDS: SODIUM CHLORIDE FLUSH 0.9% 10 ML SYRINGE IVP PRN ×3 (01:21→06:54)
[2021-02-25] MEDS: ACETAMINOPHEN 160 MG/5 ML SUSP UDC NG PRN (01:55)
[2021-02-25] MEDS ORDERED: SCOPOLAMINE PATCH TOP SCH (02:00)
[2021-02-25] MEDS: HYDROmorphone 1 MG/ML CARPUJECT IVP PRN ×7 (02:10→20:54)
[2021-02-25] MEDS: PROCHLORPERAZINE 10 MG/2 ML VIAL IVP PRN ×2 (02:45→14:59)
[2021-02-25] MEDS: MEROPENEM 1 GM in SODIUM CHLORIDE 0.9% MINIBAG 100 ML IV SCH ×3 (02:46→18:03)
[2021-02-25] MEDS: LORazepam 2 MG/ML VIAL IVP PRN (04:39)
[2021-02-25 05:29] LABS: BASOPHILS % (AUTO) 0.4 %; HCT - HEMATOCRIT 29.4 % (42.0-52.0); HGB - HEMOGLOBIN 8.8 g/dL (14.0-18.0); LYMPHOCYTES % (AUTO) 52.2 %; MEAN CORPUSCULAR HEMOGLOBIN 24.4 pg (27.0-31.0); MEAN CORPUSCULAR HGB CONC 29.9 g/dL (32.0-36.0); MEAN CORPUSCULAR VOLUME 81.4 fL (80.0-94.0); MEAN PLATELET VOLUME 10.7 fL (7.4-11.4); MONOCYTES % (AUTO) 5.9 %; NEUTROPHILS % (AUTO) 41.1 %; PLT - PLATELET COUNT 162 10^3/uL (130-450); RED BLOOD COUNT 3.61 10^6/uL (4.70-6.10); WHITE BLOOD COUNT 2.7 x10^3/uL (4.8-10.8)
[2021-02-25 05:56] LABS: ALBUMIN 1.8 g/dL (3.2-5.5); ALBUMIN/GLOBULIN RATIO 0.8 (1.0-2.2); BILIRUBIN,TOTAL 0.4 mg/dL (0.2-1.0); CREATININE 0.6 mg/dL (0.6-1.2); PHOSPHORUS 2.6 mg/dL (2.5-4.6); POTASSIUM 4.5 mmol/L (3.5-5.0)
[2021-02-25 05:57] LABS: CALCIUM 6.4 mg/dL (8.5-10.3)
[2021-02-25 06:06] LABS: ABNORMAL LYMPHS % (MANUAL) 14 %; BAND NEUTROPHILS % (MANUAL) 3 %; LYMPHOCYTES # (MANUAL) 1.2 10^3/uL (1.5-3.5); LYMPHOCYTES % (MANUAL) 29 %; MONOCYTES # (MANUAL) 0.2 10^3/uL (0.0-1.0); NEUTROPHILS # (MANUAL) 1.4 10^3/uL (1.5-6.6)
[2021-02-25] MEDS ORDERED: CALCIUM GLUCONATE 1,000 MG in SODIUM CHLORIDE 0.9% 50 ML IV ONE (06:06)
[2021-02-25 06:07] LABS: DIFFERENTIAL COMMENT MANUAL DIFFERENTIAL; PLATELET ESTIMATE, MANUAL NORMAL (130-450,000) (NORMAL); PLATELET MORPHOLOGY NORMAL APPEARANCE (NORMAL); WBC MORPHOLOGY (MULTIPLE) NORMAL APPEARANCE (NORMAL)
[2021-02-25] MEDS ORDERED: CALCIUM GLUCONATE 1000 MG/10 ML VIAL ONE (06:49)
[2021-02-25] MEDS: PANTOPRAZOLE 40 MG VIAL IVP SCH (06:54)
[2021-02-25 07:02] LABS: CALCIUM, IONIZED 1.01 mmol/L (1.15-1.33); VBG PH 7.409 (7.31-7.41)
[2021-02-25] MEDS: ONDANSETRON 4 MG/2 ML VIAL IVP PRN (07:58)
[2021-02-25] MEDS: D5NS W/20 MEQ KCL 1,000 ML IV SCH (08:02)
[2021-02-25] MEDS: ENOXAPARIN 80 MG/0.8 ML SYRINGE SUBQ SCH ×2 (08:03→21:04)
[2021-02-25] MEDS ORDERED: MORPHINE 2 MG/ML CARPUJECT IVP PRN (08:34)
[2021-02-25] MEDS: SODIUM CHLORIDE FLUSH 0.9% 10 ML SYRINGE IVP SCH ×2 (09:33→18:03)
[2021-02-25] MEDS ORDERED: oxyCODONE 5 MG TABLET PO PRN (11:54)
[2021-02-25] MEDS ORDERED: LORazepam 0.5 MG TABLET PO PRN (11:54)
[2021-02-25] MEDS ORDERED: FUROSEMIDE 20 MG/2 ML VIAL IVP STA (11:59)
[2021-02-25] MEDS ORDERED: D5NS W/20 MEQ KCL 1,000 ML IV SCH (11:59)
[2021-02-25] MEDS ORDERED: CITALOPRAM 10 MG TABLET PO SCH (12:00)
[2021-02-25] MEDS ORDERED: fentaNYL 25 MCG PATCH TOP SCH (12:00)
[2021-02-25] MEDS ORDERED: LIDOCAINE 2% URO-JET 5 ML SYRINGE UR ONE (12:00)
[2021-02-25] MEDS ORDERED: HYOSCYAMINE SL 0.125 MG TABLET SL PRN (12:01)
[2021-02-25] MEDS ORDERED: ZOLPIDEM 5 MG TABLET PO PRN (12:03)
--- NOTE | 2021-02-25 12:05 | PROVIDER PROGRESS NOTE ---
Assessment/Plan - Problem List (1) Acute and chronic respiratory failure with hypoxia Assessment/Plan: He was desaturating at admission, started on O2 per n.c. Since last night he is rhoncherous and O2 suppl at 15L today. Continue with treatment of aspiration pneumonia (since stomach contents are being suctioned from the back of his mouth, he probably has continued aspiration because of his gastric obstruction). We will begin morphine IV as needed dyspnea. Continue with scopolamine patch for secretions and will add hyoscyamine also for secretions. Continue with supplemental oxygen. Will decrease his IV fluids from 75/h to TKO and give a dose of IV Lasix x1. He will eventually be going home then will begin under the care of Hospice. He is not comfortable and needs adjustment of meds to manage his secretions and air hunger. He will need O2 cylinder at home and will need a Yankauer tip and suctio n machine (due to his gastric obstruction caused by his cancer). Possible discharge home tomorrow, eventual Hospice care planned. They have a hospital bed at home (delivered yesterday) but no oxygen tank or suction machine was delivered yet. [facility] RN to arrange for that. I spoke to Dr Cuba (Director of Hospice) today. (2) Infection due to ESBL-producing Escherichia coli Assessment/Plan: Continueing new merram iv, since yesterday's ESBL sputum culture was resulted (3) Aspiration pneumonia Assessment/Plan: Continue with meropenem. Unfortunately he cannot get Mucinex. Physical suctioning of pharynx has to be done. (4) V-tach Assessment/Plan: Two nights ago he went into V. tach at a rate of 220 and he was awake with this despite a low BP. He did wish to be electrically cardioverted out of VTach, which was successful and put him back in A. fib. Continue with IV metoprolol today and stop it at midnight Will start amiodarone loading 400 mg per j tube bid, to suppress V. tach (5) New onset atrial fibrillation Assessment/Plan: When he presented in the ED he went into new onset of A. fib with RVR and he was electively cardioverted out of it. After the V. tach he went back into the A. fib. He is needed IV Cardizem for rate control. He is on Lovenox 80 twice daily for DVT history which is also treating stroke prevention. Will taper the IV Cardizem to off today Continue with IV metoprolol today and stop it at midnight Will start Amiodarone loading today, at 400 mg per j tube bid, to control Afib rate. (6) Diarrhea Assessment/Plan: This was likely caused by his chemotherapy Improved with prn Imodium. (7) N&V (nausea and vomiting) Assessment/Plan: This was likely caused by his chemotherapy. Improved with prn Ativan, Compazine, Zofran and scopolamine patch (8) Leukopenia due to antineoplastic chemotherapy Assessment/Plan: White blood count was yesterday 2.18, today 2.7. He will no longer be getting chemotherapy per his GI oncologist ([employer] telemedicine meeting several days ago) (9) Gastric cancer Assessment/Plan: The mass caused complete obstruction of his GI tract. He received a jejunostomy tube and was getting feedings through this at home. Since admission, when he had diarrhea, we changed the type of nutrition he gets through the J-tube which is not hyperosmolar. We will go home with this newly started feeding solution. Possible discharge tomorrow (10) Sepsis Assessment/Plan: Resolved (11) Hypotension Qualifiers: Hypotension type: unspecified hypotension type Qualified Code(s): I95.9 - Hypotension, unspecified Assessment/Plan: Resolved with iv hydration - Current Meds Current Meds: Current Medications Generic Name Dose Route Start Last Admin Trade Name Freq PRN Reason Stop Dose Admin Acetaminophen 640 mg 02/23/21 16:10 02/25/21 01:55 Acetaminophen 160 Mg/5 Ml Susp Udc NG 640 mg Q6HR PRN Administration Pain or Fever > 38C (100.4F) Enoxaparin Sodium 80 mg 02/23/21 21:00 02/25/21 08:03 Enoxaparin 80 Mg/0.8 Ml Syringe SUBQ 80 mg BID SERVANDO Administration Hydromorphone HCl 1 mg 02/22/21 20:05 02/25/21 11:14 Hydromorphone 1 Mg/Ml Carpuject IVP 1 mg Q3HR PRN Administration PAIN Diltiazem HCl 125 mg/ Dextrose 125 mls @ 5 mls/hr 02/23/21 23:00 02/25/21 11:00 IV 15 mg/hr .Q25H SERVANDO 15 mls/hr Titration Protocol 5 MG/HR Meropenem 1 gm/ Sodium 100 mls @ 200 mls/hr 02/24/21 11:00 02/25/21 11:13 Chloride IV 200 mls/hr Q8H SERVANDO Administration Loperamide HCl 2 mg 02/22/21 17:00 02/22/21 18:05 Loperamide Oral Solution 2 Mg/15 Ml Udc PO 2 mg Q2H PRN Administration Diarrhea Lorazepam 0.5 mg 02/22/21 20:04 02/25/21 04:39 Lorazepam 2 Mg/Ml Vial IVP 0.5 mg Q6H PRN Administration Nausea / Vomiting Metoprolol Tartrate 2.5 mg 02/23/21 09:00 02/25/21 08:02 Metoprolol 5 Mg/5 Ml Vial IVP 02/26/21 00:01 2.5 mg Q8H SERVANDO Administration Morphine Sulfate 2 mg 02/25/21 08:34 02/25/21 09:34 Morphine 2 Mg/Ml Carpuject IVP 2 mg Q2HR PRN Administration Dyspnea Ondansetron HCl 4 mg 02/22/21 11:00 02/25/21 07:58 Ondansetron 4 Mg/2 Ml Vial IVP 4 mg Q6HR PRN Administration Nausea / Vomiting Pantoprazole Sodium 40 mg 02/23/21 07:00 02/25/21 06:54 Pantoprazole 40 Mg Vial IVP 40 mg QDAC SERVANDO Administration Prochlorperazine Edisylate 10 mg 02/22/21 12:54 02/25/21 02:45 Prochlorperazine 10 Mg/2 Ml Vial IVP 10 mg Q6HR PRN Administration Nausea / Vomiting Scopolamine HBr 1 patch 02/25/21 02:00 02/25/21 01:17 Scopolamine Patch TOP 1 patch Q3D@0900 SERVANDO Administration Sodium Chloride 10 ml 02/22/21 17:00 02/25/21 09:33 Sodium Chloride Flush 0.9% 10 Ml Syringe IVP 10 ml 0100,0900,1700 SERVANDO Administration Sodium Chloride 10 ml 02/22/21 11:00 02/25/21 06:54 Sodium Chloride Flush 0.9% 10 Ml Syringe IVP 10 ml PRN PRN Administration NEEDED PER PROVIDER ORDERS Zolpidem Tartrate 10 mg 02/22/21 23:45 02/24/21 21:04 Zolpidem 5 Mg Tablet PO 10 mg QPM PRN Administration Insomnia - Lab Result Fish Bone Diagrams: 02/25/21 04:30 02/25/21 04:30 - Additional Planning My Orders: My Active Orders 02/25/21 08:34 Morphine Inj (Carpuject) [Morphine (Carpuject)] 2 mg IVP Q2HR PRN 02/25/21 11:54 LORazepam [Ativan] 0.5 mg PO TID PRN oxyCODONE [Roxicodone] 10 mg PO 5XD PRN 02/25/21 11:54 Zolpidem Tartrate [Ambien] 10 mg PO QPM PRN 02/25/21 11:56 Miscellaenous Nursing Order [RC] ONCE 02/25/21 11:59 Singh Insertion [RC] QSHIFT 02/25/21 11:59 D5ns W/20 Meq KCl 1,000 ml IV 40 mls/hr 02/25/21 12:00 Singh Continuation and Care [RC] QSHIFT Amiodarone [Pacerone] 400 mg PO BID Citalopram [CeleXA] 10 mg PO DAILY fentaNYL 25 MCG PATCH [Duragesic] 1 patch TOP Q3D 02/25/21 12:01 Hyoscyamine [Levsin] 0.125 mg SL AC PRN 02/25/21 18:00 oxyCODONE ORAL SOLN [Roxicodone Oral Soln] 10 mg PO Q4HR PRN 02/26/21 05:00 BMP - BASIC METABOLIC PANEL [CHEM] DAILYLAB CBC - COMP BLD CT W/AUTO DIFF [HEME] DAILYLAB 02/28/21 05:00 COMPREHENSIVE METABOLIC PANEL [CHEM] Timed Subjective - Subjective Patient Reports: Shortness of Breath Nursing Reports: Cough (Needing higher supplemental O2 since overnight), Other (Rhonchi and suctioning phlegm and gastric contents via Yankauer) Objective Vital Signs: Vital Signs - 24 hr 02/24/21 02/24/21 02/24/21 13:00 14:00 15:00 Temperature Heart Rate [ 100 99 102 H Monitoring electrodes] Respiratory 23 24 22 Rate Blood Pressure Blood Pressure 115/72 122/78 121/72 [Right Brachial artery] O2 Saturation 95 95 96 02/24/21 02/24/21 02/24/21 16:00 17:00 17:04 Temperature 37.3 C Heart Rate [ 103 H 102 H Monitoring electrodes] Respiratory 25 H 23 Rate Blood Pressure 120/73 Blood Pressure 132/80 H 120/73 [Right Brachial artery] O2 Saturation 96 95 02/24/21 02/24/21 02/24/21 18:00 19:00 19:16 Temperature 37.5 C Heart Rate [ 94 101 H Monitoring electrodes] Respiratory 21 22 Rate Blood Pressure Blood Pressure [Right Brachial artery] O2 Saturation 96 94 02/24/21 02/24/21 02/24/21 21:00 21:05 21:10 Temperature Heart Rate [ 111 H 108 H 113 H Monitoring electrodes] Respiratory 21 Rate Blood Pressure Blood Pressure 116/78 112/74 125/77 [Right Brachial artery] O2 Saturation 92 02/24/21 02/24/21 02/24/21 21:15 21:30 21:45 Temperature Heart Rate [ 110 H 119 H 121 H Monitoring electrodes] Respiratory 21 Rate Blood Pressure Blood Pressure 122/70 143/120 H 120/100 H [Right Brachial artery] O2 Saturation 91 L 02/24/21 02/24/21 02/24/21 22:00 22:10 22:16 Temperature Heart Rate [ 125 H Monitoring electrodes] Respiratory 24 26 H 31 H Rate Blood Pressure Blood Pressure 128/85 H [Right Brachial artery] O2 Saturation 87 L 85 L 90 L 02/24/21 02/24/21 02/24/21 23:00 23:30 23:33 Temperature Heart Rate [ 124 H 140 H Monitoring electrodes] Respiratory 29 H 33 H Rate Blood Pressure 141/69 H Blood Pressure 118/74 148/81 H [Right Brachial artery] O2 Saturation 90 L 85 L 02/24/21 02/24/21 02/24/21 23:35 23:40 23:45 Temperature Heart Rate [ 109 H 106 H 105 H Monitoring electrodes] Respiratory 31 H Rate Blood Pressure Blood Pressure 105/78 102/76 109/74 [Right Brachial artery] O2 Saturation 90 L 02/24/21 02/24/21 02/25/21 23:50 23:55 00:00 Temperature 36.7 C Heart Rate [ 104 H 105 H 107 H Monitoring electrodes] Respiratory 26 H Rate Blood Pressure Blood Pressure 115/76 102/76 112/75 [Right Brachial artery] O2 Saturation 90 L 02/25/21 02/25/21 02/25/21 00:17 01:00 01:15 Temperature Heart Rate [ 117 H 115 H 120 H Monitoring electrodes] Respiratory 28 H 26 H Rate Blood Pressure Blood Pressure 100/63 106/64 [Right Brachial artery] O2 Saturation 90 L 93 02/25/21 02/25/21 02/25/21 01:16 01:21 01:25 Temperature Heart Rate [ 111 H Monitoring electrodes] Respiratory 27 H Rate Blood Pressure 106/64 Blood Pressure 108/76 [Right Brachial artery] O2 Saturation 95 02/25/21 02/25/21 02/25/21 01:30 01:45 02:00 Temperature Heart Rate [ 111 H 126 H 119 H Monitoring electrodes] Respiratory 32 H Rate Blood Pressure Blood Pressure 108/62 111/75 114/71 [Right Brachial artery] O2 Saturation 92 02/25/21 02/25/21 02/25/21 02:09 02:54 03:00 Temperature 36.9 C Heart Rate [ 123 H Monitoring electrodes] Respiratory 28 H 29 H Rate Blood Pressure Blood Pressure 103/74 [Right Brachial artery] O2 Saturation 94 92 02/25/21 02/25/21 02/25/21 04:00 05:00 05:49 Temperature Heart Rate [ 121 H 128 H Monitoring electrodes] Respiratory 26 H 27 H 30 H Rate Blood Pressure Blood Pressure 104/77 134/73 H [Right Brachial artery] O2 Saturation 89 L 86 L 89 L 02/25/21 02/25/21 02/25/21 06:00 07:00 08:00 Temperature 37.4 C Heart Rate [ 116 H 125 H 116 H Monitoring electrodes] Respiratory 33 H 36 H 30 H Rate Blood Pressure Blood Pressure 92/62 122/76 124/77 [Right Brachial artery] O2 Saturation 88 L 89 L 91 L 02/25/21 02/25/21 02/25/21 09:00 10:00 11:00 Temperature Heart Rate [ 105 H 108 H 103 H Monitoring electrodes] Respiratory 29 H 26 H 28 H Rate Blood Pressure Blood Pressure 100/71 107/65 97/64 [Right Brachial artery] O2 Saturation 91 L 95 94 Oxygen O2 Source Oxymizer I&O (Last 24 Hrs): Intake and Output Totals x24h 02/23/21 02/24/21 02/25/21 23:59 23:59 23:59 Intake Total 4992.250 6637.832 2630.167 Output Total 2000 1801 515 Balance 2991.250 4836.832 2115.167 General: Alert, Mild distress (Kicking feet to lie flat), Other ((EXAM DONE REMOTELY)) HEENT: Mucous membr. moist/pink Neck: Supple, No JVD Neuro: Alert Cardiovascular: No murmurs, Other (Irreg irreg) Respiratory: Rales, Rhonchi Abdomen: Soft, Other (Has J tube) Extremities: No edema, Other (Pale) - Results Results: Laboratory Results WBC 2.7 x10^3/uL (4.8-10.8) L 02/25/21 04:30 RBC 3.61 10^6/uL (4.70-6.10) L 02/25/21 04:30 Hgb 8.8 g/dL (14.0-18.0) L 02/25/21 04:30 Hct 29.4 % (42.0-52.0) L 02/25/21 04:30 MCV 81.4 fL (80.0-94.0) 02/25/21 04:30 MCH 24.4 pg (27.0-31.0) L 02/25/21 04:30 MCHC 29.9 g/dL (32.0-36.0) L 02/25/21 04:30 RDW 20.0 % (12.0-15.0) H 02/25/21 04:30 Plt Count 162 10^3/uL (130-450) 02/25/21 04:30 MPV 10.7 fL (7.4-11.4) 02/25/21 04:30 Neut # (Auto) Not Reportable 02/25/21 04:30 Lymph # (Auto) Not Reportable 02/25/21 04:30 [place] # (Auto) Not Reportable 02/25/21 04:30 Eos # (Auto) Not Reportable 02/25/21 04:30 Baso # (Auto) Not Reportable 02/25/21 04:30 Absolute Nucleated RBC Not Reportable 02/25/21 04:30 Total Counted 100 02/25/21 04:30 Band Neuts % (Manual) 3 % (0-10) 02/25/21 04:30 Reactive Lymphs % (Man) 12 % 02/22/21 06:27 Abnorm Lymph % (Manual) 14 % 02/25/21 04:30 Nucleated RBC % Not Reportable 02/25/21 04:30 Neutrophils # (Manual) 1.4 10^3/uL (1.5-6.6) L 02/25/21 04:30 Lymphocytes # (Manual) 1.2 10^3/uL (1.5-3.5) L 02/25/21 04:30 Monocytes # (Manual) 0.2 10^3/uL (0.0-1.0) 02/25/21 04:30 Eosinophils # (Manual) 0.0 10^3/uL (0-0.7) 02/25/21 04:30 Basophils # (Manual) 0.0 10^3/uL (0-0.1) 02/25/21 04:30 Differential Comment MANUAL DIFFERENTIAL 02/25/21 04:30 WBC Morphology NORMAL APPEARANCE (NORMAL) 02/25/21 04:30 Platelet Estimate NORMAL (130-450,000) (NORMAL) 02/25/21 04:30 Platelet Morphology NORMAL APPEARANCE (NORMAL) 02/25/21 04:30 RBC Morph Micro Appear 2+ ANISOCYTOSIS (NORMAL) 1+ HYPOCHROMASIA (NORMAL) 02/25/21 04:30 RBC Morph Micro Appear 2+ ANISOCYTOSIS (NORMAL) 1+ HYPOCHROMASIA (NORMAL) 02/25/21 04:30 PT 13.5 secs (9.9-12.6) H 02/23/21 05:45 INR 1.2 (0.8-1.2) 02/23/21 05:45 VBG pH Cancelled 02/24/21 23:53 Ionized Calcium Cancelled 02/24/21 23:53 Sodium 134 mmol/L (135-145) L 02/25/21 04:30 Potassium 4.5 mmol/L (3.5-5.0) 02/25/21 04:30 Chloride 105 mmol/L (101-111) 02/25/21 04:30 Carbon Dioxide 20 mmol/L (21-32) L 02/25/21 04:30 Anion Gap 9.0 (6-13) 02/25/21 04:30 BUN 19 mg/dL (6-20) 02/25/21 04:30 Creatinine 0.6 mg/dL (0.6-1.2) 02/25/21 04:30 Estimated GFR (MDRD) 133 (>89) 02/25/21 04:30 Glucose 205 mg/dL (70-100) H 02/25/21 04:30 Lactic Acid 1.7 mmol/L (0.5-2.2) 02/22/21 14:09 Calcium 6.4 mg/dL (8.5-10.3) L* 02/25/21 04:30 Ionized Calcium YES 02/24/21 14:13 Phosphorus 2.6 mg/dL (2.5-4.6) 02/25/21 04:30 Magnesium 2.0 mg/dL (1.7-2.8) 02/25/21 04:30 Total Bilirubin 0.4 mg/dL (0.2-1.0) 02/25/21 04:30 Direct Bilirubin 0.1 mg/dL (0.1-0.5) 02/23/21 05:45 AST 38 IU/L (10-42) 02/25/21 04:30 ALT 59 IU/L (10-60) 02/25/21 04:30 Alkaline Phosphatase 61 IU/L (42-121) 02/25/21 04:30 Troponin I High Sens 41.3 ng/L (2.3-19.7) H* 02/24/21 05:00 Total Protein 4.0 g/dL (6.7-8.2) L 02/25/21 04:30 Albumin 1.8 g/dL (3.2-5.5) L 02/25/21 04:30 Globulin 2.2 g/dL (2.1-4.2) 02/25/21 04:30 Albumin/Globulin Ratio 0.8 (1.0-2.2) L 02/25/21 04:30 Prealbumin 10 mg/dL (18-45) L 02/23/21 05:45 Lipase 17 U/L (22-51) L 02/22/21 06:27 TSH 1.51 uIU/mL (0.34-5.60) 02/23/21 05:45 Urine Color YELLOW 02/22/21 16:10 Urine Clarity CLEAR (CLEAR) 02/22/21 16:10 Urine pH 5.5 PH (5.0-7.5) 02/22/21 16:10 Ur Specific [place] 1.025 (1.002-1.030) 02/22/21 16:10 Urine Protein NEGATIVE mg/dL (NEGATIVE) 02/22/21 16:10 Urine Glucose (UA) NEGATIVE mg/dL (NEGATIVE) 02/22/21 16:10 Urine Ketones NEGATIVE mg/dL (NEGATIVE) 02/22/21 16:10 Urine Occult Blood NEGATIVE (NEGATIVE) 02/22/21 16:10 Urine Nitrite NEGATIVE (NEGATIVE) 02/22/21 16:10 Urine Bilirubin NEGATIVE (NEGATIVE) 02/22/21 16:10 Urine Urobilinogen 0.2 (NORMAL) E.U./dL (NORMAL) 02/22/21 16:10 Ur Leukocyte Esterase NEGATIVE (NEGATIVE) 02/22/21 16:10 Ur Microscopic Review NOT INDICATED 02/22/21 16:10 Urine Culture Comments NOT INDICATED 02/22/21 16:10 Nasal Adenovirus (PCR) NOT DETECTED 02/22/21 08:50 Nasal B. parapertussis DNA (PCR) NOT DETECTED 02/22/21 08:50 Nasal Coronavir 229E PCR NOT DETECTED 02/22/21 08:50 Nasal Coronavir HKU1 PCR NOT DETECTED 02/22/21 08:50 Nasal Coronavir NL63 PCR NOT DETECTED 02/22/21 08:50 Nasal Coronavir OC43 PCR NOT DETECTED 02/22/21 08:50 Nasal Enterovir/Rhinovir PCR NOT DETECTED 02/22/21 08:50 Nasal Influenza B PCR NOT DETECTED 02/22/21 08:50 Nasal Influenza A PCR NOT DETECTED 02/22/21 08:50 Nasal Parainfluen 1 PCR NOT DETECTED 02/22/21 08:50 Nasal Parainfluen 2 PCR NOT DETECTED 02/22/21 08:50 Nasal Parainfluen 3 PCR NOT DETECTED 02/22/21 08:50 Nasal Parainfluen 4 PCR NOT DETECTED 02/22/21 08:50 Nasal RSV (PCR) NOT DETECTED 02/22/21 08:50 Nasal Screen MRSA (PCR) NEGATIVE (NEGATIVE) 02/22/21 11:30 Nasal B.pertussis DNA PCR NOT DETECTED 02/22/21 08:50 Nasal C.pneumoniae (PCR) NOT DETECTED 02/22/21 08:50 David Human Metapneumo PCR NOT DETECTED 02/22/21 08:50 Nasal M.pneumoniae (PCR) NOT DETECTED 02/22/21 08:50 Nasal SARS-CoV-2 (PCR) NOT DETECTED 02/22/21 08:50 Stl C. diff Tox B Gene NEGATIVE (NEGATIVE) 02/22/21 10:15 - Procedures Procedures: Procedures EXCISION OF DUODENUM, ENDO, DIAGN (01/01/21) EXCISION OF ESOPHAGOGASTRIC JUNCTION, ENDO, DIAGN (01/01/21) EXCISION OF STOMACH, PYLORUS, ENDO, DIAGN (01/01/21) TRANSFUSE NONAUT RED BLOOD CELLS IN PERIPH VEIN, PERC (01/16/21) Sepsis Event Note (H) - Sepsis Criteria Sepsis Criteria: Recorded Heart Rate greater than 90 bpm, SBP less than 90 mmHg, Metabolic: lactate > 2 mmol/L
[2021-02-25] MEDS: AMIODARONE 200 MG TABLET PO SCH ×2 (12:14→21:04)
[2021-02-25] MEDS: oxyCODONE 10 MG/0.5 ML SYRINGE PO PRN (19:34)
[2021-02-25] MEDS: ZOLPIDEM 5 MG TABLET PO PRN (21:50)
[2021-02-26] MEDS: HYDROmorphone 1 MG/ML CARPUJECT IVP PRN ×2 (00:09→06:41)
[2021-02-26] MEDS: SODIUM CHLORIDE FLUSH 0.9% 10 ML SYRINGE IVP SCH (00:09)
[2021-02-26] MEDS: LORazepam 2 MG/ML VIAL IVP PRN (02:23)
[2021-02-26] MEDS: oxyCODONE 10 MG/0.5 ML SYRINGE PO PRN (02:35)
[2021-02-26] MEDS: MEROPENEM 1 GM in SODIUM CHLORIDE 0.9% MINIBAG 100 ML IV SCH (02:42)
[2021-02-26 05:44] LABS: BASOPHILS % (AUTO) 0.6 %; EOSINOPHILS % (AUTO) 0.6 %; HCT - HEMATOCRIT 28.1 % (42.0-52.0); HGB - HEMOGLOBIN 8.5 g/dL (14.0-18.0); LYMPHOCYTES % (AUTO) 64.8 %; MEAN CORPUSCULAR HEMOGLOBIN 24.4 pg (27.0-31.0); MEAN CORPUSCULAR HGB CONC 30.2 g/dL (32.0-36.0); MEAN CORPUSCULAR VOLUME 80.7 fL (80.0-94.0); MEAN PLATELET VOLUME 10.3 fL (7.4-11.4); MONOCYTES % (AUTO) 7.7 %; NEUTROPHILS % (AUTO) 26.3 %; PLT - PLATELET COUNT 171 10^3/uL (130-450); RED BLOOD COUNT 3.48 10^6/uL (4.70-6.10); RED CELL DISTRIBUTION WIDTH 20.5 % (12.0-15.0); WHITE BLOOD COUNT 3.1 x10^3/uL (4.8-10.8)
[2021-02-26 05:49] LABS: ABNORMAL LYMPHS % (MANUAL) 0 %
[2021-02-26 05:50] LABS: CALCIUM 6.9 mg/dL (8.5-10.3); CREATININE 0.6 mg/dL (0.6-1.2)
[2021-02-26 06:17] LABS: BAND NEUTROPHILS % (MANUAL) 6 %; LYMPHOCYTES # (MANUAL) 1.9 10^3/uL (1.5-3.5); LYMPHOCYTES % (MANUAL) 60 %; MONOCYTES # (MANUAL) 0.2 10^3/uL (0.0-1.0); NEUTROPHILS # (MANUAL) 1.1 10^3/uL (1.5-6.6)
[2021-02-26 06:18] LABS: PLATELET ESTIMATE, MANUAL NORMAL (130-450,000) (NORMAL); PLATELET MORPHOLOGY NORMAL APPEARANCE (NORMAL)
[2021-02-26 06:19] LABS: DIFFERENTIAL COMMENT MANUAL DIFFERENTIAL; WBC MORPHOLOGY (MULTIPLE) NORMAL APPEARANCE (NORMAL)
[2021-02-26] MEDS: SODIUM CHLORIDE FLUSH 0.9% 10 ML SYRINGE IVP PRN (06:41)
[2021-02-26] MEDS: PANTOPRAZOLE 40 MG VIAL IVP SCH (06:41)
--- NOTE | 2021-02-26 08:03 | Discharge Plan ---
Discharge Plan Problem Reviewed?: Yes Disposition: 50 Hospice/Home DC/Xfer Condition: Poor Prescriptions: Sulfamethox/Trimeth 800/160 [Bactrim Ds] 1 tablet PO BID 7 Days #10 tablet fentaNYL 25 MCG PATCH [Duragesic 25mcg] 1 patch TOP Q3D #8 patch Haloperidol Oral Soln [Haldol Oral Soln] 1 mg PO Q6H PRN #15 ml PRN Reason: Agitation Hyoscyamine [Levsin] 0.125 mg SL AC PRN #20 tablet PRN Reason: Excessive Secretions Morphine Ir [Ms Ir] 7.5 mg PO Q6H PRN #21 tablet PRN Reason: Dyspnea Amiodarone [Pacerone] 400 mg PO BID #28 tablet Activity Restrictions: Activity as Tolerated Shower Restrictions: No Instruction Topics: Lorazepam injection, Hydromorphone injection Health Concerns: You were admitted with sepsis, low blood pressure, pneumonia and are being discharged with oxygen, new medications for comfortable breathing and for pain and Hospice is directing the course. Plan of Treatment: You should continue some of your pre-hospital medications. New medications for comfort have been prescribed electronically to your pharmacy. If you have any questions, they should all be directed to the Hospice office. Follow the guidelines for contact precautions which we discussed. Oxygen setting should be at 10 L/min. Care Goals: Comfort. Assessment: The patient, and Hospice are agreeable with the plan. No Smoking: If you smoke, Please STOP! Call for help. Follow-up with: Jax Cuba MD [Provider Admit Priv/Credential] -
[2021-02-26 09:11] VITALS: BP 121/57
--- NOTE | 2021-02-26 18:45 | DISCHARGE SUMMARY ---
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 For 1 month he had noticed difficulty swallowing, food would regurgitate up and he had trouble swallowing even saliva. He was admitted here with that complaint and anemia in December 2019 and EGD was done here that showed a necrotic bleeding gastric ulcer/mass that was obstructing the GI tract, and he had esophageal varices. He required transfer to higher level of care. He was diagnosed with gastric cancer, got a Jejunostomy tube placed, puts liquefied feeds into that. He was admitted here again 1 month ago with fever, abdominal pain and was found to have a hemoglobin of 3, heme positive black stool, was febrile, lactic acid level elevated at 2.3, was tachycardic and abdominal imaging then showed an ileus and he required blood transfused and iv antibiotics and was transferred to . Subsequently, has had a port placed, had recent outpatient radiation of the cancer for 10 days and had chemo started on Friday02/18/2021 (5 days ago). Yesterday his jejunostomy tube fell out (it pulled on something), and today he had 2 loose BMs and felt weak and thus came to the ER. He was found to have BP of 90 systolic, Hgb 8 (which is his baseline), WBC 2.6, L.A. 2.4 and he received 2L of iv fluids in the ED. The repeat L.A. was 3.6. A CXR shows mild infiltrate vs atelectasis. He then went into witnessed Afib-flutter with RVR (which was new onset) at rate 180, in the ED, and underwent elective cardioversion successfully into sinus rhythm. He is being admitted to the ICU. At the previous admissions he wanted to be Full Code, but today, as we spoke about CODE STATUS, his desire is to be DNR/DNI. - HOSPITAL COURSE Hospital Course: 1) Sepsis He received aggressive iv hydration with crystalloids and was started empirically on Zosyn iv for presumed aspiration pneumonia causing the sepsis. Zosyn was later changed based on sputum culture results and sensitivities (see #5). His obtundation, low blood pressure and Lactic Acid improved. (2) Hypotension This resolved with iv hydration, done for several days. (3) Acute and chronic respiratory failure with hypoxia He was desaturating at admission, started on O2 at 2L per n.c. With aggressive iv hydration, he became rhoncherous and O2 supplement was required up to 15L. He received morphine IV as needed for dyspnea. IV fluids were decreased from to TKO and he got a dose of IV Lasix x1. We continued the scopolamine patch and added hyoscyaminefor secretions. He stabilized, needing 10L O2 per n.c. He was discharged to his home under the care of Hospice. (4) Aspiration pneumonia He was started empirically on Zosyn iv, later changed based on sensitivities (see #5). Yankauer suctioning of his pharynx had to be done, since stomach contents were being suctioned from the back of his mouth. (He probably has cont inued aspiration because of his gastric obstruction). He was discharged home under Hospice, and a suction machine for home was ordered. (5) Infection due to ESBL-producing Escherichia coli A sputum sample grew ESBL-producing E. coli. Isolation was ordered. We changed his iv antibiotic to Merram. He was discharged to take several more days of Bactrim DS, per the ESBL-E coli sensitivities. (6) V-tach At mid-hospitalization, he went into monomorphic V. tach at a rate of 220 and with it, he was awake, despite a low BP. He did wish to be electively cardioverted out of VTach, which was done with Versed for sedation, but this put him back into A. fib. He was first treated with iv metoprolol for suppression of V.Tach. then we started treatment with amiodarone 400 mg b.i.d. per j tube, to suppress both his V. tach and control Afib rapid rate. (7) New onset atrial fibrillation When he presented in the ED, he went into new onset of A. fib with RVR and he was electively cardioverted into sinus rhythm. Two days later, after the V. tach was cardioverted, he went back into A. fib and he needed a Cardizem drip f or heart rate control. He was kept on his Lovenox 80 b.i.d. dose for his DVT history, which was also for stroke prevention in Afib. Both the IV Cardizem and IV metoprolol pushes were stopped and he was discharged home on Amiodarone per j tube to control Afib rate and suppress V. Tach. (8) Diarrhea This was likely caused by his radiation and chemotherapy. His stool was C. diff neg. Diarrhea improved with prn Imodium. (9) N&V (nausea and vomiting) This was likely caused by his chemotherapy and improved with prn Ativan, Compazine, Zofran and Scopolamine patch. He was discharged with Ativan and Scopolamine prescriptions. (10) Leukopenia due to antineoplastic chemotherapy White blood count dropped further from 2.6>> 1.4, then improved to 2.1>> 2.7>> 3.1. He will no longer be getting chemotherapy, from his GI Oncologist (per a telemedicine appontment the patient had with his Oncologist while here). At that point, the patient agreed to Hospice Care. (11) Gastric cancer The mass caused complete obstruction of his GI tract. He received a jejunostomy tube and was getting feedings via tube at home. We resumed feeds through his jejunostomy, which was replaced by the ED provider Dr. Samuel. Because of diarrhea, we changed the type of nutrition he gets through the J-tube, which is not hyperosmolar. He was discharged home with this newly started feeding solution. - ALLERGIES Allergies/Adverse Reactions: Allergies Allergy/AdvReac Type Severity Reaction Status Date / Time Tetanus Vaccines and Toxoid Allergy Unknown Verified 02/22/21 05:44 - MEDICATIONS Home Medications: Ambulatory Orders Medication Instructions Recorded Confirmed Citalopram [CeleXA] 10 mg PO DAILY 01/01/21 02/22/21 Zolpidem Tartrate [Ambien] 10 mg PO QPM PRN 01/01/21 02/22/21 Scopolamine Patch [Transderm-Scop] 1 each TOP Q3D 01/16/21 02/22/21 Enoxaparin Sodium [Lovenox] 80 mg SQ BID 02/22/21 02/22/21 LORazepam [Ativan] 0.5 mg PO TID PRN 02/22/21 02/22/21 Loperamide [Imodium] 2 mg PO PRN PRN 02/22/21 02/22/21 OLANZapine [Olanzapine] 2.5 mg PO QPM 02/22/21 02/22/21 Omeprazole [PriLOSEC] 20 mg PO DAILY 02/22/21 02/22/21 Ondansetron Odt [Zofran Odt] 4 mg SL Q8H PRN 02/22/21 02/22/21 Prochlorperazine [Compazine] 5 mg PO Q8H PRN 02/22/21 02/22/21 oxyCODONE [Roxicodone] 10 mg PO 5XD PRN 02/25/21 02/25/21 Acetaminophen [Tylenol] 640 mg NG Q6HR PRN 02/26/21 Amiodarone [Pacerone] 400 mg PO BID #28 tablet 02/26/21 Haloperidol Oral Soln [Haldol Oral 1 mg PO Q6H PRN #15 ml 02/26/21 Soln] Hyoscyamine [Levsin] 0.125 mg SL AC PRN #20 tablet 02/26/21 Morphine Ir [Ms Ir] 7.5 mg PO Q6H PRN #21 tablet 02/26/21 Sulfamethox/Trimeth 800/160 1 tablet PO BID 7 Days #10 tablet 02/26/21 [Bactrim Ds] fentaNYL 25 MCG PATCH [Duragesic 1 patch TOP Q3D #8 patch 02/26/21 25mcg] - PHYSICAL EXAM AT DISCHARGE General Appearance: positive: No acute distress, Lethargic, Other (Temporal wasting) Eyes Bilateral: positive: Normal inspection, EOMI ENT: positive: Dry mucous membranes, Other (Oral hygiene poor, Yankauer suction being used frequently by himself) Neck: positive: Nml inspection, No JVD Respiratory: positive: Rhonchi Cardiovascular: positive: No murmur, Irregularly irregular Abdomen: positive: Non-tender, Other (Distended) Skin: positive: Warm, Dry Extremities: positive: No pedal edema, Other (R BKA, stump is tender, but is warm and dry) Neurologic/Psychiatric: positive: Oriented x3, Other (Lethargic but awakens) - LABS Result Diagrams: 02/26/21 04:53 02/26/21 04:53 - DIAGNOSTIC IMAGING Diagnostic Imaging Results: Final report reviewed - SEPSIS Sepsis Criteria: Recorded Heart Rate greater than 90 bpm, SBP less than 90 mmHg, Metabolic: lactate > 2 mmol/L - FOLLOW UP Follow Up: He was discharged home with Hospice care for end-of-life. - TIME SPENT Time Spent in Discharge (Minutes): 50
== END 2021-02-26 08:50 | disposition hospice, home (50) | DRG 871 ==
LOC: EDUNIT# → ED 05:40 → ICU 09:28
PROVIDERS: ADMIT Internal Medicine; ATTEND Internal Medicine
DX: A41.51 Sepsis due to Escherichia coli [E. coli] (principal); E86.0 Dehydration; R11.14 Bilious vomiting; J69.0 Pneumonitis due to inhalation of food and vomit; R00.0 Tachycardia, unspecified; J96.21 Acute and chronic respiratory failure with hypoxia; Z20.822 Contact with and (suspected) exposure to COVID-19; I47.2 Ventricular tachycardia; Z79.899 Other long term (current) drug therapy; K94.13 Enterostomy malfunction; K52.1 Toxic gastroenteritis and colitis; C16.9 Malignant neoplasm of stomach, unspecified; I48.92 Unspecified atrial flutter; C79.89 Secondary malignant neoplasm of other specified sites; Z66 Do not resuscitate; T45.1X5A Adverse effect of antineoplastic and immunosuppressive drugs, initial encounter; R11.2 Nausea with vomiting, unspecified; D70.1 Agranulocytosis secondary to cancer chemotherapy; Z89.511 Acquired absence of right leg below knee; I95.9 Hypotension, unspecified; Z51.5 Encounter for palliative care; I48.91 Unspecified atrial fibrillation
CPT/HCPCS: 36415; 71045; 74018; 80048; 80053; 80076; 81003; 81599; 82040; 82330; 83605; 83690; 83735; 84100; 84134; 84443; 84484; 85025; 85610; 87040; 87070; 87077; 87150; 87181; 87205; 87493; 87631; 93005; 93306; A9270; J0153; J1170; J1650; J2060; J2185; J3490; J7040; 0202U; 81001; 87045; 87046; 87086; 94770

== ENCOUNTER 2021-02-26 09:02 | Outpatient (CLI) | payer MEDICARE, OTHER | END 2021-02-26 09:03 | disposition home or self-care (01) | LOC: EMS 09:02 | PROVIDERS: ATTEND Internal Medicine | DX: Z51.5 Encounter for palliative care (principal); D70.2 Other drug-induced agranulocytosis; T45.1X5A Adverse effect of antineoplastic and immunosuppressive drugs, initial encounter; A41.9 Sepsis, unspecified organism; Z74.01 Bed confinement status | CPT/HCPCS: A0425; A0428 ==